=== PATIENT | male | born 1965 | race Caucasian/White ===

== ENCOUNTER 2020-07-02 17:47 | Inpatient (IN) | payer OTHER, SELFPAY ==
[~2020-07-02] VITALS: Ht 175.3 cm; Wt 150.1 kg
[2020-07-02 18:09] VITALS: BP_SYST 164
[2020-07-02] MEDS ORDERED: LEVOFLOXACIN 500 MG/D5W 100 ML IV ONE (18:30)
[2020-07-02] MEDS ORDERED: IPRATROPIUM/ALBUTEROL SULFATE 3 ML AMPUL.NEB (DUONEB) INH ONE (18:30)
[2020-07-02] MEDS ORDERED: ALBUTEROL MDI INHALATION 8 GM INH INH PRN (18:45)
[2020-07-02 19:40] LABS: CALCIUM 8.1 mg/dL (8.4-11.0); CREATININE 1.4 mg/dL (0.55-1.30); POTASSIUM 5.3 mmol/L (3.5-5.1)
[2020-07-02 19:43] LABS: ALBUMIN 2.1 g/dL (3.4-4.8); TOTAL BILIRUBIN 0.4 mg/dL (0.0-1.0)
[2020-07-02 19:44] LABS: BASOPHILS # (AUTO) 0.1 K/uL (0.0-0.2); BASOPHILS % (AUTO) 0.9 % (0.0-2.0); HEMATOCRIT 51.9 % (36-54); HEMOGLOBIN 17.5 g/dL (14.0-18.0); LYMPHOCYTES # (AUTO) 0.9 K/uL (1.0-5.5); LYMPHOCYTES % (AUTO) 7.6 % (20.5-51.5); MEAN CORPUSCULAR HEMOGLOBIN 31 pg (27-31); MEAN CORPUSCULAR HGB CONC 34 % (32-36); MEAN CORPUSCULAR VOLUME 91 fL (79.0-98.0); MONOCYTES # (AUTO) 0.9 K/uL (0.0-1.0); MONOCYTES % (AUTO) 7.2 % (1.7-9.3); NEUTROPHILS % (AUTO) 84.3 % (40.0-70.0); PLATELET COUNT (AUTO) 323 K/uL (130-430); RED BLOOD CELL COUNT(AUTO) 5.69 MIL/uL (4.2-6.2); RED CELL DISTRIBUTION WIDTH 12.6 % (9.0-15.0); WHITE BLOOD COUNT (AUTO) 11.9 K/uL (4.8-10.8)
[2020-07-02 20:04] LABS: PROTHROMBIN TIME 10.4 SECS (9.5-12.5)
[2020-07-02 20:04] LABS: BILIRUBIN,URINE NEGATIVE (NEGATIVE); BLOOD, URINE 2+ (NEGATIVE); CLARITY/URINE CLEAR (CLEAR); COLOR,URINE YELLOW (YELLOW); GLUCOSE,URINE 3+ (NEGATIVE); KETONES,URINE 1+ (NEGATIVE); LEUKOCYTE ESTERASE ,URINE NEGATIVE (NEGATIVE); NITRITE, URINE NEGATIVE (NEGATIVE); PH,URINE 5.5 (5.0-8.0); PROTEIN URINE 2+ (NEGATIVE); UROBILINOGEN,URINE 0.2 (0.2-1.0)
[2020-07-02 20:15] LABS: RBC,URINE 0-3 /HPF (0-3)
[2020-07-02 20:16] LABS: BACTERIA,URINE RARE /HPF (None Seen); MUCUS,URINE None Seen /LPF (None Seen); WBC,URINE 0-3 /HPF (0-3)
[2020-07-02] MEDS ORDERED: COMMUNICATION ORDER XX ONE (21:30)
[2020-07-02] MEDS ORDERED: ONDANSETRON HCL 4 MG/2 ML VIAL IVP PRN (21:30)
[2020-07-02] MEDS ORDERED: HYDROcodone/ACETAMIN 7.5-325 MG TAB PO PRN (21:30)
[2020-07-02] MEDS ORDERED: ZOLPIDEM TARTRATE 5 MG TABLET PO PRN (21:30)
[2020-07-02] MEDS ORDERED: ACETAMINOPHEN 500 MG TABLET PO PRN (21:30)
[2020-07-02] MEDS ORDERED: DOCUSATE SODIUM 100 MG/10 ML UDC PO PRN (21:30)
[2020-07-02] MEDS ORDERED: DECADRON 4 MG TABLET ONE (22:46)
[2020-07-02] MEDS ORDERED: HEPARIN SODIUM,PORCINE 5,000 UNITS/ML VIAL ONE (22:47)
[2020-07-02] MEDS ORDERED: cefTRIAXone 1 GM IVPB PREMIX 50 ML IV ONE (22:48)
[2020-07-02] MEDS: cefTRIAXone 1 GM in D5W 50 ML IV SCH (23:03)
[2020-07-02] MEDS: DECADRON 4 MG TABLET PO SCH (23:03)
[2020-07-02] MEDS: NACL 0.9% 1,000 ML IV SCH (23:09)
[2020-07-02] MEDS: HEPARIN SODIUM,PORCINE 5,000 UNITS/ML VIAL SUBCUT SCH (23:10)
[2020-07-02 23:15] VITALS: BP_SYST 172
[2020-07-02 23:49] LABS: FREE T4 (FREE THYROXINE) 0.7 ng/dL (0.6-1.6); PHOSPHORUS 4.7 mg/dL (2.7-4.5); THYROID STIMULATING HORMONE 1.7 uIu/mL (0.34-4.82)
[2020-07-03] MEDS ORDERED: ENALAPRIL MALEATE Non-Formular 5 MG TABLET PO ONE (02:15)
[2020-07-03] MEDS ORDERED: LISINOPRIL 10 MG TABLET (PRINIVIL) PO ONE (03:00)
[2020-07-03] MEDS ORDERED: LISINOPRIL 10 MG TABLET (PRINIVIL) ONE (04:14)
[2020-07-03 04:38] LABS: INFLUENZA A&B ANTIGEN SCREEN NEGATIVE FOR A & B (NEGATIVE)
[2020-07-03] MEDS: NACL 0.9% 1,000 ML IV SCH ×3 (05:30→20:42)
[2020-07-03 07:31] LABS: BASOPHILS % (AUTO) 0.2 % (0.0-2.0); HEMATOCRIT 48.9 % (36-54); HEMOGLOBIN 16.7 g/dL (14.0-18.0); LYMPHOCYTES # (AUTO) 1.1 K/uL (1.0-5.5); LYMPHOCYTES % (AUTO) 9.1 % (20.5-51.5); MEAN CORPUSCULAR HEMOGLOBIN 31 pg (27-31); MEAN CORPUSCULAR HGB CONC 34 % (32-36); MEAN CORPUSCULAR VOLUME 91 fL (79.0-98.0); MONOCYTES # (AUTO) 0.8 K/uL (0.0-1.0); NEUTROPHILS % (AUTO) 83.7 % (40.0-70.0); PLATELET COUNT (AUTO) 297 K/uL (130-430); RED BLOOD CELL COUNT(AUTO) 5.37 MIL/uL (4.2-6.2); RED CELL DISTRIBUTION WIDTH 12.3 % (9.0-15.0)
[2020-07-03 08:00] VITALS: BP_SYST 156
[2020-07-03 08:08] LABS: ALBUMIN 1.8 g/dL (3.4-4.8); CALCIUM 7.4 mg/dL (8.4-11.0); CREATININE 1.36 mg/dL (0.55-1.30); POTASSIUM 5.3 mmol/L (3.5-5.1); TOTAL BILIRUBIN 0.3 mg/dL (0.0-1.0)
[2020-07-03] MEDS: HEPARIN SODIUM,PORCINE 5,000 UNITS/ML VIAL SUBCUT SCH (08:31)
[2020-07-03] MEDS: LISINOPRIL 10 MG TABLET (PRINIVIL) PO SCH ×2 (08:39→20:43)
[2020-07-03] MEDS: DECADRON 4 MG TABLET PO SCH (08:39)
[2020-07-03] MEDS: ASCORBIC ACID 500 MG TABLET PO SCH (08:39)
[2020-07-03] MEDS: PANTOPRAZOLE SODIUM 40 MG TAB PO SCH (08:39)
[2020-07-03] MEDS: AZITHROMYCIN 250 MG TABLET PO SCH (08:40)
[2020-07-03] MEDS: CHOLECALCIFEROL (VITAMIN D3) 5,000 UNIT TABLET PO SCH (08:40)
[2020-07-03 08:50] LABS: C-REACTIVE PROTEIN QUANT 5.5 mg/dL (0-0.5)
[2020-07-03] MEDS ORDERED: ENALAPRIL MALEATE Non-Formular 5 MG TABLET PO SCH (09:00)
[2020-07-03] MEDS ORDERED: ASCORBIC ACID 500 MG TABLET PO SCH (09:00)
[2020-07-03] MEDS ORDERED: POTASSIUM CHLORIDE 20 MEQ TAB.PRT.SR PO PRN (09:00)
[2020-07-03] MEDS ORDERED: D5W 1,000 ML IV PRN (12:15)
[2020-07-03] MEDS ORDERED: INSULIN REGULAR, HUMAN 100 UNITS/ML, 10 ML VIAL SUBCUT ONE (12:15)
[2020-07-03] MEDS ORDERED: GLUCOSE (DEXTROSE) ORAL GEL -Adults PO PRN (12:15)
[2020-07-03] MEDS ORDERED: DEXTROSE 50%-WATER 50 ML DISP.SYRIN IVP PRN (12:15)
[2020-07-03 12:24] LABS: ERYTHROCYTE SEDIMENTATION RATE 25 MM/HR (0-15)
[2020-07-03 12:30] VITALS: BP_SYST 163
[2020-07-03 16:13] VITALS: BP_SYST 165
[2020-07-03] MEDS ORDERED: *LOVENOX 1MG/KG Q24H/PHARMACY XX ONE (17:15)
[2020-07-03] MEDS: INSULIN REGULAR, HUMAN 100 UNITS/ML, 10 ML VIAL (humuLIN R) SUBCUT PRN (17:25)
[2020-07-03] MEDS: ENOXAPARIN SODIUM 120 MG/0.8 ML SYRINGE SUBCUT SCH (17:29)
[2020-07-03] MEDS: metFORMIN HCL 500 MG TABLET PO SCH (17:35)
[2020-07-03 20:37] VITALS: BP_SYST 142
[2020-07-03] MEDS: cefTRIAXone 1 GM in D5W 50 ML IV SCH (20:43)
[2020-07-03] MEDS ORDERED: INSULIN GLARGINE 100 UNITS/ML 10 ML VIAL SUBCUT ONE (21:45)
[2020-07-04] VITALS: BP_SYST 147
[2020-07-04] MEDS: NACL 0.9% 1,000 ML IV SCH ×3 (06:32→21:00)
[2020-07-04] MEDS: INSULIN REGULAR, HUMAN 100 UNITS/ML, 10 ML VIAL (humuLIN R) SUBCUT PRN ×4 (06:37→21:00)
[2020-07-04] MEDS: metFORMIN HCL 500 MG TABLET PO SCH ×2 (08:09→17:46)
[2020-07-04] MEDS: ASCORBIC ACID 500 MG TABLET PO SCH (08:09)
[2020-07-04] MEDS: PANTOPRAZOLE SODIUM 40 MG TAB PO SCH (08:09)
[2020-07-04] MEDS: AZITHROMYCIN 250 MG TABLET PO SCH (08:10)
[2020-07-04] MEDS: DECADRON 4 MG TABLET PO SCH (08:10)
[2020-07-04] MEDS: LISINOPRIL 10 MG TABLET (PRINIVIL) PO SCH ×2 (08:14→21:00)
[2020-07-04] MEDS: CHOLECALCIFEROL (VITAMIN D3) 5,000 UNIT TABLET PO SCH (08:14)
[2020-07-04 08:16] VITALS: BP_SYST 152
[2020-07-04 11:27] LABS: HEMATOCRIT 50.4 % (36-54); HEMOGLOBIN 17.1 g/dL (14.0-18.0); LYMPHOCYTES # (AUTO) 0.9 K/uL (1.0-5.5); LYMPHOCYTES % (AUTO) 6.5 % (20.5-51.5); MEAN CORPUSCULAR HEMOGLOBIN 31 pg (27-31); MEAN CORPUSCULAR HGB CONC 34 % (32-36); MEAN CORPUSCULAR VOLUME 91 fL (79.0-98.0); MONOCYTES # (AUTO) 0.8 K/uL (0.0-1.0); NEUTROPHILS # (AUTO) 11.9 K/uL (1.8-7.7); NEUTROPHILS % (AUTO) 87.5 % (40.0-70.0); PLATELET COUNT (AUTO) 317 K/uL (130-430); RED BLOOD CELL COUNT(AUTO) 5.56 MIL/uL (4.2-6.2); RED CELL DISTRIBUTION WIDTH 12.2 % (9.0-15.0); WHITE BLOOD COUNT (AUTO) 13.7 K/uL (4.8-10.8)
[2020-07-04 11:45] VITALS: BP_SYST 150
[2020-07-04 12:40] LABS: ALBUMIN 1.9 g/dL (3.4-4.8); CALCIUM 7.3 mg/dL (8.4-11.0); CREATININE 1.12 mg/dL (0.55-1.30); POTASSIUM 5.3 mmol/L (3.5-5.1); TOTAL BILIRUBIN 0.5 mg/dL (0.0-1.0)
[2020-07-04] MEDS ORDERED: glipiZIDE XL 5 MG TAB ( GLUCOTROL XL) PO ONE (14:45)
[2020-07-04 14:59] LABS: C-REACTIVE PROTEIN QUANT 2.8 mg/dL (0-0.5)
[2020-07-04 16:15] VITALS: BP_SYST 150
[2020-07-04 17:09] LABS: ERYTHROCYTE SEDIMENTATION RATE 8 MM/HR (0-15)
[2020-07-04 17:27] VITALS: BP_SYST 135
[2020-07-04] MEDS: ENOXAPARIN SODIUM 120 MG/0.8 ML SYRINGE SUBCUT SCH (17:47)
[2020-07-04 20:00] VITALS: BP_SYST 152
[2020-07-04] MEDS: INSULIN GLARGINE 100 UNITS/ML 10 ML VIAL SUBCUT SCH (21:00)
[2020-07-04] MEDS: cefTRIAXone 1 GM in D5W 50 ML IV SCH (21:00)
[2020-07-05 00:45] VITALS: BP_SYST 146
[2020-07-05] MEDS: NACL 0.9% 1,000 ML IV SCH ×3 (05:46→20:49)
[2020-07-05 08:00] VITALS: BP_SYST 127
[2020-07-05] MEDS: AZITHROMYCIN 250 MG TABLET PO SCH (09:20)
[2020-07-05] MEDS: ASCORBIC ACID 500 MG TABLET PO SCH (09:20)
[2020-07-05] MEDS: PANTOPRAZOLE SODIUM 40 MG TAB PO SCH (09:21)
[2020-07-05] MEDS: DECADRON 4 MG TABLET PO SCH (09:22)
[2020-07-05] MEDS: metFORMIN HCL 500 MG TABLET PO SCH ×2 (09:23→17:30)
[2020-07-05] MEDS: glipiZIDE XL 5 MG TAB ( GLUCOTROL XL) PO SCH (09:23)
[2020-07-05] MEDS: LISINOPRIL 10 MG TABLET (PRINIVIL) PO SCH ×2 (09:34→20:54)
[2020-07-05] MEDS: CHOLECALCIFEROL (VITAMIN D3) 5,000 UNIT TABLET PO SCH (09:35)
[2020-07-05 10:03] LABS: BASOPHILS % (AUTO) 0.1 % (0.0-2.0); EOSINOPHILS % (AUTO) 0.1 % (0.0-4.0); HEMATOCRIT 49.5 % (36-54); HEMOGLOBIN 16.9 g/dL (14.0-18.0); LYMPHOCYTES # (AUTO) 0.9 K/uL (1.0-5.5); LYMPHOCYTES % (AUTO) 6.6 % (20.5-51.5); MEAN CORPUSCULAR HEMOGLOBIN 30 pg (27-31); MEAN CORPUSCULAR HGB CONC 34 % (32-36); MEAN CORPUSCULAR VOLUME 89 fL (79.0-98.0); MONOCYTES # (AUTO) 0.7 K/uL (0.0-1.0); MONOCYTES % (AUTO) 5.2 % (1.7-9.3); NEUTROPHILS # (AUTO) 11.9 K/uL (1.8-7.7); PLATELET COUNT (AUTO) 281 K/uL (130-430); RED BLOOD CELL COUNT(AUTO) 5.55 MIL/uL (4.2-6.2); RED CELL DISTRIBUTION WIDTH 12.5 % (9.0-15.0); WHITE BLOOD COUNT (AUTO) 13.5 K/uL (4.8-10.8)
[2020-07-05 10:41] LABS: ALBUMIN 1.7 g/dL (3.4-4.8); CREATININE 1.02 mg/dL (0.55-1.30); POTASSIUM 4.2 mmol/L (3.5-5.1); TOTAL BILIRUBIN 0.3 mg/dL (0.0-1.0)
[2020-07-05 10:47] LABS: CALCIUM 7.7 mg/dL (8.4-11.0)
[2020-07-05 11:30] VITALS: BP_SYST 93
[2020-07-05 11:30] LABS: ERYTHROCYTE SEDIMENTATION RATE 65 MM/HR (0-15)
[2020-07-05 11:56] LABS: C-REACTIVE PROTEIN QUANT 5.4 mg/dL (0-0.5)
[2020-07-05 15:07] VITALS: BP_SYST 152
[2020-07-05] MEDS: ENOXAPARIN SODIUM 120 MG/0.8 ML SYRINGE SUBCUT SCH (17:31)
[2020-07-05] MEDS: INSULIN REGULAR, HUMAN 100 UNITS/ML, 10 ML VIAL (humuLIN R) SUBCUT PRN ×2 (17:35→20:57)
[2020-07-05 19:00] VITALS: BP_SYST 152
[2020-07-05 20:00] VITALS: BP_SYST 152
[2020-07-05] MEDS: cefTRIAXone 1 GM in D5W 50 ML IV SCH (20:54)
[2020-07-05] MEDS: INSULIN GLARGINE 100 UNITS/ML 10 ML VIAL SUBCUT SCH (20:56)
[2020-07-06] VITALS: BP_SYST 145
[2020-07-06] MEDS: NACL 0.9% 1,000 ML IV SCH ×3 (05:22→21:39)
[2020-07-06 08:00] VITALS: BP_SYST 140
[2020-07-06] MEDS: metFORMIN HCL 500 MG TABLET PO SCH ×2 (08:59→17:55)
[2020-07-06] MEDS: CHOLECALCIFEROL (VITAMIN D3) 5,000 UNIT TABLET PO SCH (09:00)
[2020-07-06] MEDS: DECADRON 4 MG TABLET PO SCH (09:00)
[2020-07-06] MEDS: ASCORBIC ACID 500 MG TABLET PO SCH (09:00)
[2020-07-06] MEDS: PANTOPRAZOLE SODIUM 40 MG TAB PO SCH (09:00)
[2020-07-06] MEDS: AZITHROMYCIN 250 MG TABLET PO SCH (09:00)
[2020-07-06] MEDS: glipiZIDE XL 5 MG TAB ( GLUCOTROL XL) PO SCH (09:00)
[2020-07-06] MEDS: LISINOPRIL 10 MG TABLET (PRINIVIL) PO SCH ×2 (09:02→21:39)
[2020-07-06 10:11] LABS: BASOPHILS % (AUTO) 0.2 % (0.0-2.0); EOSINOPHILS # (AUTO) 0.1 K/uL (0.0-0.4); EOSINOPHILS % (AUTO) 0.8 % (0.0-4.0); HEMATOCRIT 48.2 % (36-54); HEMOGLOBIN 16.5 g/dL (14.0-18.0); LYMPHOCYTES # (AUTO) 0.5 K/uL (1.0-5.5); LYMPHOCYTES % (AUTO) 4.9 % (20.5-51.5); MEAN CORPUSCULAR HEMOGLOBIN 31 pg (27-31); MEAN CORPUSCULAR HGB CONC 34 % (32-36); MEAN CORPUSCULAR VOLUME 91 fL (79.0-98.0); MONOCYTES # (AUTO) 0.6 K/uL (0.0-1.0); MONOCYTES % (AUTO) 5.7 % (1.7-9.3); NEUTROPHILS # (AUTO) 8.8 K/uL (1.8-7.7); NEUTROPHILS % (AUTO) 88.4 % (40.0-70.0); PLATELET COUNT (AUTO) 176 K/uL (130-430); RED BLOOD CELL COUNT(AUTO) 5.33 MIL/uL (4.2-6.2); RED CELL DISTRIBUTION WIDTH 12.5 % (9.0-15.0)
[2020-07-06 10:42] LABS: ALBUMIN 1.5 g/dL (3.4-4.8); CALCIUM 7.5 mg/dL (8.4-11.0); CREATININE 0.99 mg/dL (0.55-1.30); POTASSIUM 4.9 mmol/L (3.5-5.1); TOTAL BILIRUBIN 0.5 mg/dL (0.0-1.0)
[2020-07-06 12:00] VITALS: BP_SYST 142
[2020-07-06] MEDS: INSULIN REGULAR, HUMAN 100 UNITS/ML, 10 ML VIAL (humuLIN R) SUBCUT PRN ×2 (12:22→18:15)
[2020-07-06 12:36] LABS: ERYTHROCYTE SEDIMENTATION RATE 11 MM/HR (0-15)
[2020-07-06 13:19] LABS: C-REACTIVE PROTEIN QUANT 11.7 mg/dL (0-0.5)
[2020-07-06] MEDS: ENOXAPARIN SODIUM 120 MG/0.8 ML SYRINGE SUBCUT SCH (15:41)
[2020-07-06 16:00] VITALS: BP_SYST 144
[2020-07-06 20:00] VITALS: BP_SYST 129
[2020-07-06] MEDS: INSULIN GLARGINE 100 UNITS/ML 10 ML VIAL SUBCUT SCH (21:00)
[2020-07-06] MEDS: DOXYCYCLINE HYCLATE 100 MG in D5W 100 ML IV SCH (21:38)
[2020-07-06] MEDS: cefTRIAXone 1 GM in D5W 50 ML IV SCH (21:39)
[2020-07-07] MEDS: INSULIN REGULAR, HUMAN 100 UNITS/ML, 10 ML VIAL (humuLIN R) SUBCUT PRN ×3 (00:38→21:41)
[2020-07-07] MEDS: ENOXAPARIN SODIUM 120 MG/0.8 ML SYRINGE SUBCUT SCH ×2 (02:22→16:00)
[2020-07-07] MEDS: NACL 0.9% 1,000 ML IV SCH ×3 (06:48→22:00)
[2020-07-07 08:00] VITALS: BP_SYST 138
[2020-07-07] MEDS: metFORMIN HCL 500 MG TABLET PO SCH ×2 (08:00→19:27)
[2020-07-07 08:26] LABS: BASOPHILS # (AUTO) 0.1 K/uL (0.0-0.2); BASOPHILS % (AUTO) 0.5 % (0.0-2.0); EOSINOPHILS # (AUTO) 0.1 K/uL (0.0-0.4); EOSINOPHILS % (AUTO) 1.2 % (0.0-4.0); HEMATOCRIT 48.2 % (36-54); HEMOGLOBIN 16.5 g/dL (14.0-18.0); LYMPHOCYTES # (AUTO) 0.3 K/uL (1.0-5.5); LYMPHOCYTES % (AUTO) 3.1 % (20.5-51.5); MEAN CORPUSCULAR HEMOGLOBIN 31 pg (27-31); MEAN CORPUSCULAR HGB CONC 34 % (32-36); MEAN CORPUSCULAR VOLUME 91 fL (79.0-98.0); MONOCYTES # (AUTO) 0.6 K/uL (0.0-1.0); MONOCYTES % (AUTO) 5.5 % (1.7-9.3); NEUTROPHILS # (AUTO) 10.1 K/uL (1.8-7.7); NEUTROPHILS % (AUTO) 89.7 % (40.0-70.0); PLATELET COUNT (AUTO) 175 K/uL (130-430); RED BLOOD CELL COUNT(AUTO) 5.33 MIL/uL (4.2-6.2); RED CELL DISTRIBUTION WIDTH 12.7 % (9.0-15.0); WHITE BLOOD COUNT (AUTO) 11.3 K/uL (4.8-10.8)
[2020-07-07] MEDS: glipiZIDE XL 5 MG TAB ( GLUCOTROL XL) PO SCH (09:00)
[2020-07-07] MEDS: DOXYCYCLINE HYCLATE 100 MG in D5W 100 ML IV SCH ×2 (09:00→22:00)
[2020-07-07] MEDS: ASCORBIC ACID 500 MG TABLET PO SCH (09:00)
[2020-07-07 09:32] LABS: ALBUMIN 1.5 g/dL (3.4-4.8); CALCIUM 7.8 mg/dL (8.4-11.0); CREATININE 0.74 mg/dL (0.55-1.30); POTASSIUM 4.4 mmol/L (3.5-5.1); TOTAL BILIRUBIN 0.3 mg/dL (0.0-1.0)
[2020-07-07 09:33] LABS: ERYTHROCYTE SEDIMENTATION RATE 10 MM/HR (0-15)
[2020-07-07 10:49] VITALS: BP_SYST 138
[2020-07-07 10:49] LABS: C-REACTIVE PROTEIN QUANT 15.9 mg/dL (0-0.5)
[2020-07-07 11:07] VITALS: BP_SYST 127
[2020-07-07] MEDS: LISINOPRIL 10 MG TABLET (PRINIVIL) PO SCH ×2 (12:18→21:40)
[2020-07-07] MEDS: PANTOPRAZOLE SODIUM 40 MG TAB PO SCH (12:23)
[2020-07-07] MEDS: CHOLECALCIFEROL (VITAMIN D3) 5,000 UNIT TABLET PO SCH (12:24)
[2020-07-07] MEDS: IVERMECTIN 3 MG TABLET PO SCH (12:24)
[2020-07-07] MEDS: DECADRON 4 MG TABLET PO SCH (12:24)
[2020-07-07 15:31] VITALS: BP_SYST 142
[2020-07-07 20:15] VITALS: BP_SYST 152
[2020-07-07] MEDS: INSULIN GLARGINE 100 UNITS/ML 10 ML VIAL SUBCUT SCH (21:41)
[2020-07-07] MEDS: cefTRIAXone 1 GM in D5W 50 ML IV SCH (23:00)
[2020-07-08 00:15] VITALS: BP_SYST 125
[2020-07-08] MEDS: ENOXAPARIN SODIUM 120 MG/0.8 ML SYRINGE SUBCUT SCH ×2 (03:12→14:55)
[2020-07-08] MEDS: NACL 0.9% 1,000 ML IV SCH ×3 (06:20→22:30)
[2020-07-08] MEDS: INSULIN REGULAR, HUMAN 100 UNITS/ML, 10 ML VIAL (humuLIN R) SUBCUT PRN ×3 (06:25→17:59)
[2020-07-08 08:35] LABS: BASOPHILS % (AUTO) 0.2 % (0.0-2.0); EOSINOPHILS % (AUTO) 0.1 % (0.0-4.0); HEMOGLOBIN 15.8 g/dL (14.0-18.0); LYMPHOCYTES # (AUTO) 0.2 K/uL (1.0-5.5); LYMPHOCYTES % (AUTO) 2.9 % (20.5-51.5); MEAN CORPUSCULAR HEMOGLOBIN 31 pg (27-31); MEAN CORPUSCULAR HGB CONC 34 % (32-36); MEAN CORPUSCULAR VOLUME 91 fL (79.0-98.0); MONOCYTES # (AUTO) 0.6 K/uL (0.0-1.0); MONOCYTES % (AUTO) 6.7 % (1.7-9.3); NEUTROPHILS # (AUTO) 7.4 K/uL (1.8-7.7); NEUTROPHILS % (AUTO) 90.1 % (40.0-70.0); PLATELET COUNT (AUTO) 189 K/uL (130-430); RED BLOOD CELL COUNT(AUTO) 5.09 MIL/uL (4.2-6.2); RED CELL DISTRIBUTION WIDTH 12.4 % (9.0-15.0); WHITE BLOOD COUNT (AUTO) 8.2 K/uL (4.8-10.8)
[2020-07-08 09:00] VITALS: BP_SYST 124
[2020-07-08 09:00] LABS: ALBUMIN 1.5 g/dL (3.4-4.8); CALCIUM 7.6 mg/dL (8.4-11.0); CREATININE 0.74 mg/dL (0.55-1.30); POTASSIUM 4.6 mmol/L (3.5-5.1); TOTAL BILIRUBIN 0.3 mg/dL (0.0-1.0)
[2020-07-08] MEDS: glipiZIDE XL 5 MG TAB ( GLUCOTROL XL) PO SCH (09:33)
[2020-07-08] MEDS: metFORMIN HCL 500 MG TABLET PO SCH ×2 (09:33→18:37)
[2020-07-08] MEDS: DECADRON 4 MG TABLET PO SCH (09:33)
[2020-07-08] MEDS: ASCORBIC ACID 500 MG TABLET PO SCH (09:34)
[2020-07-08] MEDS: LISINOPRIL 10 MG TABLET (PRINIVIL) PO SCH ×2 (09:34→21:30)
[2020-07-08] MEDS: PANTOPRAZOLE SODIUM 40 MG TAB PO SCH (09:34)
[2020-07-08] MEDS: DOXYCYCLINE HYCLATE 100 MG in D5W 100 ML IV SCH ×2 (09:35→21:30)
[2020-07-08] MEDS: CHOLECALCIFEROL (VITAMIN D3) 5,000 UNIT TABLET PO SCH (09:43)
[2020-07-08] MEDS: IVERMECTIN 3 MG TABLET PO SCH (09:44)
[2020-07-08 10:21] LABS: C-REACTIVE PROTEIN QUANT 18.3 mg/dL (0-0.5)
[2020-07-08 11:20] VITALS: BP_SYST 131
[2020-07-08 11:35] LABS: ERYTHROCYTE SEDIMENTATION RATE 17 MM/HR (0-15)
[2020-07-08 15:15] VITALS: BP_SYST 130
[2020-07-08 20:05] VITALS: BP_SYST 149
[2020-07-08] MEDS: INSULIN GLARGINE 100 UNITS/ML 10 ML VIAL SUBCUT SCH (22:30)
[2020-07-08] MEDS: cefTRIAXone 1 GM in D5W 50 ML IV SCH (22:30)
[2020-07-09 00:05] VITALS: BP_SYST 145
[2020-07-09] MEDS: NACL 0.9% 1,000 ML IV SCH ×3 (01:15→14:16)
[2020-07-09] MEDS: ENOXAPARIN SODIUM 120 MG/0.8 ML SYRINGE SUBCUT SCH ×2 (05:00→14:16)
[2020-07-09 06:47] LABS: BASOPHILS # (AUTO) 0.1 K/uL (0.0-0.2); BASOPHILS % (AUTO) 0.5 % (0.0-2.0); EOSINOPHILS % (AUTO) 0.3 % (0.0-4.0); HEMATOCRIT 45.8 % (36-54); HEMOGLOBIN 15.8 g/dL (14.0-18.0); LYMPHOCYTES # (AUTO) 0.3 K/uL (1.0-5.5); LYMPHOCYTES % (AUTO) 2.5 % (20.5-51.5); MEAN CORPUSCULAR HEMOGLOBIN 31 pg (27-31); MEAN CORPUSCULAR HGB CONC 35 % (32-36); MEAN CORPUSCULAR VOLUME 90 fL (79.0-98.0); MONOCYTES # (AUTO) 0.8 K/uL (0.0-1.0); MONOCYTES % (AUTO) 6.1 % (1.7-9.3); NEUTROPHILS # (AUTO) 11.6 K/uL (1.8-7.7); NEUTROPHILS % (AUTO) 90.6 % (40.0-70.0); PLATELET COUNT (AUTO) 219 K/uL (130-430); RED BLOOD CELL COUNT(AUTO) 5.07 MIL/uL (4.2-6.2); RED CELL DISTRIBUTION WIDTH 12.9 % (9.0-15.0); WHITE BLOOD COUNT (AUTO) 12.8 K/uL (4.8-10.8)
[2020-07-09 07:22] LABS: ALBUMIN 1.5 g/dL (3.4-4.8); CALCIUM 7.9 mg/dL (8.4-11.0); CREATININE 0.76 mg/dL (0.55-1.30); POTASSIUM 4.4 mmol/L (3.5-5.1); TOTAL BILIRUBIN 0.1 mg/dL (0.0-1.0)
[2020-07-09 07:49] LABS: C-REACTIVE PROTEIN QUANT 10.1 mg/dL (0-0.5)
[2020-07-09 08:45] VITALS: BP_SYST 126
[2020-07-09] MEDS: PANTOPRAZOLE SODIUM 40 MG TAB PO SCH (08:45)
[2020-07-09] MEDS: ASCORBIC ACID 500 MG TABLET PO SCH (08:45)
[2020-07-09] MEDS: glipiZIDE XL 5 MG TAB ( GLUCOTROL XL) PO SCH (08:45)
[2020-07-09] MEDS: CHOLECALCIFEROL (VITAMIN D3) 5,000 UNIT TABLET PO SCH (08:45)
[2020-07-09] MEDS: metFORMIN HCL 500 MG TABLET PO SCH ×2 (08:45→18:13)
[2020-07-09] MEDS: DOXYCYCLINE HYCLATE 100 MG in D5W 100 ML IV SCH ×2 (08:45→20:43)
[2020-07-09] MEDS: DECADRON 4 MG TABLET PO SCH (08:45)
[2020-07-09 10:08] LABS: ERYTHROCYTE SEDIMENTATION RATE 14 MM/HR (0-15)
[2020-07-09] MEDS: INSULIN REGULAR, HUMAN 100 UNITS/ML, 10 ML VIAL (humuLIN R) SUBCUT PRN (18:13)
[2020-07-09 20:00] VITALS: BP_SYST 143
[2020-07-09] MEDS: lisinopriL 5 MG TABLET PO SCH (20:43)
[2020-07-09] MEDS: INSULIN GLARGINE 100 UNITS/ML 10 ML VIAL SUBCUT SCH (20:44)
[2020-07-10] VITALS: BP_SYST 145
[2020-07-10] MEDS: ENOXAPARIN SODIUM 120 MG/0.8 ML SYRINGE SUBCUT SCH ×2 (01:23→14:30)
[2020-07-10] MEDS: NACL 0.9% 1,000 ML IV SCH ×3 (05:30→21:30)
[2020-07-10 06:53] LABS: BASOPHILS % (AUTO) 0.1 % (0.0-2.0); EOSINOPHILS % (AUTO) 0.2 % (0.0-4.0); HEMATOCRIT 45.4 % (36-54); HEMOGLOBIN 15.3 g/dL (14.0-18.0); LYMPHOCYTES # (AUTO) 0.4 K/uL (1.0-5.5); LYMPHOCYTES % (AUTO) 3.9 % (20.5-51.5); MEAN CORPUSCULAR HEMOGLOBIN 31 pg (27-31); MEAN CORPUSCULAR HGB CONC 34 % (32-36); MEAN CORPUSCULAR VOLUME 91 fL (79.0-98.0); MONOCYTES # (AUTO) 0.7 K/uL (0.0-1.0); NEUTROPHILS % (AUTO) 89.8 % (40.0-70.0); PLATELET COUNT (AUTO) 196 K/uL (130-430); RED BLOOD CELL COUNT(AUTO) 4.98 MIL/uL (4.2-6.2); RED CELL DISTRIBUTION WIDTH 12.7 % (9.0-15.0); WHITE BLOOD COUNT (AUTO) 11.2 K/uL (4.8-10.8)
[2020-07-10 07:02] LABS: ALBUMIN 1.4 g/dL (3.4-4.8); CALCIUM 7.7 mg/dL (8.4-11.0); CREATININE 0.77 mg/dL (0.55-1.30); POTASSIUM 4.3 mmol/L (3.5-5.1); TOTAL BILIRUBIN 0.3 mg/dL (0.0-1.0)
[2020-07-10 08:00] VITALS: BP_SYST 142
[2020-07-10] MEDS: ASCORBIC ACID 500 MG TABLET PO SCH (08:45)
[2020-07-10] MEDS: PANTOPRAZOLE SODIUM 40 MG TAB PO SCH (08:46)
[2020-07-10] MEDS: DECADRON 4 MG TABLET PO SCH (08:46)
[2020-07-10] MEDS: CHOLECALCIFEROL (VITAMIN D3) 5,000 UNIT TABLET PO SCH (08:46)
[2020-07-10] MEDS: glipiZIDE XL 5 MG TAB ( GLUCOTROL XL) PO SCH (08:46)
[2020-07-10] MEDS: lisinopriL 5 MG TABLET PO SCH ×2 (08:47→20:58)
[2020-07-10] MEDS: metFORMIN HCL 500 MG TABLET PO SCH ×2 (08:47→17:25)
[2020-07-10] MEDS: DOXYCYCLINE HYCLATE 100 MG in D5W 100 ML IV SCH ×2 (08:50→20:58)
[2020-07-10 10:03] LABS: ERYTHROCYTE SEDIMENTATION RATE 13 MM/HR (0-15)
[2020-07-10 12:36] VITALS: BP_SYST 138
[2020-07-10 12:50] VITALS: BP_SYST 138
[2020-07-10 16:00] VITALS: BP_SYST 133
[2020-07-10 20:00] VITALS: BP_SYST 131
[2020-07-10] MEDS: INSULIN GLARGINE 100 UNITS/ML 10 ML VIAL SUBCUT SCH (21:09)
[2020-07-10] MEDS: INSULIN REGULAR, HUMAN 100 UNITS/ML, 10 ML VIAL (humuLIN R) SUBCUT PRN (21:10)
[2020-07-11] VITALS: BP_SYST 135
[2020-07-11] MEDS: ENOXAPARIN SODIUM 120 MG/0.8 ML SYRINGE SUBCUT SCH ×2 (02:34→14:34)
[2020-07-11] MEDS: NACL 0.9% 1,000 ML IV SCH ×3 (06:30→21:30)
[2020-07-11 08:00] VITALS: BP_SYST 147
[2020-07-11 08:52] LABS: BASOPHILS % (AUTO) 0.3 % (0.0-2.0); EOSINOPHILS % (AUTO) 0.3 % (0.0-4.0); HEMATOCRIT 45.5 % (36-54); HEMOGLOBIN 15.5 g/dL (14.0-18.0); LYMPHOCYTES # (AUTO) 0.5 K/uL (1.0-5.5); LYMPHOCYTES % (AUTO) 4.6 % (20.5-51.5); MEAN CORPUSCULAR HEMOGLOBIN 31 pg (27-31); MEAN CORPUSCULAR HGB CONC 34 % (32-36); MEAN CORPUSCULAR VOLUME 91 fL (79.0-98.0); MONOCYTES # (AUTO) 0.4 K/uL (0.0-1.0); MONOCYTES % (AUTO) 3.7 % (1.7-9.3); NEUTROPHILS # (AUTO) 10.3 K/uL (1.8-7.7); NEUTROPHILS % (AUTO) 91.1 % (40.0-70.0); PLATELET COUNT (AUTO) 178 K/uL (130-430); RED CELL DISTRIBUTION WIDTH 12.9 % (9.0-15.0); WHITE BLOOD COUNT (AUTO) 11.2 K/uL (4.8-10.8)
[2020-07-11 09:37] LABS: CREATININE 0.72 mg/dL (0.55-1.30); POTASSIUM 4.1 mmol/L (3.5-5.1)
[2020-07-11] MEDS: glipiZIDE XL 5 MG TAB ( GLUCOTROL XL) PO SCH (10:01)
[2020-07-11] MEDS: PANTOPRAZOLE SODIUM 40 MG TAB PO SCH (10:01)
[2020-07-11] MEDS: metFORMIN HCL 500 MG TABLET PO SCH ×2 (10:02→17:07)
[2020-07-11] MEDS: lisinopriL 5 MG TABLET PO SCH ×2 (10:02→21:00)
[2020-07-11] MEDS: DECADRON 4 MG TABLET PO SCH (10:02)
[2020-07-11] MEDS: ASCORBIC ACID 500 MG TABLET PO SCH (10:02)
[2020-07-11] MEDS: CHOLECALCIFEROL (VITAMIN D3) 5,000 UNIT TABLET PO SCH (10:03)
[2020-07-11] MEDS: DOXYCYCLINE HYCLATE 100 MG in D5W 100 ML IV SCH ×2 (10:03→21:00)
[2020-07-11 12:02] LABS: C-REACTIVE PROTEIN QUANT 13.8 mg/dL (0-0.5)
[2020-07-11 17:09] VITALS: BP_SYST 127
[2020-07-11 19:21] LABS: ERYTHROCYTE SEDIMENTATION RATE 4 MM/HR (0-15)
[2020-07-11 20:00] VITALS: BP_SYST 128
[2020-07-11] MEDS: INSULIN GLARGINE 100 UNITS/ML 10 ML VIAL SUBCUT SCH (21:00)
[2020-07-12] VITALS: BP_SYST 132
[2020-07-12] MEDS: ENOXAPARIN SODIUM 120 MG/0.8 ML SYRINGE SUBCUT SCH ×2 (04:08→13:51)
[2020-07-12] MEDS: NACL 0.9% 1,000 ML IV SCH ×3 (05:30→21:30)
[2020-07-12 08:00] VITALS: BP_SYST 135
[2020-07-12] MEDS: metFORMIN HCL 500 MG TABLET PO SCH ×2 (08:00→18:00)
[2020-07-12] MEDS: glipiZIDE XL 5 MG TAB ( GLUCOTROL XL) PO SCH (09:00)
[2020-07-12] MEDS: ASCORBIC ACID 500 MG TABLET PO SCH (09:00)
[2020-07-12] MEDS: CHOLECALCIFEROL (VITAMIN D3) 5,000 UNIT TABLET PO SCH (09:00)
[2020-07-12] MEDS: lisinopriL 5 MG TABLET PO SCH ×2 (09:00→21:00)
[2020-07-12] MEDS: PANTOPRAZOLE SODIUM 40 MG TAB PO SCH (09:00)
[2020-07-12] MEDS: DOXYCYCLINE HYCLATE 100 MG in D5W 100 ML IV SCH ×2 (09:39→21:00)
[2020-07-12 10:05] LABS: BASOPHILS # (AUTO) 0.1 K/uL (0.0-0.2); BASOPHILS % (AUTO) 0.7 % (0.0-2.0); EOSINOPHILS % (AUTO) 0.2 % (0.0-4.0); HEMATOCRIT 45.9 % (36-54); HEMOGLOBIN 15.4 g/dL (14.0-18.0); LYMPHOCYTES # (AUTO) 0.4 K/uL (1.0-5.5); MEAN CORPUSCULAR HEMOGLOBIN 31 pg (27-31); MEAN CORPUSCULAR HGB CONC 34 % (32-36); MEAN CORPUSCULAR VOLUME 92 fL (79.0-98.0); MONOCYTES # (AUTO) 0.4 K/uL (0.0-1.0); NEUTROPHILS # (AUTO) 13.9 K/uL (1.8-7.7); NEUTROPHILS % (AUTO) 93.1 % (40.0-70.0); PLATELET COUNT (AUTO) 181 K/uL (130-430); RED CELL DISTRIBUTION WIDTH 12.6 % (9.0-15.0)
[2020-07-12 10:21] LABS: CALCIUM 7.7 mg/dL (8.4-11.0); CREATININE 0.79 mg/dL (0.55-1.30); PHOSPHORUS 3.1 mg/dL (2.7-4.5)
[2020-07-12 12:00] VITALS: BP_SYST 125
[2020-07-12 13:00] LABS: C-REACTIVE PROTEIN QUANT 16.1 mg/dL (0-0.5)
[2020-07-12] MEDS: PIPERACILLIN/TAZO 4.5GM/DEX-IS 100 ML IV SCH ×2 (15:19→22:00)
[2020-07-12 15:30] VITALS: BP_SYST 142
[2020-07-12 17:20] VITALS: BP_SYST 127
[2020-07-12] MEDS: INSULIN GLARGINE 100 UNITS/ML 10 ML VIAL SUBCUT SCH (21:00)
[2020-07-12] MEDS ORDERED: MIDAZOLAM HCL IN 0.9 % NACL/PF 50 ML IV ONE (22:02)
[2020-07-12] MEDS ORDERED: MORPHINE I.V. DRIP 100 ML IV ONE (22:03)
[2020-07-12] MEDS ORDERED: LORazepam 2 MG/ML VIAL ONE (23:10)
[2020-07-12 23:57] LABS: ERYTHROCYTE SEDIMENTATION RATE > 150 MM/HR (0-15)
[2020-07-13] VITALS (17 sets, daily range): BP systolic 46–148
[2020-07-13] MEDS: ENOXAPARIN SODIUM 120 MG/0.8 ML SYRINGE SUBCUT SCH ×3 (02:22→21:34)
[2020-07-13] MEDS ORDERED: NOREPINEPHRINE 4 MG/4 ML VIAL IV ONE ×4 (02:28→23:05)
[2020-07-13] MEDS ORDERED: ENOXAPARIN SODIUM 60 MG/0.6 ML SYRINGE ONE ×2 (04:15→04:19)
[2020-07-13] MEDS: NACL 0.9% 1,000 ML IV SCH ×3 (05:30→21:10)
[2020-07-13] MEDS: PIPERACILLIN/TAZO 4.5GM/DEX-IS 100 ML IV SCH ×3 (06:15→23:41)
[2020-07-13 07:03] LABS: BASOPHILS # (AUTO) 0.1 K/uL (0.0-0.2); BASOPHILS % (AUTO) 0.4 % (0.0-2.0); EOSINOPHILS # (AUTO) 0.1 K/uL (0.0-0.4); EOSINOPHILS % (AUTO) 0.5 % (0.0-4.0); HEMATOCRIT 46.7 % (36-54); HEMOGLOBIN 15.4 g/dL (14.0-18.0); LYMPHOCYTES # (AUTO) 1.1 K/uL (1.0-5.5); LYMPHOCYTES % (AUTO) 5.5 % (20.5-51.5); MEAN CORPUSCULAR HEMOGLOBIN 31 pg (27-31); MEAN CORPUSCULAR HGB CONC 33 % (32-36); MEAN CORPUSCULAR VOLUME 94 fL (79.0-98.0); MONOCYTES # (AUTO) 0.5 K/uL (0.0-1.0); MONOCYTES % (AUTO) 2.2 % (1.7-9.3); NEUTROPHILS # (AUTO) 18.7 K/uL (1.8-7.7); NEUTROPHILS % (AUTO) 91.4 % (40.0-70.0); PLATELET COUNT (AUTO) 217 K/uL (130-430); RED BLOOD CELL COUNT(AUTO) 4.99 MIL/uL (4.2-6.2); RED CELL DISTRIBUTION WIDTH 13.1 % (9.0-15.0); WHITE BLOOD COUNT (AUTO) 20.4 K/uL (4.8-10.8)
[2020-07-13 07:38] LABS: ALBUMIN 1.5 g/dL (3.4-4.8); CALCIUM 7.8 mg/dL (8.4-11.0); CREATININE 1.4 mg/dL (0.55-1.30); PHOSPHORUS 5.6 mg/dL (2.7-4.5); TOTAL BILIRUBIN 0.7 mg/dL (0.0-1.0)
[2020-07-13] MEDS: MIDAZOLAM HCL IN 0.9 % NACL/PF 50 ML IV PRN ×3 (07:56→19:16)
[2020-07-13 07:57] LABS: POTASSIUM 4.9 mmol/L (3.5-5.1)
[2020-07-13] MEDS: MORPHINE I.V. DRIP 100 ML IV PRN ×3 (08:10→23:43)
[2020-07-13] MEDS: NOREPINEPHRINE BITARTRATE 4 MG in D5W 246 ML IV PRN ×5 (08:15→13:18)
[2020-07-13] MEDS: INSULIN REGULAR, HUMAN 100 UNITS/ML, 10 ML VIAL (humuLIN R) SUBCUT PRN ×2 (09:00→22:37)
[2020-07-13] MEDS: glipiZIDE XL 5 MG TAB ( GLUCOTROL XL) PO SCH (11:04)
[2020-07-13] MEDS: metFORMIN HCL 500 MG TABLET PO SCH ×2 (11:04→17:29)
[2020-07-13] MEDS: lisinopriL 5 MG TABLET PO SCH ×2 (11:05→21:00)
[2020-07-13] MEDS: ASCORBIC ACID 500 MG TABLET PO SCH (11:06)
[2020-07-13] MEDS: CHOLECALCIFEROL (VITAMIN D3) 5,000 UNIT TABLET PO SCH (11:06)
[2020-07-13] MEDS: PANTOPRAZOLE SODIUM 40 MG TAB PO SCH (11:07)
[2020-07-13] MEDS: DOXYCYCLINE HYCLATE 100 MG in D5W 100 ML IV SCH (11:14)
[2020-07-13] MEDS: PANTOPRAZOLE SODIUM 40 MG/VIAL (PROTONIX) IVP SCH (11:15)
[2020-07-13] MEDS ORDERED: HYDROCORTISONE SOD SUCC 100 MG/2 ML VIAL ONE (16:43)
[2020-07-13] MEDS ORDERED: HYDROCORTISONE SOD SUCC 100 MG/2 ML VIAL IVP ONE (17:00)
[2020-07-13] MEDS ORDERED: NACL 0.9% 1,000 ML IV ONE (17:00)
[2020-07-13] MEDS: PHENYLEPHRINE HCL 100 MG in NS 240 ML IV PRN (17:31)
[2020-07-13] MEDS: NOREPINEPHRINE BITARTRATE 32 MG in D5W 218 ML IV PRN (19:18)
[2020-07-13] MEDS: ALBUMIN HUMAN 25% 100 ML IV SCH ×2 (21:07→23:43)
[2020-07-13] MEDS: HYDROCORTISONE SOD SUCC 100 MG/2 ML VIAL IVP SCH (21:08)
[2020-07-13] MEDS: VASOPRESSIN 100 UNITS in D5W 45 ML IV PRN (21:09)
[2020-07-13] MEDS: INSULIN GLARGINE 100 UNITS/ML 10 ML VIAL SUBCUT SCH (21:17)
[2020-07-13] MEDS ORDERED: COMMUNICATION ORDER XX ONE (21:45)
[2020-07-14] VITALS (31 sets, daily range): BP systolic 77–152
[2020-07-14] MEDS: MIDAZOLAM HCL IN 0.9 % NACL/PF 50 ML IV PRN ×3 (03:33→22:47)
[2020-07-14] MEDS: ALBUMIN HUMAN 25% 100 ML IV SCH (03:34)
[2020-07-14] MEDS: NACL 0.9% 1,000 ML IV SCH ×3 (05:17→21:30)
[2020-07-14] MEDS: PIPERACILLIN/TAZO 4.5GM/DEX-IS 100 ML IV SCH ×3 (05:17→22:18)
[2020-07-14] MEDS: HYDROCORTISONE SOD SUCC 100 MG/2 ML VIAL IVP SCH ×3 (05:18→22:18)
[2020-07-14] MEDS: INSULIN REGULAR, HUMAN 100 UNITS/ML, 10 ML VIAL (humuLIN R) SUBCUT PRN ×4 (06:25→22:14)
[2020-07-14 06:48] LABS: HEMATOCRIT 36.8 % (36-54); MEAN CORPUSCULAR HEMOGLOBIN 31 pg (27-31); MEAN CORPUSCULAR HGB CONC 33 % (32-36); MEAN CORPUSCULAR VOLUME 94 fL (79.0-98.0); PLATELET COUNT (AUTO) 144 K/uL (130-430); RED CELL DISTRIBUTION WIDTH 13.5 % (9.0-15.0)
[2020-07-14 07:23] LABS: ALBUMIN 1.8 g/dL (3.4-4.8); CREATININE 3.84 mg/dL (0.55-1.30); PHOSPHORUS 8.4 mg/dL (2.7-4.5); TOTAL BILIRUBIN 0.9 mg/dL (0.0-1.0)
[2020-07-14] MEDS ORDERED: COMMUNICATION ORDER XX ONE (08:00)
[2020-07-14] MEDS ORDERED: ACETAMINOPHEN 500 MG TABLET NG PRN (08:08)
[2020-07-14] MEDS ORDERED: ASCORBIC ACID 500 MG TABLET NG SCH (08:09)
[2020-07-14] MEDS ORDERED: CHOLECALCIFEROL (VITAMIN D3) 5,000 UNIT TABLET NG SCH (08:10)
[2020-07-14] MEDS ORDERED: DOCUSATE SODIUM 100 MG/10 ML UDC NG PRN (08:15)
[2020-07-14] MEDS ORDERED: POTASSIUM CHLORIDE 20 MEQ TAB.PRT.SR NG PRN (08:15)
[2020-07-14 08:46] LABS: WHITE BLOOD COUNT (AUTO) 19.8 K/uL (4.8-10.8)
[2020-07-14] MEDS ORDERED: SUCCINYLCHOLINE CHLORIDE 20 MG/ML(QUELICIN) IVP ONE (09:13)
[2020-07-14] MEDS ORDERED: ETOMIDATE 20 MG/ 10 ML VIAL (AMIDATE) IVP ONE (09:13)
[2020-07-14 09:22] LABS: INR 1.3 (0.80-1.20); PROTHROMBIN TIME 13.7 SECS (9.5-12.5)
[2020-07-14 09:42] LABS: POTASSIUM 5.9 mmol/L (3.5-5.1)
[2020-07-14 09:43] LABS: CALCIUM 6.5 mg/dL (8.4-11.0)
[2020-07-14 09:45] LABS: ERYTHROCYTE SEDIMENTATION RATE 13 MM/HR (0-15)
[2020-07-14] MEDS: PANTOPRAZOLE SODIUM 40 MG/VIAL (PROTONIX) IVP SCH (09:47)
[2020-07-14] MEDS: CHOLECALCIFEROL (VITAMIN D3) 5,000 UNIT TABLET NG SCH (09:48)
[2020-07-14] MEDS: ASCORBIC ACID 500 MG TABLET NG SCH (09:48)
[2020-07-14] MEDS: lisinopriL 5 MG TABLET NG SCH ×2 (09:49→22:09)
[2020-07-14] MEDS: glipiZIDE XL 5 MG TAB ( GLUCOTROL XL) PO SCH (09:50)
[2020-07-14] MEDS: ENOXAPARIN SODIUM 120 MG/0.8 ML SYRINGE SUBCUT SCH ×2 (09:51→22:10)
[2020-07-14] MEDS: metFORMIN HCL 500 MG TABLET NG SCH ×2 (11:19→17:54)
[2020-07-14] MEDS: NOREPINEPHRINE BITARTRATE 32 MG in D5W 218 ML IV PRN (11:21)
[2020-07-14 12:06] LABS: C-REACTIVE PROTEIN QUANT 20.8 mg/dL (0-0.5)
[2020-07-14 12:54] LABS: BAND % (MANUAL) 3 % (0-6); BASOPHILS % (MANUAL) 0 % (0-2); EOSINOPHILS % (MANUAL) 0 % (0-7); LYMPHOCYTES % (MANUAL) 5 % (20-46); MONOCYTES % (MANUAL) 3 % (0-11)
[2020-07-14] MEDS ORDERED: SODIUM POLYSTYRENE SULFONATE 15 GM/60 ML UDBTL GT ONE (20:18)
[2020-07-14] MEDS ORDERED: ENOXAPARIN SODIUM 100 MG/ML SYRINGE ONE (21:47)
[2020-07-14] MEDS ORDERED: ENOXAPARIN SODIUM 30 MG/0.3 ML SYRINGE ONE (21:48)
[2020-07-14] MEDS: INSULIN GLARGINE 100 UNITS/ML 10 ML VIAL SUBCUT SCH (22:13)
[2020-07-14] MEDS: MORPHINE I.V. DRIP 100 ML IV PRN (22:45)
[2020-07-15] VITALS (29 sets, daily range): BP systolic 68–135
[2020-07-15] MEDS: NACL 0.9% 1,000 ML IV SCH ×3 (05:30→21:30)
[2020-07-15] MEDS: HYDROCORTISONE SOD SUCC 100 MG/2 ML VIAL IVP SCH ×3 (06:19→22:21)
[2020-07-15] MEDS: PIPERACILLIN/TAZO 4.5GM/DEX-IS 100 ML IV SCH ×3 (06:19→22:21)
[2020-07-15] MEDS: INSULIN REGULAR, HUMAN 100 UNITS/ML, 10 ML VIAL (humuLIN R) SUBCUT PRN ×4 (07:03→21:40)
[2020-07-15 07:45] LABS: BASOPHILS # (AUTO) 0.1 K/uL (0.0-0.2); BASOPHILS % (AUTO) 0.7 % (0.0-2.0); EOSINOPHILS % (AUTO) 0.1 % (0.0-4.0); HEMATOCRIT 39.5 % (36-54); HEMOGLOBIN 12.9 g/dL (14.0-18.0); LYMPHOCYTES # (AUTO) 0.7 K/uL (1.0-5.5); LYMPHOCYTES % (AUTO) 3.8 % (20.5-51.5); MEAN CORPUSCULAR HEMOGLOBIN 31 pg (27-31); MEAN CORPUSCULAR HGB CONC 33 % (32-36); MEAN CORPUSCULAR VOLUME 94 fL (79.0-98.0); MONOCYTES # (AUTO) 0.5 K/uL (0.0-1.0); MONOCYTES % (AUTO) 2.5 % (1.7-9.3); NEUTROPHILS # (AUTO) 16.8 K/uL (1.8-7.7); NEUTROPHILS % (AUTO) 92.9 % (40.0-70.0); PLATELET COUNT (AUTO) 131 K/uL (130-430); RED CELL DISTRIBUTION WIDTH 13.2 % (9.0-15.0); WHITE BLOOD COUNT (AUTO) 18.1 K/uL (4.8-10.8)
[2020-07-15 08:17] LABS: INR 1.5 (0.80-1.20); PROTHROMBIN TIME 14.8 SECS (9.5-12.5)
[2020-07-15] MEDS: ASCORBIC ACID 500 MG TABLET NG SCH (08:22)
[2020-07-15] MEDS: PANTOPRAZOLE SODIUM 40 MG/VIAL (PROTONIX) IVP SCH (08:22)
[2020-07-15] MEDS: glipiZIDE XL 5 MG TAB ( GLUCOTROL XL) PO SCH (08:22)
[2020-07-15] MEDS: metFORMIN HCL 500 MG TABLET NG SCH (08:22)
[2020-07-15] MEDS: CHOLECALCIFEROL (VITAMIN D3) 5,000 UNIT TABLET NG SCH (08:22)
[2020-07-15 08:24] LABS: ALBUMIN 1.9 g/dL (3.4-4.8); BILIRUBIN,DIRECT 0.3 mg/dL (0.0-0.3); CREATININE 6.06 mg/dL (0.55-1.30); PHOSPHORUS 7.9 mg/dL (2.7-4.5); TOTAL BILIRUBIN 0.7 mg/dL (0.0-1.0)
[2020-07-15] MEDS: lisinopriL 5 MG TABLET NG SCH (08:24)
[2020-07-15] MEDS: VASOPRESSIN 100 UNITS in D5W 45 ML IV PRN (08:25)
[2020-07-15] MEDS: PHENYLEPHRINE HCL 100 MG in NS 240 ML IV PRN (08:26)
[2020-07-15 08:31] LABS: ERYTHROCYTE SEDIMENTATION RATE 48 MM/HR (0-15)
[2020-07-15] MEDS: ENOXAPARIN SODIUM 120 MG/0.8 ML SYRINGE SUBCUT SCH (08:42)
[2020-07-15 09:22] LABS: CALCIUM 6.5 mg/dL (8.4-11.0); POTASSIUM 5.9 mmol/L (3.5-5.1)
[2020-07-15 09:57] LABS: C-REACTIVE PROTEIN QUANT 22.7 mg/dL (0-0.5)
[2020-07-15] MEDS ORDERED: NOREPINEPHRINE 4 MG/4 ML VIAL IV ONE (14:00)
[2020-07-15] MEDS: NOREPINEPHRINE BITARTRATE 32 MG in D5W 218 ML IV PRN (15:48)
[2020-07-15] MEDS ORDERED: HEPARIN SODIUM,PORCINE 5,000 UNITS/ML VIAL ONE (17:42)
[2020-07-15] MEDS: MIDAZOLAM HCL IN 0.9 % NACL/PF 50 ML IV PRN (20:18)
[2020-07-15] MEDS: INSULIN GLARGINE 100 UNITS/ML 10 ML VIAL SUBCUT SCH (21:44)
[2020-07-16] VITALS (28 sets, daily range): BP systolic 92–136
[2020-07-16] MEDS: NACL 0.9% 1,000 ML IV SCH ×3 (06:00→21:20)
[2020-07-16] MEDS: PIPERACILLIN/TAZO 4.5GM/DEX-IS 100 ML IV SCH ×3 (06:01→21:43)
[2020-07-16] MEDS: MORPHINE I.V. DRIP 100 ML IV PRN (06:02)
[2020-07-16] MEDS: HYDROCORTISONE SOD SUCC 100 MG/2 ML VIAL IVP SCH ×3 (06:03→21:44)
[2020-07-16] MEDS: INSULIN REGULAR, HUMAN 100 UNITS/ML, 10 ML VIAL (humuLIN R) SUBCUT PRN ×3 (06:52→21:33)
[2020-07-16] MEDS: ASCORBIC ACID 500 MG TABLET NG SCH (09:00)
[2020-07-16] MEDS ORDERED: ENOXAPARIN SODIUM 120 MG/0.8 ML SYRINGE SUBCUT SCH (09:00)
[2020-07-16] MEDS: CHOLECALCIFEROL (VITAMIN D3) 5,000 UNIT TABLET NG SCH (09:00)
[2020-07-16] MEDS: PANTOPRAZOLE SODIUM 40 MG/VIAL (PROTONIX) IVP SCH (09:13)
[2020-07-16] MEDS: MIDAZOLAM HCL IN 0.9 % NACL/PF 50 ML IV PRN (10:48)
[2020-07-16 17:43] LABS: BASOPHILS # (AUTO) 0.2 K/uL (0.0-0.2); BASOPHILS % (AUTO) 1.3 % (0.0-2.0); EOSINOPHILS % (AUTO) 0.2 % (0.0-4.0); HEMATOCRIT 37.5 % (36-54); HEMOGLOBIN 12.4 g/dL (14.0-18.0); LYMPHOCYTES # (AUTO) 0.5 K/uL (1.0-5.5); LYMPHOCYTES % (AUTO) 3.2 % (20.5-51.5); MEAN CORPUSCULAR HEMOGLOBIN 31 pg (27-31); MEAN CORPUSCULAR HGB CONC 33 % (32-36); MEAN CORPUSCULAR VOLUME 93 fL (79.0-98.0); MONOCYTES # (AUTO) 0.4 K/uL (0.0-1.0); MONOCYTES % (AUTO) 2.3 % (1.7-9.3); NEUTROPHILS # (AUTO) 14.5 K/uL (1.8-7.7); RED BLOOD CELL COUNT(AUTO) 4.02 MIL/uL (4.2-6.2); RED CELL DISTRIBUTION WIDTH 13.5 % (9.0-15.0); WHITE BLOOD COUNT (AUTO) 15.6 K/uL (4.8-10.8)
[2020-07-16 17:54] LABS: C-REACTIVE PROTEIN QUANT 8.5 mg/dL (0-0.5); PHOSPHORUS 8.7 mg/dL (2.7-4.5)
[2020-07-16 18:01] LABS: POTASSIUM 6.1 mmol/L (3.5-5.1)
[2020-07-16 18:02] LABS: CALCIUM 6.4 mg/dL (8.4-11.0); CREATININE 8.4 mg/dL (0.55-1.30)
[2020-07-16 18:08] LABS: PLATELET COUNT (AUTO) 188 K/uL (130-430)
[2020-07-16] MEDS ORDERED: SODIUM BICARBONATE 8.4% JECT 50 MEQ/50 ML SYRINGE IVP ONE (18:15)
[2020-07-16] MEDS ORDERED: CALCIUM GLUCONATE 1 GM in NS 100 ML IV ONE (18:15)
[2020-07-16 18:31] LABS: ERYTHROCYTE SEDIMENTATION RATE 38 MM/HR (0-15)
[2020-07-16] MEDS ORDERED: HEPARIN SODIUM,PORCINE 5,000 UNITS/ML VIAL ONE ×2 (20:43→20:44)
[2020-07-16] MEDS: INSULIN GLARGINE 100 UNITS/ML 10 ML VIAL SUBCUT SCH (21:34)
[2020-07-17] VITALS (24 sets, daily range): BP systolic 108–171
[2020-07-17] MEDS ORDERED: PHENYLEPHRINE HCL 10 MG/ML VIAL (NEOSYNEPHRINE) ONE (00:25)
[2020-07-17] MEDS: PHENYLEPHRINE HCL 100 MG in NS 240 ML IV PRN (00:54)
[2020-07-17] MEDS: MIDAZOLAM HCL IN 0.9 % NACL/PF 50 ML IV PRN ×2 (03:26→17:06)
[2020-07-17] MEDS: NACL 0.9% 1,000 ML IV SCH ×2 (05:30→12:53)
[2020-07-17] MEDS: PIPERACILLIN/TAZO 4.5GM/DEX-IS 100 ML IV SCH ×3 (05:46→22:34)
[2020-07-17] MEDS: HYDROCORTISONE SOD SUCC 100 MG/2 ML VIAL IVP SCH ×3 (05:46→22:35)
[2020-07-17 06:35] LABS: HEMATOCRIT 34.9 % (36-54); HEMOGLOBIN 11.7 g/dL (14.0-18.0); LYMPHOCYTES # (AUTO) 0.4 K/uL (1.0-5.5); MEAN CORPUSCULAR HEMOGLOBIN 31 pg (27-31); MEAN CORPUSCULAR HGB CONC 34 % (32-36); MEAN CORPUSCULAR VOLUME 92 fL (79.0-98.0); MONOCYTES # (AUTO) 0.5 K/uL (0.0-1.0); MONOCYTES % (AUTO) 4.2 % (1.7-9.3); NEUTROPHILS # (AUTO) 11.7 K/uL (1.8-7.7); PLATELET COUNT (AUTO) 86 K/uL (130-430); RED CELL DISTRIBUTION WIDTH 12.9 % (9.0-15.0); WHITE BLOOD COUNT (AUTO) 12.6 K/uL (4.8-10.8)
[2020-07-17] MEDS: INSULIN REGULAR, HUMAN 100 UNITS/ML, 10 ML VIAL (humuLIN R) SUBCUT PRN ×3 (06:43→17:19)
[2020-07-17 06:56] LABS: CREATININE 7.15 mg/dL (0.55-1.30); POTASSIUM 4.6 mmol/L (3.5-5.1)
[2020-07-17 07:01] LABS: CALCIUM 6.4 mg/dL (8.4-11.0)
[2020-07-17 07:26] LABS: C-REACTIVE PROTEIN QUANT 6.1 mg/dL (0-0.5)
[2020-07-17] MEDS ORDERED: *TPN PER PHARMACY XX PRN (08:30)
[2020-07-17] MEDS: PANTOPRAZOLE SODIUM 40 MG/VIAL (PROTONIX) IVP SCH (08:46)
[2020-07-17] MEDS: ASCORBIC ACID 500 MG TABLET NG SCH (08:46)
[2020-07-17] MEDS: CHOLECALCIFEROL (VITAMIN D3) 5,000 UNIT TABLET NG SCH (08:46)
[2020-07-17] MEDS ORDERED: HEPARIN SODIUM,PORCINE 5,000 UNITS/ML VIAL SUBCUT SCH (09:00)
[2020-07-17 10:18] LABS: PHOSPHORUS 7.5 mg/dL (2.7-4.5)
[2020-07-17 10:24] LABS: ERYTHROCYTE SEDIMENTATION RATE 50 MM/HR (0-15)
[2020-07-17] MEDS: MORPHINE I.V. DRIP 100 ML IV PRN (12:54)
[2020-07-17 13:44] LABS: NEUTROPHILS % (AUTO) 92.8 % (40.0-70.0)
[2020-07-17] MEDS ORDERED: CALCIUM GLUCONATE 1 GM in NS 100 ML IV ONE (19:45)
[2020-07-17] MEDS ORDERED: CALCIUM GLUCONATE 1 GM/10 ML VIAL ONE (20:19)
[2020-07-17] MEDS: INSULIN GLARGINE 100 UNITS/ML 10 ML VIAL SUBCUT SCH (20:59)
[2020-07-17] MEDS ORDERED: TPN CENTRAL IV SCH ×8 (21:00)
[2020-07-17] MEDS ORDERED: [UNRECOGNIZED DRUG - OTHER] IV SCH ×8 (21:00)
[2020-07-17] MEDS ORDERED: POTASSIUM CHLORIDE IV SCH ×8 (21:00)
[2020-07-17] MEDS ORDERED: SODIUM ACETATE IV SCH ×8 (21:00)
[2020-07-18] VITALS (24 sets, daily range): BP systolic 72–141
[2020-07-18] MEDS: NACL 0.9% 1,000 ML IV SCH ×2 (00:48→12:16)
[2020-07-18] MEDS: INSULIN REGULAR, HUMAN 100 UNITS/ML, 10 ML VIAL (humuLIN R) SUBCUT PRN ×5 (00:58→23:40)
[2020-07-18] MEDS: MIDAZOLAM HCL IN 0.9 % NACL/PF 50 ML IV PRN ×2 (05:20→19:12)
[2020-07-18] MEDS: PIPERACILLIN/TAZO 4.5GM/DEX-IS 100 ML IV SCH ×3 (05:46→21:04)
[2020-07-18] MEDS: HYDROCORTISONE SOD SUCC 100 MG/2 ML VIAL IVP SCH ×3 (05:46→21:03)
[2020-07-18] MEDS: PANTOPRAZOLE SODIUM 40 MG/VIAL (PROTONIX) IVP SCH (09:39)
[2020-07-18] MEDS: CHOLECALCIFEROL (VITAMIN D3) 5,000 UNIT TABLET NG SCH (09:39)
[2020-07-18] MEDS: ASCORBIC ACID 500 MG TABLET NG SCH (09:39)
[2020-07-18 11:05] LABS: BASOPHILS % (AUTO) 0.2 % (0.0-2.0); HEMATOCRIT 32.6 % (36-54); HEMOGLOBIN 10.9 g/dL (14.0-18.0); LYMPHOCYTES # (AUTO) 0.3 K/uL (1.0-5.5); LYMPHOCYTES % (AUTO) 2.5 % (20.5-51.5); MEAN CORPUSCULAR HEMOGLOBIN 31 pg (27-31); MEAN CORPUSCULAR HGB CONC 34 % (32-36); MEAN CORPUSCULAR VOLUME 92 fL (79.0-98.0); MONOCYTES # (AUTO) 0.3 K/uL (0.0-1.0); MONOCYTES % (AUTO) 2.8 % (1.7-9.3); NEUTROPHILS % (AUTO) 94.5 % (40.0-70.0); PLATELET COUNT (AUTO) 81 K/uL (130-430); RED BLOOD CELL COUNT(AUTO) 3.53 MIL/uL (4.2-6.2); RED CELL DISTRIBUTION WIDTH 13.4 % (9.0-15.0); WHITE BLOOD COUNT (AUTO) 10.6 K/uL (4.8-10.8)
[2020-07-18 11:46] LABS: ALBUMIN 1.3 g/dL (3.4-4.8); PHOSPHORUS 7.6 mg/dL (2.7-4.5); POTASSIUM 4.2 mmol/L (3.5-5.1); TOTAL BILIRUBIN 0.4 mg/dL (0.0-1.0)
[2020-07-18 12:00] LABS: CALCIUM 5.7 mg/dL (8.4-11.0); CREATININE 7.89 mg/dL (0.55-1.30)
[2020-07-18 12:12] LABS: C-REACTIVE PROTEIN QUANT 3.9 mg/dL (0-0.5)
[2020-07-18 12:45] LABS: ERYTHROCYTE SEDIMENTATION RATE 39 MM/HR (0-15)
[2020-07-18] MEDS ORDERED: HEPARIN SODIUM, PORCINE 10,000 UNITS/ 10 ML VIAL MC ONE (13:30)
[2020-07-18] MEDS ORDERED: HEPARIN SODIUM,PORCINE 5,000 UNITS/ML VIAL ONE (13:53)
[2020-07-18] MEDS: PHENYLEPHRINE HCL 100 MG in NS 240 ML IV PRN (14:38)
[2020-07-18] MEDS ORDERED: CALCIUM GLUCONATE 2 GM in NS 100 ML IV ONE (15:00)
[2020-07-18] MEDS ORDERED: TPN CENTRAL IV SCH ×9 (21:00)
[2020-07-18] MEDS ORDERED: [UNRECOGNIZED DRUG - OTHER] IV SCH ×9 (21:00)
[2020-07-18] MEDS ORDERED: POTASSIUM CHLORIDE IV SCH ×9 (21:00)
[2020-07-18] MEDS ORDERED: SODIUM ACETATE IV SCH ×9 (21:00)
[2020-07-18] MEDS: INSULIN GLARGINE 100 UNITS/ML 10 ML VIAL SUBCUT SCH (21:05)
[2020-07-18] MEDS: MORPHINE I.V. DRIP 100 ML IV PRN (22:08)
[2020-07-19] VITALS (30 sets, daily range): BP systolic 91–116
[2020-07-19] MEDS: HYDROCORTISONE SOD SUCC 100 MG/2 ML VIAL IVP SCH ×3 (06:03→22:00)
[2020-07-19] MEDS: INSULIN REGULAR, HUMAN 100 UNITS/ML, 10 ML VIAL (humuLIN R) SUBCUT PRN ×4 (06:06→23:36)
[2020-07-19 07:47] LABS: ALBUMIN 1.5 g/dL (3.4-4.8); POTASSIUM 4.2 mmol/L (3.5-5.1); TOTAL BILIRUBIN 0.4 mg/dL (0.0-1.0)
[2020-07-19 07:55] LABS: BASOPHILS % (AUTO) 0.3 % (0.0-2.0); HEMATOCRIT 34.6 % (36-54); HEMOGLOBIN 11.4 g/dL (14.0-18.0); LYMPHOCYTES # (AUTO) 0.2 K/uL (1.0-5.5); LYMPHOCYTES % (AUTO) 1.7 % (20.5-51.5); MEAN CORPUSCULAR HEMOGLOBIN 31 pg (27-31); MEAN CORPUSCULAR HGB CONC 33 % (32-36); MEAN CORPUSCULAR VOLUME 93 fL (79.0-98.0); MONOCYTES # (AUTO) 0.3 K/uL (0.0-1.0); MONOCYTES % (AUTO) 2.2 % (1.7-9.3); NEUTROPHILS # (AUTO) 12.1 K/uL (1.8-7.7); NEUTROPHILS % (AUTO) 95.8 % (40.0-70.0); PLATELET COUNT (AUTO) 85 K/uL (130-430); RED BLOOD CELL COUNT(AUTO) 3.72 MIL/uL (4.2-6.2); RED CELL DISTRIBUTION WIDTH 13.3 % (9.0-15.0); WHITE BLOOD COUNT (AUTO) 12.6 K/uL (4.8-10.8)
[2020-07-19 07:57] LABS: CALCIUM 6.8 mg/dL (8.4-11.0); CREATININE 7.89 mg/dL (0.55-1.30)
[2020-07-19 08:10] LABS: C-REACTIVE PROTEIN QUANT 4.4 mg/dL (0-0.5)
[2020-07-19] MEDS: CHOLECALCIFEROL (VITAMIN D3) 5,000 UNIT TABLET NG SCH (08:49)
[2020-07-19] MEDS: ASCORBIC ACID 500 MG TABLET NG SCH (08:49)
[2020-07-19] MEDS: PANTOPRAZOLE SODIUM 40 MG/VIAL (PROTONIX) IVP SCH (08:49)
[2020-07-19] MEDS: MIDAZOLAM HCL IN 0.9 % NACL/PF 50 ML IV PRN (10:47)
[2020-07-19 10:58] LABS: ERYTHROCYTE SEDIMENTATION RATE 49 MM/HR (0-15)
[2020-07-19] MEDS: HEPARIN SODIUM,PORCINE 5,000 UNITS/ML VIAL SUBCUT SCH ×2 (13:04→22:42)
[2020-07-19] MEDS ORDERED: CALCIUM GLUCONATE 1 GM in NS 100 ML IV ONE (13:30)
[2020-07-19] MEDS ORDERED: CALCIUM GLUCONATE 1 GM/10 ML VIAL ONE (15:24)
[2020-07-19] MEDS: NACL 0.9% 1,000 ML IV SCH (18:02)
[2020-07-19] MEDS ORDERED: SODIUM ACETATE IV SCH ×10 (21:00)
[2020-07-19] MEDS ORDERED: [UNRECOGNIZED DRUG - OTHER] IV SCH ×10 (21:00)
[2020-07-19] MEDS ORDERED: POTASSIUM CHLORIDE IV SCH ×10 (21:00)
[2020-07-19] MEDS ORDERED: TPN CENTRAL IV SCH ×10 (21:00)
[2020-07-19] MEDS: INSULIN GLARGINE 100 UNITS/ML 10 ML VIAL SUBCUT SCH (21:00)
[2020-07-19] MEDS ORDERED: HEPARIN SODIUM,PORCINE 5,000 UNITS/ML VIAL ONE (22:07)
[2020-07-19] MEDS ORDERED: HYDROCORTISONE SOD SUCC 100 MG/2 ML VIAL ONE (22:50)
[2020-07-20] VITALS (30 sets, daily range): BP systolic 86–108
[2020-07-20] MEDS: MORPHINE I.V. DRIP 100 ML IV PRN (03:13)
[2020-07-20] MEDS: PHENYLEPHRINE HCL 100 MG in NS 240 ML IV PRN (03:15)
[2020-07-20 06:45] LABS: BASOPHILS # (AUTO) 0.2 K/uL (0.0-0.2); BASOPHILS % (AUTO) 1.5 % (0.0-2.0); EOSINOPHILS % (AUTO) 0.2 % (0.0-4.0); HEMOGLOBIN 10.9 g/dL (14.0-18.0); LYMPHOCYTES # (AUTO) 0.3 K/uL (1.0-5.5); LYMPHOCYTES % (AUTO) 1.9 % (20.5-51.5); MEAN CORPUSCULAR HEMOGLOBIN 31 pg (27-31); MEAN CORPUSCULAR HGB CONC 33 % (32-36); MEAN CORPUSCULAR VOLUME 94 fL (79.0-98.0); MONOCYTES # (AUTO) 0.5 K/uL (0.0-1.0); NEUTROPHILS % (AUTO) 93.4 % (40.0-70.0); PLATELET COUNT (AUTO) 129 K/uL (130-430); RED BLOOD CELL COUNT(AUTO) 3.52 MIL/uL (4.2-6.2); RED CELL DISTRIBUTION WIDTH 13.5 % (9.0-15.0); WHITE BLOOD COUNT (AUTO) 17.2 K/uL (4.8-10.8)
[2020-07-20 06:51] LABS: POTASSIUM 4.6 mmol/L (3.5-5.1)
[2020-07-20] MEDS: HEPARIN SODIUM,PORCINE 5,000 UNITS/ML VIAL SUBCUT SCH ×3 (07:00→21:26)
[2020-07-20] MEDS: HYDROCORTISONE SOD SUCC 100 MG/2 ML VIAL IVP SCH ×3 (07:06→21:19)
[2020-07-20] MEDS: INSULIN REGULAR, HUMAN 100 UNITS/ML, 10 ML VIAL (humuLIN R) SUBCUT PRN ×3 (07:07→17:30)
[2020-07-20] MEDS ORDERED: HEPARIN SODIUM,PORCINE 5,000 UNITS/ML VIAL ONE ×2 (07:33→17:41)
[2020-07-20 08:05] LABS: CALCIUM 6.8 mg/dL (8.4-11.0); CREATININE 8.67 mg/dL (0.55-1.30)
[2020-07-20 10:23] LABS: C-REACTIVE PROTEIN QUANT 4.8 mg/dL (0-0.5)
[2020-07-20 11:51] LABS: ERYTHROCYTE SEDIMENTATION RATE 25 MM/HR (0-15)
[2020-07-20] MEDS: INSULIN NPH/REGULAR 70-30, 100 UNITS/ML, 10 ML VIAL SUBCUT SCH ×2 (11:59→17:29)
[2020-07-20] MEDS: METOCLOPRAMIDE HCL 10 MG/2 ML VIAL IVP SCH ×2 (12:00→17:23)
[2020-07-20] MEDS: ASCORBIC ACID 500 MG TABLET NG SCH (12:01)
[2020-07-20] MEDS: PANTOPRAZOLE SODIUM 40 MG/VIAL (PROTONIX) IVP SCH (12:01)
[2020-07-20] MEDS: CHOLECALCIFEROL (VITAMIN D3) 5,000 UNIT TABLET NG SCH (12:01)
[2020-07-20] MEDS: ALBUTEROL MDI INHALATION 8 GM INH INH PRN (12:02)
[2020-07-20] MEDS ORDERED: HYDROCORTISONE SOD SUCC 100 MG/2 ML VIAL ONE (13:29)
[2020-07-20] MEDS: NACL 0.9% 1,000 ML IV SCH (13:45)
[2020-07-20] MEDS: MIDAZOLAM HCL IN 0.9 % NACL/PF 50 ML IV PRN (14:03)
[2020-07-20] MEDS ORDERED: SODIUM ACETATE IV SCH ×9 (21:00)
[2020-07-20] MEDS ORDERED: [UNRECOGNIZED DRUG - OTHER] IV SCH ×9 (21:00)
[2020-07-20] MEDS ORDERED: TPN CENTRAL IV SCH ×9 (21:00)
[2020-07-20] MEDS ORDERED: POTASSIUM CHLORIDE IV SCH ×9 (21:00)
[2020-07-20] MEDS: INSULIN GLARGINE 100 UNITS/ML 10 ML VIAL SUBCUT SCH (21:26)
[2020-07-21] VITALS (31 sets, daily range): BP systolic 81–173
[2020-07-21] MEDS: INSULIN REGULAR, HUMAN 100 UNITS/ML, 10 ML VIAL (humuLIN R) SUBCUT PRN ×5 (00:42→23:13)
[2020-07-21] MEDS ORDERED: PHENYLEPHRINE HCL 10 MG/ML VIAL (NEOSYNEPHRINE) ONE ×2 (03:46→21:40)
[2020-07-21] MEDS: PHENYLEPHRINE HCL 100 MG in NS 240 ML IV PRN ×3 (03:52→22:13)
[2020-07-21] MEDS: HYDROCORTISONE SOD SUCC 100 MG/2 ML VIAL IVP SCH ×3 (05:49→22:37)
[2020-07-21] MEDS: METOCLOPRAMIDE HCL 10 MG/2 ML VIAL IVP SCH ×3 (05:49→18:05)
[2020-07-21] MEDS: HEPARIN SODIUM,PORCINE 5,000 UNITS/ML VIAL SUBCUT SCH ×3 (05:52→22:49)
[2020-07-21] MEDS: INSULIN NPH/REGULAR 70-30, 100 UNITS/ML, 10 ML VIAL SUBCUT SCH ×2 (05:52→18:01)
[2020-07-21 07:14] LABS: BASOPHILS # (AUTO) 0.1 K/uL (0.0-0.2); BASOPHILS % (AUTO) 0.5 % (0.0-2.0); EOSINOPHILS % (AUTO) 0.1 % (0.0-4.0); HEMATOCRIT 34.3 % (36-54); HEMOGLOBIN 11.4 g/dL (14.0-18.0); LYMPHOCYTES # (AUTO) 0.3 K/uL (1.0-5.5); LYMPHOCYTES % (AUTO) 1.3 % (20.5-51.5); MEAN CORPUSCULAR HEMOGLOBIN 31 pg (27-31); MEAN CORPUSCULAR HGB CONC 33 % (32-36); MEAN CORPUSCULAR VOLUME 92 fL (79.0-98.0); MONOCYTES # (AUTO) 0.5 K/uL (0.0-1.0); MONOCYTES % (AUTO) 2.4 % (1.7-9.3); NEUTROPHILS % (AUTO) 95.7 % (40.0-70.0); PLATELET COUNT (AUTO) 167 K/uL (130-430); RED BLOOD CELL COUNT(AUTO) 3.71 MIL/uL (4.2-6.2); RED CELL DISTRIBUTION WIDTH 13.3 % (9.0-15.0)
[2020-07-21 08:25] LABS: PHOSPHORUS 8.1 mg/dL (2.7-4.5); POTASSIUM 4.1 mmol/L (3.5-5.1)
[2020-07-21] MEDS: PANTOPRAZOLE SODIUM 40 MG/VIAL (PROTONIX) IVP SCH (08:39)
[2020-07-21] MEDS: CHOLECALCIFEROL (VITAMIN D3) 5,000 UNIT TABLET NG SCH (08:40)
[2020-07-21] MEDS: ASCORBIC ACID 500 MG TABLET NG SCH (08:40)
[2020-07-21] MEDS: ALBUTEROL MDI INHALATION 8 GM INH INH PRN ×3 (08:59→16:54)
[2020-07-21] MEDS: NACL 0.9% 1,000 ML IV SCH (09:08)
[2020-07-21 09:16] LABS: CREATININE 7.59 mg/dL (0.55-1.30)
[2020-07-21] MEDS ORDERED: TPN CENTRAL IV SCH ×10 (21:00)
[2020-07-21] MEDS ORDERED: SODIUM ACETATE IV SCH ×10 (21:00)
[2020-07-21] MEDS ORDERED: [UNRECOGNIZED DRUG - OTHER] IV SCH ×10 (21:00)
[2020-07-21] MEDS ORDERED: POTASSIUM CHLORIDE IV SCH ×10 (21:00)
[2020-07-21] MEDS: MIDAZOLAM HCL IN 0.9 % NACL/PF 50 ML IV PRN (22:12)
[2020-07-21] MEDS: INSULIN GLARGINE 100 UNITS/ML 10 ML VIAL SUBCUT SCH (22:46)
[2020-07-22] VITALS (27 sets, daily range): BP systolic 98–175
[2020-07-22] MEDS: PIPERACILLIN/TAZO 2.25G/DEX-IS 50 ML IV SCH ×3 (05:44→21:44)
[2020-07-22] MEDS: HYDROCORTISONE SOD SUCC 100 MG/2 ML VIAL IVP SCH ×3 (05:49→21:44)
[2020-07-22] MEDS: HEPARIN SODIUM,PORCINE 5,000 UNITS/ML VIAL SUBCUT SCH ×3 (05:52→21:50)
[2020-07-22] MEDS: METOCLOPRAMIDE HCL 10 MG/2 ML VIAL IVP SCH ×3 (06:00→17:52)
[2020-07-22] MEDS: MORPHINE I.V. DRIP 100 ML IV PRN (06:19)
[2020-07-22] MEDS: INSULIN NPH/REGULAR 70-30, 100 UNITS/ML, 10 ML VIAL SUBCUT SCH ×2 (06:20→17:54)
[2020-07-22] MEDS: NACL 0.9% 1,000 ML IV SCH (06:21)
[2020-07-22] MEDS: INSULIN REGULAR, HUMAN 100 UNITS/ML, 10 ML VIAL (humuLIN R) SUBCUT PRN ×2 (06:43→11:30)
[2020-07-22 07:04] LABS: BASOPHILS % (AUTO) 0.3 % (0.0-2.0); EOSINOPHILS % (AUTO) 0.1 % (0.0-4.0); HEMATOCRIT 30.5 % (36-54); HEMOGLOBIN 10.1 g/dL (14.0-18.0); LYMPHOCYTES # (AUTO) 0.4 K/uL (1.0-5.5); LYMPHOCYTES % (AUTO) 2.6 % (20.5-51.5); MEAN CORPUSCULAR HEMOGLOBIN 31 pg (27-31); MEAN CORPUSCULAR HGB CONC 33 % (32-36); MEAN CORPUSCULAR VOLUME 92 fL (79.0-98.0); MONOCYTES # (AUTO) 0.8 K/uL (0.0-1.0); MONOCYTES % (AUTO) 5.2 % (1.7-9.3); NEUTROPHILS # (AUTO) 13.5 K/uL (1.8-7.7); NEUTROPHILS % (AUTO) 91.8 % (40.0-70.0); PLATELET COUNT (AUTO) 150 K/uL (130-430); RED BLOOD CELL COUNT(AUTO) 3.31 MIL/uL (4.2-6.2); RED CELL DISTRIBUTION WIDTH 13.6 % (9.0-15.0); WHITE BLOOD COUNT (AUTO) 14.7 K/uL (4.8-10.8)
[2020-07-22 07:31] LABS: ALBUMIN 1.4 g/dL (3.4-4.8); CREATININE 7.26 mg/dL (0.55-1.30); PHOSPHORUS 6.4 mg/dL (2.7-4.5); POTASSIUM 3.6 mmol/L (3.5-5.1); TOTAL BILIRUBIN 0.5 mg/dL (0.0-1.0)
[2020-07-22] MEDS: ASCORBIC ACID 500 MG TABLET NG SCH (08:52)
[2020-07-22] MEDS: CHOLECALCIFEROL (VITAMIN D3) 5,000 UNIT TABLET NG SCH (08:52)
[2020-07-22] MEDS: PANTOPRAZOLE SODIUM 40 MG/VIAL (PROTONIX) IVP SCH (08:52)
[2020-07-22] MEDS: PHENYLEPHRINE HCL 100 MG in NS 240 ML IV PRN (11:10)
[2020-07-22] MEDS: INSULIN GLARGINE 100 UNITS/ML 10 ML VIAL SUBCUT SCH (20:51)
[2020-07-22] MEDS: MIDAZOLAM HCL IN 0.9 % NACL/PF 50 ML IV PRN (21:58)
[2020-07-22] MEDS ORDERED: NOREPINEPHRINE 4 MG/4 ML VIAL IV ONE (23:37)
[2020-07-22] MEDS: NOREPINEPHRINE BITARTRATE 32 MG in D5W 218 ML IV PRN (23:53)
[2020-07-23] VITALS (31 sets, daily range): BP systolic 85–158
[2020-07-23] MEDS: PIPERACILLIN/TAZO 2.25G/DEX-IS 50 ML IV SCH ×3 (05:33→22:36)
[2020-07-23] MEDS: HYDROCORTISONE SOD SUCC 100 MG/2 ML VIAL IVP SCH (05:34)
[2020-07-23] MEDS: HEPARIN SODIUM,PORCINE 5,000 UNITS/ML VIAL SUBCUT SCH ×3 (05:53→22:00)
[2020-07-23] MEDS: INSULIN NPH/REGULAR 70-30, 100 UNITS/ML, 10 ML VIAL SUBCUT SCH ×2 (06:19→17:08)
[2020-07-23] MEDS: METOCLOPRAMIDE HCL 10 MG/2 ML VIAL IVP SCH ×3 (06:26→17:08)
[2020-07-23 07:02] LABS: BASOPHILS # (AUTO) 0.1 K/uL (0.0-0.2); BASOPHILS % (AUTO) 0.7 % (0.0-2.0); EOSINOPHILS # (AUTO) 0.2 K/uL (0.0-0.4); EOSINOPHILS % (AUTO) 1.4 % (0.0-4.0); HEMATOCRIT 29.9 % (36-54); HEMOGLOBIN 10.1 g/dL (14.0-18.0); LYMPHOCYTES # (AUTO) 0.7 K/uL (1.0-5.5); LYMPHOCYTES % (AUTO) 6.2 % (20.5-51.5); MEAN CORPUSCULAR HEMOGLOBIN 31 pg (27-31); MEAN CORPUSCULAR HGB CONC 34 % (32-36); MEAN CORPUSCULAR VOLUME 92 fL (79.0-98.0); MONOCYTES # (AUTO) 0.6 K/uL (0.0-1.0); MONOCYTES % (AUTO) 4.8 % (1.7-9.3); NEUTROPHILS # (AUTO) 10.2 K/uL (1.8-7.7); NEUTROPHILS % (AUTO) 86.9 % (40.0-70.0); PLATELET COUNT (AUTO) 167 K/uL (130-430); RED BLOOD CELL COUNT(AUTO) 3.26 MIL/uL (4.2-6.2); RED CELL DISTRIBUTION WIDTH 13.3 % (9.0-15.0); WHITE BLOOD COUNT (AUTO) 11.7 K/uL (4.8-10.8)
[2020-07-23 07:34] LABS: CALCIUM 7.4 mg/dL (8.4-11.0)
[2020-07-23 07:40] LABS: CREATININE 8.34 mg/dL (0.55-1.30)
[2020-07-23 08:49] LABS: C-REACTIVE PROTEIN QUANT 15.3 mg/dL (0-0.5)
[2020-07-23] MEDS: ASCORBIC ACID 500 MG TABLET NG SCH (08:52)
[2020-07-23] MEDS: CHOLECALCIFEROL (VITAMIN D3) 5,000 UNIT TABLET NG SCH (08:52)
[2020-07-23] MEDS: PANTOPRAZOLE SODIUM 40 MG/VIAL (PROTONIX) IVP SCH (08:52)
[2020-07-23 09:23] LABS: ERYTHROCYTE SEDIMENTATION RATE 89 MM/HR (0-15)
[2020-07-23] MEDS: MIDAZOLAM HCL IN 0.9 % NACL/PF 50 ML IV PRN (09:26)
[2020-07-23] MEDS: MORPHINE I.V. DRIP 100 ML IV PRN (09:33)
[2020-07-23] MEDS: ALBUTEROL MDI INHALATION 8 GM INH INH PRN (12:06)
[2020-07-23] MEDS ORDERED: NOREPINEPHRINE BITARTRATE 16 MG in NS 234 ML IV PRN (13:30)
[2020-07-23] MEDS: INSULIN GLARGINE 100 UNITS/ML 10 ML VIAL SUBCUT SCH (21:00)
[2020-07-24] VITALS (26 sets, daily range): BP systolic 101–169
[2020-07-24 05:15] LABS: BASOPHILS % (AUTO) 0.2 % (0.0-2.0); EOSINOPHILS # (AUTO) 0.2 K/uL (0.0-0.4); EOSINOPHILS % (AUTO) 2.7 % (0.0-4.0); HEMATOCRIT 27.4 % (36-54); HEMOGLOBIN 9.5 g/dL (14.0-18.0); LYMPHOCYTES # (AUTO) 0.6 K/uL (1.0-5.5); LYMPHOCYTES % (AUTO) 6.9 % (20.5-51.5); MEAN CORPUSCULAR HEMOGLOBIN 31 pg (27-31); MEAN CORPUSCULAR HGB CONC 35 % (32-36); MEAN CORPUSCULAR VOLUME 90 fL (79.0-98.0); MONOCYTES # (AUTO) 0.7 K/uL (0.0-1.0); MONOCYTES % (AUTO) 7.8 % (1.7-9.3); NEUTROPHILS # (AUTO) 7.3 K/uL (1.8-7.7); NEUTROPHILS % (AUTO) 82.4 % (40.0-70.0); PLATELET COUNT (AUTO) 145 K/uL (130-430); RED BLOOD CELL COUNT(AUTO) 3.04 MIL/uL (4.2-6.2); RED CELL DISTRIBUTION WIDTH 13.2 % (9.0-15.0); WHITE BLOOD COUNT (AUTO) 8.9 K/uL (4.8-10.8)
[2020-07-24 05:25] LABS: CALCIUM 7.1 mg/dL (8.4-11.0); POTASSIUM 3.2 mmol/L (3.5-5.1)
[2020-07-24 05:40] LABS: CREATININE 7.47 mg/dL (0.55-1.30)
[2020-07-24] MEDS: PIPERACILLIN/TAZO 2.25G/DEX-IS 50 ML IV SCH ×2 (06:47→14:36)
[2020-07-24] MEDS: HEPARIN SODIUM,PORCINE 5,000 UNITS/ML VIAL SUBCUT SCH ×2 (06:47→14:34)
[2020-07-24] MEDS: INSULIN NPH/REGULAR 70-30, 100 UNITS/ML, 10 ML VIAL SUBCUT SCH ×2 (07:00→17:00)
[2020-07-24] MEDS: METOCLOPRAMIDE HCL 10 MG/2 ML VIAL IVP SCH ×3 (07:18→18:30)
[2020-07-24 08:01] LABS: ERYTHROCYTE SEDIMENTATION RATE 98 MM/HR (0-15)
[2020-07-24 08:16] LABS: C-REACTIVE PROTEIN QUANT 10.4 mg/dL (0-0.5)
[2020-07-24] MEDS: PANTOPRAZOLE SODIUM 40 MG/VIAL (PROTONIX) IVP SCH (14:32)
[2020-07-24] MEDS: ASCORBIC ACID 500 MG TABLET NG SCH (14:35)
[2020-07-24] MEDS: CHOLECALCIFEROL (VITAMIN D3) 5,000 UNIT TABLET NG SCH (14:35)
[2020-07-24] MEDS: ALBUTEROL MDI INHALATION 8 GM INH INH PRN ×3 (14:39→22:33)
[2020-07-24] MEDS: INSULIN GLARGINE 100 UNITS/ML 10 ML VIAL SUBCUT SCH (21:00)
[2020-07-24] MEDS: DEXTROSE 50% JECT 50 ML DISP.SYRIN IVP PRN (22:36)
[2020-07-25] VITALS (31 sets, daily range): BP systolic 91–137
[2020-07-25] MEDS: HEPARIN SODIUM,PORCINE 5,000 UNITS/ML VIAL SUBCUT SCH ×4 (00:07→22:54)
[2020-07-25] MEDS: PIPERACILLIN/TAZO 2.25G/DEX-IS 50 ML IV SCH ×3 (00:11→16:00)
[2020-07-25] MEDS ORDERED: DEXTROSE 50% JECT 50 ML DISP.SYRIN ONE (00:32)
[2020-07-25] MEDS: DEXTROSE 50% JECT 50 ML DISP.SYRIN IVP PRN (00:37)
[2020-07-25] MEDS: ALBUTEROL MDI INHALATION 8 GM INH INH PRN ×3 (02:44→23:37)
[2020-07-25] MEDS: INSULIN NPH/REGULAR 70-30, 100 UNITS/ML, 10 ML VIAL SUBCUT SCH ×2 (07:00→17:00)
[2020-07-25] MEDS: METOCLOPRAMIDE HCL 10 MG/2 ML VIAL IVP SCH ×3 (07:05→17:00)
[2020-07-25 09:46] LABS: CALCIUM 7.8 mg/dL (8.4-11.0); POTASSIUM 3.6 mmol/L (3.5-5.1)
[2020-07-25 09:47] LABS: BASOPHILS % (AUTO) 0.1 % (0.0-2.0); EOSINOPHILS # (AUTO) 0.2 K/uL (0.0-0.4); EOSINOPHILS % (AUTO) 1.7 % (0.0-4.0); HEMATOCRIT 26.4 % (36-54); HEMOGLOBIN 9.2 g/dL (14.0-18.0); LYMPHOCYTES # (AUTO) 0.4 K/uL (1.0-5.5); LYMPHOCYTES % (AUTO) 4.3 % (20.5-51.5); MEAN CORPUSCULAR HEMOGLOBIN 32 pg (27-31); MEAN CORPUSCULAR HGB CONC 35 % (32-36); MEAN CORPUSCULAR VOLUME 91 fL (79.0-98.0); MONOCYTES # (AUTO) 0.4 K/uL (0.0-1.0); MONOCYTES % (AUTO) 4.8 % (1.7-9.3); NEUTROPHILS # (AUTO) 8.2 K/uL (1.8-7.7); NEUTROPHILS % (AUTO) 89.1 % (40.0-70.0); PLATELET COUNT (AUTO) 136 K/uL (130-430); RED BLOOD CELL COUNT(AUTO) 2.91 MIL/uL (4.2-6.2); RED CELL DISTRIBUTION WIDTH 13.3 % (9.0-15.0); WHITE BLOOD COUNT (AUTO) 9.2 K/uL (4.8-10.8)
[2020-07-25] MEDS: CHOLECALCIFEROL (VITAMIN D3) 5,000 UNIT TABLET NG SCH (10:02)
[2020-07-25] MEDS: PANTOPRAZOLE SODIUM 40 MG/VIAL (PROTONIX) IVP SCH (10:02)
[2020-07-25] MEDS: ASCORBIC ACID 500 MG TABLET NG SCH (10:05)
[2020-07-25 10:32] LABS: CREATININE 9.01 mg/dL (0.55-1.30)
[2020-07-25 12:40] LABS: ERYTHROCYTE SEDIMENTATION RATE 104 MM/HR (0-15)
[2020-07-25 12:41] LABS: C-REACTIVE PROTEIN QUANT 14.5 mg/dL (0-0.5)
[2020-07-25] MEDS ORDERED: HEPARIN SODIUM,PORCINE 5,000 UNITS/ML VIAL ONE (17:19)
[2020-07-26] VITALS (30 sets, daily range): BP systolic 68–135
[2020-07-26] MEDS: MIDAZOLAM HCL IN 0.9 % NACL/PF 50 ML IV PRN (00:04)
[2020-07-26] MEDS: PIPERACILLIN/TAZO 2.25G/DEX-IS 50 ML IV SCH ×3 (00:05→12:59)
[2020-07-26] MEDS: ALBUTEROL MDI INHALATION 8 GM INH INH PRN ×3 (03:41→22:37)
[2020-07-26] MEDS: METOCLOPRAMIDE HCL 10 MG/2 ML VIAL IVP SCH ×4 (06:40→17:18)
[2020-07-26] MEDS: INSULIN NPH/REGULAR 70-30, 100 UNITS/ML, 10 ML VIAL SUBCUT SCH ×2 (06:49→17:18)
[2020-07-26] MEDS: INSULIN REGULAR, HUMAN 100 UNITS/ML, 10 ML VIAL (humuLIN R) SUBCUT PRN ×3 (06:50→17:47)
[2020-07-26] MEDS: HEPARIN SODIUM,PORCINE 5,000 UNITS/ML VIAL SUBCUT SCH ×2 (06:51→13:01)
[2020-07-26] MEDS: MORPHINE I.V. DRIP 100 ML IV PRN (06:52)
[2020-07-26 07:47] LABS: CALCIUM 7.4 mg/dL (8.4-11.0); POTASSIUM 3.7 mmol/L (3.5-5.1)
[2020-07-26 08:41] LABS: CREATININE 7.52 mg/dL (0.55-1.30)
[2020-07-26 09:03] LABS: BASOPHILS # (AUTO) 0.1 K/uL (0.0-0.2); BASOPHILS % (AUTO) 0.4 % (0.0-2.0); EOSINOPHILS # (AUTO) 0.2 K/uL (0.0-0.4); EOSINOPHILS % (AUTO) 1.5 % (0.0-4.0); HEMATOCRIT 25.5 % (36-54); HEMOGLOBIN 8.7 g/dL (14.0-18.0); LYMPHOCYTES # (AUTO) 0.4 K/uL (1.0-5.5); LYMPHOCYTES % (AUTO) 2.8 % (20.5-51.5); MEAN CORPUSCULAR HEMOGLOBIN 31 pg (27-31); MEAN CORPUSCULAR HGB CONC 34 % (32-36); MEAN CORPUSCULAR VOLUME 91 fL (79.0-98.0); MONOCYTES # (AUTO) 0.5 K/uL (0.0-1.0); MONOCYTES % (AUTO) 3.4 % (1.7-9.3); NEUTROPHILS # (AUTO) 13.4 K/uL (1.8-7.7); NEUTROPHILS % (AUTO) 91.9 % (40.0-70.0); PLATELET COUNT (AUTO) 159 K/uL (130-430); RED BLOOD CELL COUNT(AUTO) 2.82 MIL/uL (4.2-6.2); RED CELL DISTRIBUTION WIDTH 13.3 % (9.0-15.0); WHITE BLOOD COUNT (AUTO) 14.6 K/uL (4.8-10.8)
[2020-07-26] MEDS ORDERED: BISACODYL 10 MG/SUPPOSITORY RC PRN (09:15)
[2020-07-26] MEDS: PANTOPRAZOLE SODIUM 40 MG/VIAL (PROTONIX) IVP SCH (09:27)
[2020-07-26] MEDS: ASCORBIC ACID 500 MG TABLET NG SCH (09:27)
[2020-07-26] MEDS: CHOLECALCIFEROL (VITAMIN D3) 5,000 UNIT TABLET NG SCH (09:27)
[2020-07-26 09:33] LABS: ERYTHROCYTE SEDIMENTATION RATE 109 MM/HR (0-15)
[2020-07-26 10:59] LABS: C-REACTIVE PROTEIN QUANT 19.3 mg/dL (0-0.5)
[2020-07-26] MEDS ORDERED: METOCLOPRAMIDE HCL 10 MG/2 ML VIAL ONE (17:17)
[2020-07-26] MEDS ORDERED: NOREPINEPHRINE BITARTRATE 4 MG in NS 246 ML IV PRN ×2 (17:30→21:30)
[2020-07-26] MEDS ORDERED: NOREPINEPHRINE 4 MG/4 ML VIAL IV ONE (20:37)
[2020-07-27] VITALS (31 sets, daily range): BP systolic 60–191
[2020-07-27] MEDS: PIPERACILLIN/TAZO 2.25G/DEX-IS 50 ML IV SCH ×4 (01:06→22:40)
[2020-07-27] MEDS: HEPARIN SODIUM,PORCINE 5,000 UNITS/ML VIAL SUBCUT SCH ×4 (01:15→22:00)
[2020-07-27] MEDS: METOCLOPRAMIDE HCL 10 MG/2 ML VIAL IVP SCH ×3 (02:00→18:00)
[2020-07-27] MEDS: ALBUTEROL MDI INHALATION 8 GM INH INH PRN (03:20)
[2020-07-27 06:49] LABS: BASOPHILS # (AUTO) 0.1 K/uL (0.0-0.2); BASOPHILS % (AUTO) 0.6 % (0.0-2.0); EOSINOPHILS # (AUTO) 0.4 K/uL (0.0-0.4); EOSINOPHILS % (AUTO) 2.4 % (0.0-4.0); HEMATOCRIT 24.5 % (36-54); HEMOGLOBIN 8.4 g/dL (14.0-18.0); LYMPHOCYTES # (AUTO) 0.6 K/uL (1.0-5.5); LYMPHOCYTES % (AUTO) 3.6 % (20.5-51.5); MEAN CORPUSCULAR HEMOGLOBIN 31 pg (27-31); MEAN CORPUSCULAR HGB CONC 34 % (32-36); MEAN CORPUSCULAR VOLUME 91 fL (79.0-98.0); MONOCYTES # (AUTO) 0.5 K/uL (0.0-1.0); MONOCYTES % (AUTO) 2.7 % (1.7-9.3); NEUTROPHILS # (AUTO) 15.9 K/uL (1.8-7.7); NEUTROPHILS % (AUTO) 90.7 % (40.0-70.0); PLATELET COUNT (AUTO) 153 K/uL (130-430); RED BLOOD CELL COUNT(AUTO) 2.69 MIL/uL (4.2-6.2); RED CELL DISTRIBUTION WIDTH 13.3 % (9.0-15.0); WHITE BLOOD COUNT (AUTO) 17.5 K/uL (4.8-10.8)
[2020-07-27] MEDS: INSULIN REGULAR, HUMAN 100 UNITS/ML, 10 ML VIAL (humuLIN R) SUBCUT PRN (06:51)
[2020-07-27] MEDS: INSULIN NPH/REGULAR 70-30, 100 UNITS/ML, 10 ML VIAL SUBCUT SCH ×2 (06:52→17:00)
[2020-07-27 08:00] LABS: POTASSIUM 3.6 mmol/L (3.5-5.1)
[2020-07-27 08:51] LABS: ERYTHROCYTE SEDIMENTATION RATE 108 MM/HR (0-15)
[2020-07-27 09:32] LABS: CREATININE 8.67 mg/dL (0.55-1.30)
[2020-07-27] MEDS: ASCORBIC ACID 500 MG TABLET NG SCH (10:48)
[2020-07-27] MEDS: PANTOPRAZOLE SODIUM 40 MG/VIAL (PROTONIX) IVP SCH (10:48)
[2020-07-27] MEDS: MORPHINE I.V. DRIP 100 ML IV PRN (10:48)
[2020-07-27] MEDS: CHOLECALCIFEROL (VITAMIN D3) 5,000 UNIT TABLET NG SCH (10:49)
[2020-07-27] MEDS ORDERED: HEPARIN SODIUM,PORCINE 5,000 UNITS/ML VIAL ONE (12:14)
[2020-07-27 12:46] LABS: C-REACTIVE PROTEIN QUANT 21.4 mg/dL (0-0.5)
[2020-07-27 14:56] LABS: CALCIUM 7.4 mg/dL (8.4-11.0)
[2020-07-27] MEDS ORDERED: METOCLOPRAMIDE HCL 10 MG/2 ML VIAL ONE (18:10)
[2020-07-28] VITALS (30 sets, daily range): BP systolic 96–138
[2020-07-28] MEDS: INSULIN REGULAR, HUMAN 100 UNITS/ML, 10 ML VIAL (humuLIN R) SUBCUT PRN ×4 (00:44→17:14)
[2020-07-28] MEDS ORDERED: METOCLOPRAMIDE HCL 10 MG/2 ML VIAL ONE ×3 (02:57→17:19)
[2020-07-28] MEDS: METOCLOPRAMIDE HCL 10 MG/2 ML VIAL IVP SCH ×3 (05:54→17:19)
[2020-07-28] MEDS: HEPARIN SODIUM,PORCINE 5,000 UNITS/ML VIAL SUBCUT SCH ×3 (06:00→23:43)
[2020-07-28] MEDS: PIPERACILLIN/TAZO 2.25G/DEX-IS 50 ML IV SCH ×3 (06:41→22:00)
[2020-07-28] MEDS: INSULIN NPH/REGULAR 70-30, 100 UNITS/ML, 10 ML VIAL SUBCUT SCH ×2 (06:43→17:16)
[2020-07-28] MEDS: ALBUTEROL MDI INHALATION 8 GM INH INH PRN ×4 (09:12→22:08)
[2020-07-28] MEDS: PANTOPRAZOLE SODIUM 40 MG/VIAL (PROTONIX) IVP SCH (09:14)
[2020-07-28] MEDS: CHOLECALCIFEROL (VITAMIN D3) 5,000 UNIT TABLET NG SCH (09:14)
[2020-07-28] MEDS: ASCORBIC ACID 500 MG TABLET NG SCH (09:14)
[2020-07-29] VITALS (24 sets, daily range): BP systolic 98–141
[2020-07-29] MEDS: PIPERACILLIN/TAZO 2.25G/DEX-IS 50 ML IV SCH ×3 (06:18→22:00)
[2020-07-29] MEDS: INSULIN NPH/REGULAR 70-30, 100 UNITS/ML, 10 ML VIAL SUBCUT SCH ×2 (06:26→17:58)
[2020-07-29 06:42] LABS: BASOPHILS # (AUTO) 0.2 K/uL (0.0-0.2); BASOPHILS % (AUTO) 0.8 % (0.0-2.0); EOSINOPHILS # (AUTO) 0.5 K/uL (0.0-0.4); EOSINOPHILS % (AUTO) 2.6 % (0.0-4.0); HEMATOCRIT 24.9 % (36-54); HEMOGLOBIN 8.5 g/dL (14.0-18.0); LYMPHOCYTES # (AUTO) 0.8 K/uL (1.0-5.5); MEAN CORPUSCULAR HEMOGLOBIN 31 pg (27-31); MEAN CORPUSCULAR HGB CONC 34 % (32-36); MEAN CORPUSCULAR VOLUME 91 fL (79.0-98.0); MONOCYTES # (AUTO) 0.7 K/uL (0.0-1.0); MONOCYTES % (AUTO) 3.7 % (1.7-9.3); NEUTROPHILS # (AUTO) 16.9 K/uL (1.8-7.7); NEUTROPHILS % (AUTO) 88.9 % (40.0-70.0); PLATELET COUNT (AUTO) 159 K/uL (130-430); RED BLOOD CELL COUNT(AUTO) 2.74 MIL/uL (4.2-6.2); RED CELL DISTRIBUTION WIDTH 13.9 % (9.0-15.0)
[2020-07-29 06:49] LABS: ALBUMIN 1.2 g/dL (3.4-4.8); POTASSIUM 3.4 mmol/L (3.5-5.1); TOTAL BILIRUBIN 0.4 mg/dL (0.0-1.0)
[2020-07-29] MEDS: MIDAZOLAM HCL IN 0.9 % NACL/PF 50 ML IV PRN (07:39)
[2020-07-29 07:43] LABS: CREATININE 8.26 mg/dL (0.55-1.30)
[2020-07-29 08:20] LABS: C-REACTIVE PROTEIN QUANT 21.8 mg/dL (0-0.5)
[2020-07-29] MEDS: ALBUTEROL MDI INHALATION 8 GM INH INH PRN ×4 (08:40→23:54)
[2020-07-29] MEDS: ASCORBIC ACID 500 MG TABLET NG SCH (09:08)
[2020-07-29] MEDS: PANTOPRAZOLE SODIUM 40 MG/VIAL (PROTONIX) IVP SCH (09:08)
[2020-07-29] MEDS: CHOLECALCIFEROL (VITAMIN D3) 5,000 UNIT TABLET NG SCH (09:08)
[2020-07-29] MEDS: BISACODYL 10 MG/SUPPOSITORY RC SCH (09:10)
[2020-07-29 09:33] LABS: ERYTHROCYTE SEDIMENTATION RATE 119 MM/HR (0-15)
[2020-07-29] MEDS ORDERED: HEPARIN SODIUM,PORCINE 5,000 UNITS/ML VIAL ONE ×2 (11:30→15:43)
[2020-07-29] MEDS: METOCLOPRAMIDE HCL 10 MG/2 ML VIAL IVP SCH ×2 (12:37→17:31)
[2020-07-29] MEDS: HEPARIN SODIUM,PORCINE 5,000 UNITS/ML VIAL SUBCUT SCH ×2 (13:57→22:00)
[2020-07-29] MEDS ORDERED: NOREPINEPHRINE 4 MG/4 ML VIAL IV ONE (14:30)
[2020-07-29] MEDS: NOREPINEPHRINE BITARTRATE 4 MG in NS 246 ML IV PRN (14:56)
[2020-07-30] VITALS (21 sets, daily range): BP systolic 86–111
[2020-07-30] MEDS: METOCLOPRAMIDE HCL 10 MG/2 ML VIAL IVP SCH ×4 (00:49→18:00)
[2020-07-30] MEDS: ALBUTEROL MDI INHALATION 8 GM INH INH PRN ×5 (03:59→23:10)
[2020-07-30] MEDS: PIPERACILLIN/TAZO 2.25G/DEX-IS 50 ML IV SCH ×3 (06:00→21:22)
[2020-07-30 06:42] LABS: CALCIUM 7.5 mg/dL (8.4-11.0); CREATININE 7.15 mg/dL (0.55-1.30); POTASSIUM 3.5 mmol/L (3.5-5.1)
[2020-07-30 06:48] LABS: BASOPHILS # (AUTO) 0.1 K/uL (0.0-0.2); BASOPHILS % (AUTO) 0.6 % (0.0-2.0); EOSINOPHILS # (AUTO) 0.4 K/uL (0.0-0.4); EOSINOPHILS % (AUTO) 2.2 % (0.0-4.0); HEMATOCRIT 22.5 % (36-54); HEMOGLOBIN 7.7 g/dL (14.0-18.0); LYMPHOCYTES # (AUTO) 0.5 K/uL (1.0-5.5); LYMPHOCYTES % (AUTO) 2.9 % (20.5-51.5); MEAN CORPUSCULAR HEMOGLOBIN 31 pg (27-31); MEAN CORPUSCULAR HGB CONC 34 % (32-36); MEAN CORPUSCULAR VOLUME 91 fL (79.0-98.0); MONOCYTES # (AUTO) 0.6 K/uL (0.0-1.0); MONOCYTES % (AUTO) 3.8 % (1.7-9.3); NEUTROPHILS # (AUTO) 14.6 K/uL (1.8-7.7); NEUTROPHILS % (AUTO) 90.5 % (40.0-70.0); PLATELET COUNT (AUTO) 134 K/uL (130-430); RED BLOOD CELL COUNT(AUTO) 2.47 MIL/uL (4.2-6.2); RED CELL DISTRIBUTION WIDTH 13.8 % (9.0-15.0); WHITE BLOOD COUNT (AUTO) 16.2 K/uL (4.8-10.8)
[2020-07-30] MEDS: HEPARIN SODIUM,PORCINE 5,000 UNITS/ML VIAL SUBCUT SCH ×3 (07:30→21:22)
[2020-07-30] MEDS: INSULIN NPH/REGULAR 70-30, 100 UNITS/ML, 10 ML VIAL SUBCUT SCH ×2 (08:30→18:18)
[2020-07-30] MEDS: PANTOPRAZOLE SODIUM 40 MG/VIAL (PROTONIX) IVP SCH (08:54)
[2020-07-30] MEDS: BISACODYL 10 MG/SUPPOSITORY RC SCH (08:54)
[2020-07-30] MEDS: ASCORBIC ACID 500 MG TABLET NG SCH (08:54)
[2020-07-30] MEDS: CHOLECALCIFEROL (VITAMIN D3) 5,000 UNIT TABLET NG SCH (08:55)
[2020-07-30] MEDS: INSULIN REGULAR, HUMAN 100 UNITS/ML, 10 ML VIAL (humuLIN R) SUBCUT PRN ×2 (12:02→18:19)
[2020-07-30] MEDS: MORPHINE I.V. DRIP 100 ML IV PRN (14:27)
[2020-07-30] MEDS: MIDAZOLAM HCL IN 0.9 % NACL/PF 50 ML IV PRN (14:32)
[2020-07-31] VITALS (31 sets, daily range): BP systolic 83–150
[2020-07-31] MEDS: PIPERACILLIN/TAZO 2.25G/DEX-IS 50 ML IV SCH ×3 (05:53→20:43)
[2020-07-31] MEDS: HEPARIN SODIUM,PORCINE 5,000 UNITS/ML VIAL SUBCUT SCH ×3 (05:54→20:44)
[2020-07-31] MEDS: INSULIN REGULAR, HUMAN 100 UNITS/ML, 10 ML VIAL (humuLIN R) SUBCUT PRN ×3 (05:55→18:14)
[2020-07-31] MEDS: INSULIN NPH/REGULAR 70-30, 100 UNITS/ML, 10 ML VIAL SUBCUT SCH ×2 (05:56→18:15)
[2020-07-31] MEDS: METOCLOPRAMIDE HCL 10 MG/2 ML VIAL IVP SCH ×5 (05:57→23:46)
[2020-07-31 06:49] LABS: BASOPHILS # (AUTO) 0.1 K/uL (0.0-0.2); BASOPHILS % (AUTO) 0.6 % (0.0-2.0); EOSINOPHILS # (AUTO) 0.2 K/uL (0.0-0.4); HEMATOCRIT 23.3 % (36-54); HEMOGLOBIN 7.8 g/dL (14.0-18.0); LYMPHOCYTES # (AUTO) 0.6 K/uL (1.0-5.5); LYMPHOCYTES % (AUTO) 2.9 % (20.5-51.5); MEAN CORPUSCULAR HEMOGLOBIN 31 pg (27-31); MEAN CORPUSCULAR HGB CONC 33 % (32-36); MEAN CORPUSCULAR VOLUME 92 fL (79.0-98.0); MONOCYTES # (AUTO) 0.7 K/uL (0.0-1.0); MONOCYTES % (AUTO) 3.7 % (1.7-9.3); NEUTROPHILS # (AUTO) 17.3 K/uL (1.8-7.7); NEUTROPHILS % (AUTO) 91.8 % (40.0-70.0); PLATELET COUNT (AUTO) 160 K/uL (130-430); RED BLOOD CELL COUNT(AUTO) 2.53 MIL/uL (4.2-6.2); RED CELL DISTRIBUTION WIDTH 14.3 % (9.0-15.0); WHITE BLOOD COUNT (AUTO) 18.9 K/uL (4.8-10.8)
[2020-07-31 07:31] LABS: CALCIUM 7.5 mg/dL (8.4-11.0); POTASSIUM 3.8 mmol/L (3.5-5.1)
[2020-07-31 07:34] LABS: CREATININE 8.14 mg/dL (0.55-1.30)
[2020-07-31] MEDS: ALBUTEROL MDI INHALATION 8 GM INH INH PRN ×3 (08:52→21:22)
[2020-07-31] MEDS: PANTOPRAZOLE SODIUM 40 MG/VIAL (PROTONIX) IVP SCH (08:59)
[2020-07-31] MEDS: CHOLECALCIFEROL (VITAMIN D3) 5,000 UNIT TABLET NG SCH (08:59)
[2020-07-31] MEDS: ASCORBIC ACID 500 MG TABLET NG SCH (08:59)
[2020-07-31] MEDS: BISACODYL 10 MG/SUPPOSITORY RC SCH (09:00)
[2020-07-31] MEDS ORDERED: HEPARIN SODIUM,PORCINE 5,000 UNITS/ML VIAL IVP ONE (10:30)
[2020-07-31] MEDS ORDERED: HEPARIN SODIUM,PORCINE 5,000 UNITS/ML VIAL ONE (10:49)
[2020-08-01] VITALS (30 sets, daily range): BP systolic 96–136
[2020-08-01] MEDS: ALBUTEROL MDI INHALATION 8 GM INH INH PRN ×2 (04:59→21:17)
[2020-08-01] MEDS: METOCLOPRAMIDE HCL 10 MG/2 ML VIAL IVP SCH ×4 (06:00→23:55)
[2020-08-01] MEDS: HEPARIN SODIUM,PORCINE 5,000 UNITS/ML VIAL SUBCUT SCH ×3 (06:00→22:10)
[2020-08-01] MEDS: PIPERACILLIN/TAZO 2.25G/DEX-IS 50 ML IV SCH ×3 (06:31→22:08)
[2020-08-01] MEDS: INSULIN NPH/REGULAR 70-30, 100 UNITS/ML, 10 ML VIAL SUBCUT SCH ×2 (06:32→17:27)
[2020-08-01 06:39] LABS: INR 1.1 (0.80-1.20); PROTHROMBIN TIME 11.3 SECS (9.5-12.5)
[2020-08-01 07:27] LABS: ALBUMIN 1.2 g/dL (3.4-4.8); CALCIUM 7.4 mg/dL (8.4-11.0); CREATININE 7.25 mg/dL (0.55-1.30); POTASSIUM 3.7 mmol/L (3.5-5.1); TOTAL BILIRUBIN 0.4 mg/dL (0.0-1.0)
[2020-08-01 07:31] LABS: BASOPHILS # (AUTO) 0.1 K/uL (0.0-0.2); BASOPHILS % (AUTO) 0.5 % (0.0-2.0); EOSINOPHILS # (AUTO) 0.4 K/uL (0.0-0.4); EOSINOPHILS % (AUTO) 2.7 % (0.0-4.0); HEMATOCRIT 22.8 % (36-54); HEMOGLOBIN 7.6 g/dL (14.0-18.0); MEAN CORPUSCULAR HEMOGLOBIN 31 pg (27-31); MEAN CORPUSCULAR HGB CONC 33 % (32-36); MEAN CORPUSCULAR VOLUME 92 fL (79.0-98.0); MONOCYTES # (AUTO) 0.7 K/uL (0.0-1.0); MONOCYTES % (AUTO) 4.3 % (1.7-9.3); NEUTROPHILS # (AUTO) 13.8 K/uL (1.8-7.7); NEUTROPHILS % (AUTO) 86.5 % (40.0-70.0); PLATELET COUNT (AUTO) 157 K/uL (130-430); RED BLOOD CELL COUNT(AUTO) 2.48 MIL/uL (4.2-6.2); RED CELL DISTRIBUTION WIDTH 14.3 % (9.0-15.0)
[2020-08-01] MEDS: ASCORBIC ACID 500 MG TABLET NG SCH (08:39)
[2020-08-01] MEDS: PANTOPRAZOLE SODIUM 40 MG/VIAL (PROTONIX) IVP SCH (08:40)
[2020-08-01] MEDS: CHOLECALCIFEROL (VITAMIN D3) 5,000 UNIT TABLET NG SCH (08:40)
[2020-08-01] MEDS ORDERED: PROPOFOL DRIP 100 ML IV PRN (10:45)
[2020-08-01] MEDS: INSULIN REGULAR, HUMAN 100 UNITS/ML, 10 ML VIAL (humuLIN R) SUBCUT PRN ×2 (14:34→17:28)
[2020-08-02] VITALS (28 sets, daily range): BP systolic 114–178
[2020-08-02] MEDS: INSULIN REGULAR, HUMAN 100 UNITS/ML, 10 ML VIAL (humuLIN R) SUBCUT PRN ×4 (00:12→17:27)
[2020-08-02] MEDS ORDERED: MIDAZOLAM IV ONE (02:21)
[2020-08-02] MEDS ORDERED: SODIUM CHLORIDE 0.9% IV ONE (02:21)
[2020-08-02] MEDS: PIPERACILLIN/TAZO 2.25G/DEX-IS 50 ML IV SCH ×3 (06:06→21:30)
[2020-08-02] MEDS: METOCLOPRAMIDE HCL 10 MG/2 ML VIAL IVP SCH ×3 (06:10→17:26)
[2020-08-02] MEDS: INSULIN NPH/REGULAR 70-30, 100 UNITS/ML, 10 ML VIAL SUBCUT SCH ×2 (06:12→17:27)
[2020-08-02] MEDS: HEPARIN SODIUM,PORCINE 5,000 UNITS/ML VIAL SUBCUT SCH ×3 (06:13→21:32)
[2020-08-02 07:23] LABS: BASOPHILS # (AUTO) 0.1 K/uL (0.0-0.2); BASOPHILS % (AUTO) 0.7 % (0.0-2.0); EOSINOPHILS # (AUTO) 0.4 K/uL (0.0-0.4); EOSINOPHILS % (AUTO) 2.9 % (0.0-4.0); HEMATOCRIT 22.5 % (36-54); HEMOGLOBIN 7.5 g/dL (14.0-18.0); LYMPHOCYTES # (AUTO) 0.9 K/uL (1.0-5.5); LYMPHOCYTES % (AUTO) 6.3 % (20.5-51.5); MEAN CORPUSCULAR HEMOGLOBIN 31 pg (27-31); MEAN CORPUSCULAR HGB CONC 33 % (32-36); MEAN CORPUSCULAR VOLUME 92 fL (79.0-98.0); MONOCYTES # (AUTO) 0.6 K/uL (0.0-1.0); MONOCYTES % (AUTO) 4.5 % (1.7-9.3); NEUTROPHILS # (AUTO) 11.8 K/uL (1.8-7.7); NEUTROPHILS % (AUTO) 85.6 % (40.0-70.0); PLATELET COUNT (AUTO) 154 K/uL (130-430); RED BLOOD CELL COUNT(AUTO) 2.45 MIL/uL (4.2-6.2); RED CELL DISTRIBUTION WIDTH 14.4 % (9.0-15.0); WHITE BLOOD COUNT (AUTO) 13.8 K/uL (4.8-10.8)
[2020-08-02 07:36] LABS: ALBUMIN 1.2 g/dL (3.4-4.8); CALCIUM 7.7 mg/dL (8.4-11.0); POTASSIUM 3.9 mmol/L (3.5-5.1); TOTAL BILIRUBIN 0.4 mg/dL (0.0-1.0)
[2020-08-02 07:58] LABS: INR 1.1 (0.80-1.20); PROTHROMBIN TIME 11.5 SECS (9.5-12.5)
[2020-08-02 08:18] LABS: CREATININE 8.35 mg/dL (0.55-1.30)
[2020-08-02] MEDS ORDERED: ALBUMIN HUMAN 25% 100 ML IV PRN (08:30)
[2020-08-02] MEDS: ALBUTEROL MDI INHALATION 8 GM INH INH PRN ×3 (09:01→20:08)
[2020-08-02] MEDS: CHOLECALCIFEROL (VITAMIN D3) 5,000 UNIT TABLET NG SCH (09:55)
[2020-08-02] MEDS: PANTOPRAZOLE SODIUM 40 MG/VIAL (PROTONIX) IVP SCH (09:55)
[2020-08-02] MEDS: ASCORBIC ACID 500 MG TABLET NG SCH (09:55)
[2020-08-02] MEDS ORDERED: HEPARIN SODIUM, PORCINE 10,000 UNITS/ 10 ML VIAL MC ONE (11:30)
[2020-08-02 11:37] LABS: C-REACTIVE PROTEIN QUANT 21.6 mg/dL (0-0.5)
[2020-08-02 12:29] LABS: ERYTHROCYTE SEDIMENTATION RATE 121 MM/HR (0-15)
[2020-08-02] MEDS: PROPOFOL DRIP 100 ML IV PRN (19:25)
[2020-08-03] VITALS (29 sets, daily range): BP systolic 90–147
[2020-08-03] MEDS: ALBUTEROL MDI INHALATION 8 GM INH INH PRN ×4 (00:13→21:43)
[2020-08-03] MEDS: METOCLOPRAMIDE HCL 10 MG/2 ML VIAL IVP SCH ×5 (00:27→23:06)
[2020-08-03] MEDS: INSULIN REGULAR, HUMAN 100 UNITS/ML, 10 ML VIAL (humuLIN R) SUBCUT PRN ×4 (00:37→17:34)
[2020-08-03] MEDS: PIPERACILLIN/TAZO 2.25G/DEX-IS 50 ML IV SCH ×3 (06:17→23:00)
[2020-08-03] MEDS: HEPARIN SODIUM,PORCINE 5,000 UNITS/ML VIAL SUBCUT SCH ×3 (06:18→22:00)
[2020-08-03] MEDS: INSULIN NPH/REGULAR 70-30, 100 UNITS/ML, 10 ML VIAL SUBCUT SCH ×2 (06:20→17:31)
[2020-08-03] MEDS: CHOLECALCIFEROL (VITAMIN D3) 5,000 UNIT TABLET NG SCH (10:16)
[2020-08-03] MEDS: ASCORBIC ACID 500 MG TABLET NG SCH (10:16)
[2020-08-03] MEDS: PANTOPRAZOLE SODIUM 40 MG/VIAL (PROTONIX) IVP SCH (10:16)
[2020-08-04] VITALS (28 sets, daily range): BP systolic 76–140
[2020-08-04] MEDS: INSULIN REGULAR, HUMAN 100 UNITS/ML, 10 ML VIAL (humuLIN R) SUBCUT PRN ×3 (00:11→17:12)
[2020-08-04] MEDS: HEPARIN SODIUM,PORCINE 5,000 UNITS/ML VIAL SUBCUT SCH ×3 (06:00→22:00)
[2020-08-04 06:34] LABS: BASOPHILS # (AUTO) 0.2 K/uL (0.0-0.2); BASOPHILS % (AUTO) 1.4 % (0.0-2.0); EOSINOPHILS # (AUTO) 0.5 K/uL (0.0-0.4); EOSINOPHILS % (AUTO) 3.8 % (0.0-4.0); HEMATOCRIT 23.7 % (36-54); LYMPHOCYTES # (AUTO) 0.5 K/uL (1.0-5.5); LYMPHOCYTES % (AUTO) 4.5 % (20.5-51.5); MEAN CORPUSCULAR HEMOGLOBIN 31 pg (27-31); MEAN CORPUSCULAR HGB CONC 34 % (32-36); MEAN CORPUSCULAR VOLUME 92 fL (79.0-98.0); MONOCYTES # (AUTO) 0.4 K/uL (0.0-1.0); MONOCYTES % (AUTO) 3.7 % (1.7-9.3); NEUTROPHILS # (AUTO) 10.4 K/uL (1.8-7.7); NEUTROPHILS % (AUTO) 86.6 % (40.0-70.0); PLATELET COUNT (AUTO) 158 K/uL (130-430); RED BLOOD CELL COUNT(AUTO) 2.58 MIL/uL (4.2-6.2); RED CELL DISTRIBUTION WIDTH 14.6 % (9.0-15.0); WHITE BLOOD COUNT (AUTO) 11.9 K/uL (4.8-10.8)
[2020-08-04 06:45] LABS: CALCIUM 7.9 mg/dL (8.4-11.0)
[2020-08-04] MEDS: METOCLOPRAMIDE HCL 10 MG/2 ML VIAL IVP SCH ×4 (06:49→23:12)
[2020-08-04] MEDS: PIPERACILLIN/TAZO 2.25G/DEX-IS 50 ML IV SCH ×3 (06:54→23:18)
[2020-08-04] MEDS: INSULIN NPH/REGULAR 70-30, 100 UNITS/ML, 10 ML VIAL SUBCUT SCH ×2 (06:55→17:11)
[2020-08-04 07:02] LABS: CREATININE 7.73 mg/dL (0.55-1.30)
[2020-08-04 07:39] LABS: C-REACTIVE PROTEIN QUANT 19.7 mg/dL (0-0.5)
[2020-08-04 08:15] LABS: HEMOGLOBIN 7.9 g/dL (14.0-18.0)
[2020-08-04] MEDS: PANTOPRAZOLE SODIUM 40 MG/VIAL (PROTONIX) IVP SCH (08:52)
[2020-08-04] MEDS: CHOLECALCIFEROL (VITAMIN D3) 5,000 UNIT TABLET NG SCH (08:52)
[2020-08-04] MEDS: ASCORBIC ACID 500 MG TABLET NG SCH (08:52)
[2020-08-04 09:08] LABS: ERYTHROCYTE SEDIMENTATION RATE 114 MM/HR (0-15)
[2020-08-04] MEDS: ALBUTEROL MDI INHALATION 8 GM INH INH PRN ×2 (10:33→14:00)
[2020-08-04] MEDS ORDERED: VECURONIUM BROMIDE 10 MG/VIAL (NORCURON) ONE (15:56)
[2020-08-04] MEDS ORDERED: MORPHINE I.V. DRIP 100 ML IV ONE (15:57)
[2020-08-04] MEDS ORDERED: VECURONIUM BROMIDE 10 MG/VIAL (NORCURON) IVP ONE (16:15)
[2020-08-04] MEDS ORDERED: ALTEPLASE 2 MG VIAL MC ONE ×2 (17:59→18:45)
[2020-08-04] MEDS ORDERED: HEPARIN SODIUM,PORCINE 5,000 UNITS/ML VIAL MC ONE (18:30)
[2020-08-04] MEDS ORDERED: HEPARIN SODIUM,PORCINE 5,000 UNITS/ML VIAL ONE (18:33)
[2020-08-05] VITALS (29 sets, daily range): BP systolic 88–143
[2020-08-05] MEDS: HEPARIN SODIUM,PORCINE 5,000 UNITS/ML VIAL SUBCUT SCH ×3 (06:00→22:00)
[2020-08-05] MEDS: METOCLOPRAMIDE HCL 10 MG/2 ML VIAL IVP SCH ×3 (06:32→17:43)
[2020-08-05] MEDS: PIPERACILLIN/TAZO 2.25G/DEX-IS 50 ML IV SCH ×3 (06:33→22:37)
[2020-08-05 06:48] LABS: BASOPHILS # (AUTO) 0.1 K/uL (0.0-0.2); BASOPHILS % (AUTO) 0.7 % (0.0-2.0); EOSINOPHILS # (AUTO) 0.3 K/uL (0.0-0.4); EOSINOPHILS % (AUTO) 2.1 % (0.0-4.0); HEMATOCRIT 24.3 % (36-54); HEMOGLOBIN 8.1 g/dL (14.0-18.0); LYMPHOCYTES # (AUTO) 0.8 K/uL (1.0-5.5); LYMPHOCYTES % (AUTO) 5.4 % (20.5-51.5); MEAN CORPUSCULAR HEMOGLOBIN 31 pg (27-31); MEAN CORPUSCULAR HGB CONC 33 % (32-36); MEAN CORPUSCULAR VOLUME 93 fL (79.0-98.0); MONOCYTES # (AUTO) 0.8 K/uL (0.0-1.0); NEUTROPHILS # (AUTO) 12.2 K/uL (1.8-7.7); NEUTROPHILS % (AUTO) 85.8 % (40.0-70.0); PLATELET COUNT (AUTO) 214 K/uL (130-430); RED BLOOD CELL COUNT(AUTO) 2.62 MIL/uL (4.2-6.2); RED CELL DISTRIBUTION WIDTH 15.1 % (9.0-15.0); WHITE BLOOD COUNT (AUTO) 14.2 K/uL (4.8-10.8)
[2020-08-05 06:55] LABS: CALCIUM 7.8 mg/dL (8.4-11.0); CREATININE 6.3 mg/dL (0.55-1.30); POTASSIUM 4.5 mmol/L (3.5-5.1)
[2020-08-05] MEDS: INSULIN NPH/REGULAR 70-30, 100 UNITS/ML, 10 ML VIAL SUBCUT SCH ×2 (06:59→17:29)
[2020-08-05] MEDS: INSULIN REGULAR, HUMAN 100 UNITS/ML, 10 ML VIAL (humuLIN R) SUBCUT PRN ×3 (06:59→17:30)
[2020-08-05 08:03] LABS: C-REACTIVE PROTEIN QUANT 21.2 mg/dL (0-0.5)
[2020-08-05] MEDS ORDERED: NOREPINEPHRINE 4 MG/4 ML VIAL IV ONE ×2 (09:23→17:21)
[2020-08-05] MEDS: PANTOPRAZOLE SODIUM 40 MG/VIAL (PROTONIX) IVP SCH (09:37)
[2020-08-05] MEDS: ASCORBIC ACID 500 MG TABLET NG SCH (09:37)
[2020-08-05] MEDS: CHOLECALCIFEROL (VITAMIN D3) 5,000 UNIT TABLET NG SCH (09:37)
[2020-08-05 10:08] LABS: ERYTHROCYTE SEDIMENTATION RATE 121 MM/HR (0-15)
[2020-08-06] VITALS (30 sets, daily range): BP systolic 34–155
[2020-08-06] MEDS: INSULIN REGULAR, HUMAN 100 UNITS/ML, 10 ML VIAL (humuLIN R) SUBCUT PRN ×3 (02:16→17:43)
[2020-08-06] MEDS ORDERED: NOREPINEPHRINE 4 MG/4 ML VIAL IV ONE (04:10)
[2020-08-06] MEDS: METOCLOPRAMIDE HCL 10 MG/2 ML VIAL IVP SCH ×3 (06:00→12:12)
[2020-08-06] MEDS: PIPERACILLIN/TAZO 2.25G/DEX-IS 50 ML IV SCH ×3 (06:00→21:18)
[2020-08-06 07:06] LABS: CREATININE 5.56 mg/dL (0.55-1.30); POTASSIUM 4.4 mmol/L (3.5-5.1)
[2020-08-06 07:18] LABS: BASOPHILS # (AUTO) 0.1 K/uL (0.0-0.2); BASOPHILS % (AUTO) 1.1 % (0.0-2.0); EOSINOPHILS # (AUTO) 0.4 K/uL (0.0-0.4); EOSINOPHILS % (AUTO) 2.7 % (0.0-4.0); HEMOGLOBIN 8.2 g/dL (14.0-18.0); LYMPHOCYTES # (AUTO) 1.2 K/uL (1.0-5.5); LYMPHOCYTES % (AUTO) 8.7 % (20.5-51.5); MEAN CORPUSCULAR HEMOGLOBIN 32 pg (27-31); MEAN CORPUSCULAR HGB CONC 34 % (32-36); MEAN CORPUSCULAR VOLUME 94 fL (79.0-98.0); MONOCYTES # (AUTO) 0.9 K/uL (0.0-1.0); MONOCYTES % (AUTO) 6.7 % (1.7-9.3); NEUTROPHILS # (AUTO) 11.1 K/uL (1.8-7.7); NEUTROPHILS % (AUTO) 80.8 % (40.0-70.0); PLATELET COUNT (AUTO) 223 K/uL (130-430); RED BLOOD CELL COUNT(AUTO) 2.56 MIL/uL (4.2-6.2); RED CELL DISTRIBUTION WIDTH 15.2 % (9.0-15.0); WHITE BLOOD COUNT (AUTO) 13.7 K/uL (4.8-10.8)
[2020-08-06] MEDS: INSULIN NPH/REGULAR 70-30, 100 UNITS/ML, 10 ML VIAL SUBCUT SCH ×2 (08:29→16:55)
[2020-08-06] MEDS: ASCORBIC ACID 500 MG TABLET NG SCH (08:33)
[2020-08-06] MEDS: PANTOPRAZOLE SODIUM 40 MG/VIAL (PROTONIX) IVP SCH (08:33)
[2020-08-06] MEDS: CHOLECALCIFEROL (VITAMIN D3) 5,000 UNIT TABLET NG SCH (08:34)
[2020-08-06] MEDS: PROPOFOL DRIP 100 ML IV PRN ×4 (08:34→16:20)
[2020-08-06 09:53] LABS: ERYTHROCYTE SEDIMENTATION RATE 121 MM/HR (0-15)
[2020-08-06] MEDS: NOREPINEPHRINE BITARTRATE 4 MG in NS 246 ML IV PRN ×3 (10:00→16:19)
[2020-08-06] MEDS ORDERED: VASOPRESSIN 20 UNITS/ML VIAL IV ONE (11:27)
[2020-08-06] MEDS ORDERED: MENTHOL/ZINC OXIDE 113 GM OINT. TP PRN (11:45)
[2020-08-06] MEDS: VASOPRESSIN 100 UNITS in D5W 45 ML IV PRN (11:58)
[2020-08-06] MEDS ORDERED: BALSAM PERU/CASTOR OIL 60 GM OINT...G. TP ONE (12:00)
[2020-08-06] MEDS ORDERED: LEVOFLOXACIN 500 MG/D5W 100 ML IV ONE (18:15)
[2020-08-06] MEDS ORDERED: HYDROCORTISONE SOD SUCC 100 MG/2 ML VIAL ONE ×2 (18:34→23:37)
[2020-08-06] MEDS: HYDROCORTISONE SOD SUCC 100 MG/2 ML VIAL IVP SCH (18:35)
[2020-08-06] MEDS: MEROPENEM 500 MG in NS 50 ML IV SCH ×2 (20:00→22:00)
[2020-08-06] MEDS: ALBUTEROL MDI INHALATION 8 GM INH INH PRN (21:01)
[2020-08-06] MEDS ORDERED: LEVOFLOXACIN IV ONE (21:43)
[2020-08-06] MEDS ORDERED: MEROPENEM 500 MG VIAL IV ONE (21:43)
[2020-08-06] MEDS ORDERED: D5W IV ONE (21:43)
[2020-08-06] MEDS ORDERED: VECURONIUM BROMIDE 10 MG/VIAL (NORCURON) ONE ×2 (22:52→23:00)
[2020-08-07] VITALS (28 sets, daily range): BP systolic 93–159
[2020-08-07 00:06] LABS: C-REACTIVE PROTEIN QUANT 17.8 mg/dL (0-0.5)
[2020-08-07] MEDS: INSULIN REGULAR, HUMAN 100 UNITS/ML, 10 ML VIAL (humuLIN R) SUBCUT PRN ×4 (00:06→23:41)
[2020-08-07] MEDS: HYDROCORTISONE SOD SUCC 100 MG/2 ML VIAL IVP SCH ×5 (00:14→23:40)
[2020-08-07] MEDS ORDERED: HYDROCORTISONE SOD SUCC 100 MG/2 ML VIAL ONE ×2 (06:04→23:44)
[2020-08-07] MEDS: MEROPENEM 500 MG in NS 50 ML IV SCH ×3 (06:05→22:00)
[2020-08-07] MEDS: PIPERACILLIN/TAZO 2.25G/DEX-IS 50 ML IV SCH ×3 (06:06→22:00)
[2020-08-07] MEDS: INSULIN NPH/REGULAR 70-30, 100 UNITS/ML, 10 ML VIAL SUBCUT SCH ×2 (06:06→17:52)
[2020-08-07] MEDS: HEPARIN SODIUM,PORCINE 5,000 UNITS/ML VIAL SUBCUT SCH ×2 (06:18→14:00)
[2020-08-07] MEDS: VECURONIUM BROMIDE 50 MG in NS 50 ML IV PRN ×2 (07:48→16:36)
[2020-08-07] MEDS: PANTOPRAZOLE SODIUM 40 MG/VIAL (PROTONIX) IVP SCH (08:59)
[2020-08-07] MEDS: ASCORBIC ACID 500 MG TABLET NG SCH (08:59)
[2020-08-07] MEDS: CHOLECALCIFEROL (VITAMIN D3) 5,000 UNIT TABLET NG SCH (08:59)
[2020-08-07] MEDS: BALSAM PERU/CASTOR OIL 60 GM OINT...G. TP SCH (09:00)
[2020-08-07 11:06] LABS: EOSINOPHILS % (AUTO) 0.1 % (0.0-4.0); LYMPHOCYTES # (AUTO) 0.8 K/uL (1.0-5.5); WHITE BLOOD COUNT (AUTO) 15.3 K/uL (4.8-10.8)
[2020-08-07 11:11] LABS: BASOPHILS # (AUTO) 0.1 K/uL (0.0-0.2); BASOPHILS % (AUTO) 0.7 % (0.0-2.0); LYMPHOCYTES % (AUTO) 5.5 % (20.5-51.5); MEAN CORPUSCULAR HEMOGLOBIN 30 pg (27-31); MEAN CORPUSCULAR HGB CONC 33 % (32-36); MEAN CORPUSCULAR VOLUME 92 fL (79.0-98.0); MONOCYTES # (AUTO) 0.6 K/uL (0.0-1.0); MONOCYTES % (AUTO) 4.1 % (1.7-9.3); NEUTROPHILS # (AUTO) 13.7 K/uL (1.8-7.7); NEUTROPHILS % (AUTO) 89.6 % (40.0-70.0); PLATELET COUNT (AUTO) 291 K/uL (130-430); RED BLOOD CELL COUNT(AUTO) 2.13 MIL/uL (4.2-6.2); RED CELL DISTRIBUTION WIDTH 14.7 % (9.0-15.0)
[2020-08-07 11:12] LABS: ALBUMIN 1.2 g/dL (3.4-4.8); CALCIUM 7.4 mg/dL (8.4-11.0); CREATININE 6.54 mg/dL (0.55-1.30); POTASSIUM 5.7 mmol/L (3.5-5.1); TOTAL BILIRUBIN 0.4 mg/dL (0.0-1.0)
[2020-08-07 11:25] LABS: HEMATOCRIT 19.7 % (36-54); HEMOGLOBIN 6.4 g/dL (14.0-18.0)
[2020-08-07 12:02] LABS: ERYTHROCYTE SEDIMENTATION RATE > 140 MM/HR (0-15)
[2020-08-07] MEDS ORDERED: methylPREDNISolone SOD SUCC/PF 62.5 MG/ML VIAL ONE ×2 (12:32→18:01)
[2020-08-07] MEDS ORDERED: HEPARIN SODIUM,PORCINE 5,000 UNITS/ML VIAL ONE (14:45)
[2020-08-07 16:14] LABS: C-REACTIVE PROTEIN QUANT 13.2 mg/dL (0-0.5)
[2020-08-07 19:04] LABS: HEMATOCRIT 17.6 % (36-54); HEMOGLOBIN 5.9 g/dL (14.0-18.0)
[2020-08-08] VITALS (29 sets, daily range): BP systolic 91–150
[2020-08-08] MEDS: MEROPENEM 500 MG in NS 50 ML IV SCH ×3 (05:09→22:23)
[2020-08-08] MEDS: PIPERACILLIN/TAZO 2.25G/DEX-IS 50 ML IV SCH ×3 (05:09→22:23)
[2020-08-08] MEDS: INSULIN REGULAR, HUMAN 100 UNITS/ML, 10 ML VIAL (humuLIN R) SUBCUT PRN ×3 (05:10→23:38)
[2020-08-08] MEDS: HYDROCORTISONE SOD SUCC 100 MG/2 ML VIAL IVP SCH ×3 (05:10→18:39)
[2020-08-08] MEDS ORDERED: HYDROCORTISONE SOD SUCC 100 MG/2 ML VIAL ONE (05:14)
[2020-08-08 08:32] LABS: BASOPHILS # (AUTO) 0.1 K/uL (0.0-0.2); HEMOGLOBIN 7.1 g/dL (14.0-18.0)
[2020-08-08] MEDS: INSULIN NPH/REGULAR 70-30, 100 UNITS/ML, 10 ML VIAL SUBCUT SCH ×2 (08:32→17:00)
[2020-08-08 08:39] LABS: BASOPHILS % (AUTO) 0.6 % (0.0-2.0); CALCIUM 7.6 mg/dL (8.4-11.0); CREATININE 5.72 mg/dL (0.55-1.30); LYMPHOCYTES # (AUTO) 0.9 K/uL (1.0-5.5); LYMPHOCYTES % (AUTO) 7.4 % (20.5-51.5); MEAN CORPUSCULAR HEMOGLOBIN 30 pg (27-31); MEAN CORPUSCULAR HGB CONC 33 % (32-36); MEAN CORPUSCULAR VOLUME 91 fL (79.0-98.0); MONOCYTES # (AUTO) 1.2 K/uL (0.0-1.0); MONOCYTES % (AUTO) 9.8 % (1.7-9.3); NEUTROPHILS # (AUTO) 9.8 K/uL (1.8-7.7); NEUTROPHILS % (AUTO) 82.2 % (40.0-70.0); PLATELET COUNT (AUTO) 291 K/uL (130-430); POTASSIUM 4.2 mmol/L (3.5-5.1); RED BLOOD CELL COUNT(AUTO) 2.35 MIL/uL (4.2-6.2); RED CELL DISTRIBUTION WIDTH 14.4 % (9.0-15.0); WHITE BLOOD COUNT (AUTO) 11.9 K/uL (4.8-10.8)
[2020-08-08] MEDS: ASCORBIC ACID 500 MG TABLET NG SCH (08:53)
[2020-08-08] MEDS: BALSAM PERU/CASTOR OIL 60 GM OINT...G. TP SCH (08:53)
[2020-08-08] MEDS: CHOLECALCIFEROL (VITAMIN D3) 5,000 UNIT TABLET NG SCH (08:53)
[2020-08-08] MEDS: PANTOPRAZOLE SODIUM 40 MG/VIAL (PROTONIX) IVP SCH (08:53)
[2020-08-08] MEDS: VASOPRESSIN 100 UNITS in D5W 45 ML IV PRN (08:54)
[2020-08-08 09:24] LABS: ERYTHROCYTE SEDIMENTATION RATE 92 MM/HR (0-15)
[2020-08-08 09:42] LABS: HEMATOCRIT 21.3 % (36-54)
[2020-08-08 10:42] LABS: C-REACTIVE PROTEIN QUANT 7.6 mg/dL (0-0.5)
[2020-08-08] MEDS ORDERED: methylPREDNISolone SOD SUCC/PF 62.5 MG/ML VIAL ONE ×2 (12:29→18:44)
[2020-08-08 18:25] LABS: HEMATOCRIT 22.4 % (36-54); HEMOGLOBIN 7.7 g/dL (14.0-18.0)
[2020-08-08] MEDS: VECURONIUM BROMIDE 50 MG in NS 50 ML IV PRN (18:38)
[2020-08-08] MEDS: MORPHINE I.V. DRIP 100 ML IV PRN (20:18)
[2020-08-08] MEDS: PROPOFOL DRIP 100 ML IV PRN (20:48)
[2020-08-08] MEDS ORDERED: PANTOPRAZOLE SODIUM 40 MG/VIAL (PROTONIX) IVP SCH (21:00)
[2020-08-08] MEDS: PANTOPRAZOLE SODIUM 40 MG in NS 50 ML IV SCH (22:30)
[2020-08-09] VITALS (16 sets, daily range): BP systolic 91–137
[2020-08-09] MEDS: VECURONIUM BROMIDE 50 MG in NS 50 ML IV PRN ×2 (02:41→09:08)
[2020-08-09] MEDS: PANTOPRAZOLE SODIUM 40 MG in NS 50 ML IV SCH ×6 (03:30→23:05)
[2020-08-09] MEDS: PROPOFOL DRIP 100 ML IV PRN ×4 (05:06→21:10)
[2020-08-09] MEDS: PIPERACILLIN/TAZO 2.25G/DEX-IS 50 ML IV SCH ×3 (05:07→21:10)
[2020-08-09] MEDS: MEROPENEM 500 MG in NS 50 ML IV SCH ×3 (05:07→21:05)
[2020-08-09] MEDS: INSULIN REGULAR, HUMAN 100 UNITS/ML, 10 ML VIAL (humuLIN R) SUBCUT PRN ×2 (05:08→23:26)
[2020-08-09] MEDS ORDERED: HYDROCORTISONE SOD SUCC 100 MG/2 ML VIAL ONE ×4 (05:12→23:08)
[2020-08-09] MEDS: HYDROCORTISONE SOD SUCC 100 MG/2 ML VIAL IVP SCH ×5 (05:12→23:24)
[2020-08-09] MEDS: INSULIN NPH/REGULAR 70-30, 100 UNITS/ML, 10 ML VIAL SUBCUT SCH ×2 (06:18→18:27)
[2020-08-09] MEDS ORDERED: EPOETIN ALFA 10,000 UNITS/ML VIAL SUBCUT ONE (07:45)
[2020-08-09] MEDS ORDERED: NOREPINEPHRINE 4 MG/4 ML VIAL IV ONE (08:36)
[2020-08-09] MEDS: ASCORBIC ACID 500 MG TABLET NG SCH (09:00)
[2020-08-09] MEDS: CHOLECALCIFEROL (VITAMIN D3) 5,000 UNIT TABLET NG SCH (09:00)
[2020-08-09] MEDS: BALSAM PERU/CASTOR OIL 60 GM OINT...G. TP SCH (09:01)
[2020-08-09] MEDS: SOD FERRIC GLUC COMPLEX/SUC 125 MG in NS 100 ML IV SCH (09:06)
[2020-08-09 14:26] LABS: CALCIUM 7.1 mg/dL (8.4-11.0); CREATININE 6.25 mg/dL (0.55-1.30); POTASSIUM 4.1 mmol/L (3.5-5.1)
[2020-08-09 14:31] LABS: ALBUMIN 1.4 g/dL (3.4-4.8); TOTAL BILIRUBIN 0.5 mg/dL (0.0-1.0)
[2020-08-09 14:32] LABS: MEAN CORPUSCULAR HEMOGLOBIN 31 pg (27-31); MEAN CORPUSCULAR HGB CONC 35 % (32-36); MEAN CORPUSCULAR VOLUME 90 fL (79.0-98.0); PLATELET COUNT (AUTO) 216 K/uL (130-430); RED BLOOD CELL COUNT(AUTO) 2.06 MIL/uL (4.2-6.2); RED CELL DISTRIBUTION WIDTH 14.1 % (9.0-15.0); WHITE BLOOD COUNT (AUTO) 5.7 K/uL (4.8-10.8)
[2020-08-09 14:45] LABS: HEMATOCRIT 18.5 % (36-54); HEMOGLOBIN 6.5 g/dL (14.0-18.0)
[2020-08-09 14:48] LABS: INR 1.1 (0.80-1.20); PROTHROMBIN TIME 11.3 SECS (9.5-12.5)
[2020-08-09 15:42] LABS: BAND % (MANUAL) 8 % (0-6); LYMPHOCYTES % (MANUAL) 8 % (20-46)
[2020-08-09 15:43] LABS: ATYPICAL LYMPHOCYTES % 0 % (0-0); BASOPHILS % (MANUAL) 0 % (0-2); EOSINOPHILS % (MANUAL) 0 % (0-7); MONOCYTES % (MANUAL) 4 % (0-11)
[2020-08-10] VITALS (26 sets, daily range): BP systolic 96–130
[2020-08-10] MEDS: VECURONIUM BROMIDE 50 MG in NS 50 ML IV PRN (00:01)
[2020-08-10] MEDS: PROPOFOL DRIP 100 ML IV PRN ×3 (02:29→14:24)
[2020-08-10] MEDS: PANTOPRAZOLE SODIUM 40 MG in NS 50 ML IV SCH ×5 (04:53→23:34)
[2020-08-10] MEDS: MEROPENEM 500 MG in NS 50 ML IV SCH ×3 (04:59→21:45)
[2020-08-10] MEDS: HYDROCORTISONE SOD SUCC 100 MG/2 ML VIAL IVP SCH ×4 (04:59→23:05)
[2020-08-10] MEDS: INSULIN REGULAR, HUMAN 100 UNITS/ML, 10 ML VIAL (humuLIN R) SUBCUT PRN ×4 (05:37→23:08)
[2020-08-10] MEDS: INSULIN NPH/REGULAR 70-30, 100 UNITS/ML, 10 ML VIAL SUBCUT SCH ×2 (06:22→17:46)
[2020-08-10 06:52] LABS: BASOPHILS % (AUTO) 0.5 % (0.0-2.0); EOSINOPHILS % (AUTO) 0.1 % (0.0-4.0); HEMATOCRIT 24.9 % (36-54); HEMOGLOBIN 9.1 g/dL (14.0-18.0); LYMPHOCYTES # (AUTO) 0.5 K/uL (1.0-5.5); LYMPHOCYTES % (AUTO) 6.4 % (20.5-51.5); MEAN CORPUSCULAR HEMOGLOBIN 32 pg (27-31); MEAN CORPUSCULAR HGB CONC 36 % (32-36); MEAN CORPUSCULAR VOLUME 88 fL (79.0-98.0); MONOCYTES # (AUTO) 0.5 K/uL (0.0-1.0); MONOCYTES % (AUTO) 6.3 % (1.7-9.3); NEUTROPHILS # (AUTO) 7.3 K/uL (1.8-7.7); PLATELET COUNT (AUTO) 220 K/uL (130-430); RED BLOOD CELL COUNT(AUTO) 2.82 MIL/uL (4.2-6.2); RED CELL DISTRIBUTION WIDTH 14.2 % (9.0-15.0); WHITE BLOOD COUNT (AUTO) 8.4 K/uL (4.8-10.8)
[2020-08-10 07:56] LABS: ALBUMIN 1.5 g/dL (3.4-4.8); CREATININE 5.25 mg/dL (0.55-1.30); TOTAL BILIRUBIN 0.5 mg/dL (0.0-1.0)
[2020-08-10 08:00] LABS: NEUTROPHILS % (AUTO) 86.7 % (40.0-70.0)
[2020-08-10 08:48] LABS: POTASSIUM 4.1 mmol/L (3.5-5.1)
[2020-08-10] MEDS: ASCORBIC ACID 500 MG TABLET NG SCH (09:14)
[2020-08-10] MEDS: CHOLECALCIFEROL (VITAMIN D3) 5,000 UNIT TABLET NG SCH (09:14)
[2020-08-10] MEDS: SOD FERRIC GLUC COMPLEX/SUC 125 MG in NS 100 ML IV SCH (09:17)
[2020-08-10] MEDS: BALSAM PERU/CASTOR OIL 60 GM OINT...G. TP SCH (09:17)
[2020-08-10] MEDS: ALBUTEROL MDI INHALATION 8 GM INH INH PRN (11:34)
[2020-08-10] MEDS ORDERED: HYDROCORTISONE SOD SUCC 100 MG/2 ML VIAL ONE ×2 (17:11→23:04)
[2020-08-10] MEDS: MINERAL OIL/PETROLATUM,WHITE 3.5 GM EYE OINT. OP SCH (21:45)
[2020-08-11] VITALS (24 sets, daily range): BP systolic 89–145
[2020-08-11] MEDS: HYDROCORTISONE SOD SUCC 100 MG/2 ML VIAL IVP SCH ×4 (06:06→23:47)
[2020-08-11] MEDS: MEROPENEM 500 MG in NS 50 ML IV SCH ×3 (06:06→21:01)
[2020-08-11] MEDS: INSULIN NPH/REGULAR 70-30, 100 UNITS/ML, 10 ML VIAL SUBCUT SCH ×2 (06:06→17:30)
[2020-08-11] MEDS: INSULIN REGULAR, HUMAN 100 UNITS/ML, 10 ML VIAL (humuLIN R) SUBCUT PRN (06:07)
[2020-08-11] MEDS: PANTOPRAZOLE SODIUM 40 MG in NS 50 ML IV SCH ×4 (06:10→20:40)
[2020-08-11 07:04] LABS: CREATININE 5.63 mg/dL (0.55-1.30); POTASSIUM 3.9 mmol/L (3.5-5.1)
[2020-08-11 07:12] LABS: CALCIUM 6.8 mg/dL (8.4-11.0)
[2020-08-11] MEDS: MORPHINE I.V. DRIP 100 ML IV PRN (07:22)
[2020-08-11 08:01] LABS: C-REACTIVE PROTEIN QUANT 2.5 mg/dL (0-0.5)
[2020-08-11] MEDS: BALSAM PERU/CASTOR OIL 60 GM OINT...G. TP SCH (08:27)
[2020-08-11] MEDS: CHOLECALCIFEROL (VITAMIN D3) 5,000 UNIT TABLET NG SCH (08:27)
[2020-08-11] MEDS: ASCORBIC ACID 500 MG TABLET NG SCH (08:27)
[2020-08-11 08:49] LABS: BASOPHILS % (AUTO) 0.3 % (0.0-2.0); EOSINOPHILS % (AUTO) 0.4 % (0.0-4.0); HEMATOCRIT 25.4 % (36-54); HEMOGLOBIN 8.7 g/dL (14.0-18.0); LYMPHOCYTES # (AUTO) 0.5 K/uL (1.0-5.5); LYMPHOCYTES % (AUTO) 8.1 % (20.5-51.5); MEAN CORPUSCULAR HEMOGLOBIN 31 pg (27-31); MEAN CORPUSCULAR HGB CONC 34 % (32-36); MONOCYTES # (AUTO) 0.3 K/uL (0.0-1.0); MONOCYTES % (AUTO) 3.9 % (1.7-9.3); NEUTROPHILS # (AUTO) 5.9 K/uL (1.8-7.7); NEUTROPHILS % (AUTO) 87.3 % (40.0-70.0); PLATELET COUNT (AUTO) 211 K/uL (130-430); RED BLOOD CELL COUNT(AUTO) 2.84 MIL/uL (4.2-6.2); RED CELL DISTRIBUTION WIDTH 14.4 % (9.0-15.0); WHITE BLOOD COUNT (AUTO) 6.7 K/uL (4.8-10.8)
[2020-08-11 09:03] LABS: MEAN CORPUSCULAR VOLUME 90 fL (79.0-98.0)
[2020-08-11] MEDS ORDERED: HYDROCORTISONE SOD SUCC 100 MG/2 ML VIAL ONE ×3 (11:49→21:01)
[2020-08-11] MEDS: PHENYLEPHRINE HCL 100 MG in NS 240 ML IV PRN (12:51)
[2020-08-11] MEDS ORDERED: NOREPINEPHRINE 4 MG/4 ML VIAL IV ONE (14:15)
[2020-08-11] MEDS: NOREPINEPHRINE BITARTRATE 16 MG in NS 234 ML IV PRN (14:19)
[2020-08-11] MEDS: VASOPRESSIN 100 UNITS in D5W 45 ML IV PRN (14:27)
[2020-08-11] MEDS ORDERED: HEPARIN SODIUM,PORCINE 5,000 UNITS/ML VIAL ONE (15:15)
[2020-08-11] MEDS ORDERED: HEPARIN SODIUM, PORCINE 10,000 UNITS/ 10 ML VIAL MC ONE (18:00)
[2020-08-11] MEDS: MINERAL OIL/PETROLATUM,WHITE 3.5 GM EYE OINT. OP SCH (21:01)
[2020-08-12] VITALS (26 sets, daily range): BP systolic 90–132
[2020-08-12] MEDS: PANTOPRAZOLE SODIUM 40 MG in NS 50 ML IV SCH ×5 (02:28→20:26)
[2020-08-12] MEDS: PROPOFOL DRIP 100 ML IV PRN (02:29)
[2020-08-12] MEDS: MEROPENEM 500 MG in NS 50 ML IV SCH ×3 (06:25→21:26)
[2020-08-12] MEDS: HYDROCORTISONE SOD SUCC 100 MG/2 ML VIAL IVP SCH ×4 (06:25→23:34)
[2020-08-12] MEDS: INSULIN NPH/REGULAR 70-30, 100 UNITS/ML, 10 ML VIAL SUBCUT SCH ×2 (06:26→17:00)
[2020-08-12 06:40] LABS: BASOPHILS # (AUTO) 0.2 K/uL (0.0-0.2); BASOPHILS % (AUTO) 1.8 % (0.0-2.0); EOSINOPHILS # (AUTO) 0.3 K/uL (0.0-0.4); EOSINOPHILS % (AUTO) 2.6 % (0.0-4.0); HEMATOCRIT 26.1 % (36-54); HEMOGLOBIN 9.4 g/dL (14.0-18.0); LYMPHOCYTES % (AUTO) 7.5 % (20.5-51.5); MEAN CORPUSCULAR HEMOGLOBIN 32 pg (27-31); MEAN CORPUSCULAR HGB CONC 36 % (32-36); MEAN CORPUSCULAR VOLUME 88 fL (79.0-98.0); MONOCYTES # (AUTO) 0.8 K/uL (0.0-1.0); MONOCYTES % (AUTO) 5.7 % (1.7-9.3); NEUTROPHILS # (AUTO) 11.1 K/uL (1.8-7.7); NEUTROPHILS % (AUTO) 82.4 % (40.0-70.0); PLATELET COUNT (AUTO) 367 K/uL (130-430); RED BLOOD CELL COUNT(AUTO) 2.95 MIL/uL (4.2-6.2); RED CELL DISTRIBUTION WIDTH 14.9 % (9.0-15.0); WHITE BLOOD COUNT (AUTO) 13.5 K/uL (4.8-10.8)
[2020-08-12 06:46] LABS: CREATININE 4.9 mg/dL (0.55-1.30); POTASSIUM 3.9 mmol/L (3.5-5.1)
[2020-08-12 06:53] LABS: CALCIUM 6.9 mg/dL (8.4-11.0)
[2020-08-12 07:11] LABS: C-REACTIVE PROTEIN QUANT 4.3 mg/dL (0-0.5)
[2020-08-12 07:32] LABS: ERYTHROCYTE SEDIMENTATION RATE 28 MM/HR (0-15)
[2020-08-12] MEDS: ASCORBIC ACID 500 MG TABLET NG SCH (08:28)
[2020-08-12] MEDS: CHOLECALCIFEROL (VITAMIN D3) 5,000 UNIT TABLET NG SCH (08:28)
[2020-08-12] MEDS: BALSAM PERU/CASTOR OIL 60 GM OINT...G. TP SCH (08:29)
[2020-08-12] MEDS: MINERAL OIL/PETROLATUM,WHITE 3.5 GM EYE OINT. OP SCH (20:25)
[2020-08-12] MEDS ORDERED: HYDROCORTISONE SOD SUCC 100 MG/2 ML VIAL ONE (23:27)
[2020-08-13] VITALS (29 sets, daily range): BP systolic 100–181
[2020-08-13] MEDS: PANTOPRAZOLE SODIUM 40 MG in NS 50 ML IV SCH ×5 (01:05→21:42)
[2020-08-13] MEDS: MEROPENEM 500 MG in NS 50 ML IV SCH (05:22)
[2020-08-13] MEDS: HYDROCORTISONE SOD SUCC 100 MG/2 ML VIAL IVP SCH ×4 (05:23→23:52)
[2020-08-13 06:50] LABS: BASOPHILS % (AUTO) 1.4 % (0.0-2.0); EOSINOPHILS # (AUTO) 0.5 K/uL (0.0-0.4); EOSINOPHILS % (AUTO) 2.7 % (0.0-4.0); HEMATOCRIT 24.2 % (36-54); HEMOGLOBIN 8.6 g/dL (14.0-18.0); LYMPHOCYTES # (AUTO) 0.8 K/uL (1.0-5.5); LYMPHOCYTES % (AUTO) 4.7 % (20.5-51.5); MEAN CORPUSCULAR HEMOGLOBIN 32 pg (27-31); MEAN CORPUSCULAR HGB CONC 36 % (32-36); MEAN CORPUSCULAR VOLUME 89 fL (79.0-98.0); MONOCYTES # (AUTO) 0.6 K/uL (0.0-1.0); MONOCYTES % (AUTO) 3.4 % (1.7-9.3); NEUTROPHILS # (AUTO) 14.9 K/uL (1.8-7.7); PLATELET COUNT (AUTO) 301 K/uL (130-430); RED BLOOD CELL COUNT(AUTO) 2.72 MIL/uL (4.2-6.2)
[2020-08-13 06:51] LABS: BASOPHILS # (AUTO) 0.2 K/uL (0.0-0.2)
[2020-08-13 06:52] LABS: CREATININE 5.37 mg/dL (0.55-1.30); POTASSIUM 4.5 mmol/L (3.5-5.1)
[2020-08-13] MEDS: INSULIN NPH/REGULAR 70-30, 100 UNITS/ML, 10 ML VIAL SUBCUT SCH ×2 (07:00→17:00)
[2020-08-13 07:02] LABS: CALCIUM 6.9 mg/dL (8.4-11.0)
[2020-08-13 07:36] LABS: C-REACTIVE PROTEIN QUANT 6.3 mg/dL (0-0.5)
[2020-08-13] MEDS: ASCORBIC ACID 500 MG TABLET NG SCH (09:00)
[2020-08-13] MEDS: CHOLECALCIFEROL (VITAMIN D3) 5,000 UNIT TABLET NG SCH (09:00)
[2020-08-13] MEDS: BALSAM PERU/CASTOR OIL 60 GM OINT...G. TP SCH (09:00)
[2020-08-13 11:35] LABS: ERYTHROCYTE SEDIMENTATION RATE 13 MM/HR (0-15)
[2020-08-13 15:10] LABS: NEUTROPHILS % (AUTO) 87.8 % (40.0-70.0)
[2020-08-13] MEDS: MINERAL OIL/PETROLATUM,WHITE 3.5 GM EYE OINT. OP SCH (21:16)
[2020-08-13] MEDS ORDERED: HYDROCORTISONE SOD SUCC 100 MG/2 ML VIAL ONE (23:50)
[2020-08-14] VITALS (30 sets, daily range): BP systolic 98–188
[2020-08-14] MEDS: PANTOPRAZOLE SODIUM 40 MG in NS 50 ML IV SCH ×5 (04:16→20:13)
[2020-08-14] MEDS: HYDROCORTISONE SOD SUCC 100 MG/2 ML VIAL IVP SCH ×4 (05:35→23:50)
[2020-08-14] MEDS: INSULIN NPH/REGULAR 70-30, 100 UNITS/ML, 10 ML VIAL SUBCUT SCH ×2 (06:45→18:13)
[2020-08-14 07:00] LABS: BASOPHILS % (AUTO) 0.1 % (0.0-2.0); EOSINOPHILS # (AUTO) 0.1 K/uL (0.0-0.4); EOSINOPHILS % (AUTO) 0.4 % (0.0-4.0); HEMATOCRIT 23.3 % (36-54); LYMPHOCYTES # (AUTO) 0.9 K/uL (1.0-5.5); LYMPHOCYTES % (AUTO) 6.6 % (20.5-51.5); MEAN CORPUSCULAR HEMOGLOBIN 31 pg (27-31); MEAN CORPUSCULAR HGB CONC 34 % (32-36); MEAN CORPUSCULAR VOLUME 89 fL (79.0-98.0); MONOCYTES # (AUTO) 0.5 K/uL (0.0-1.0); MONOCYTES % (AUTO) 3.5 % (1.7-9.3); NEUTROPHILS # (AUTO) 12.2 K/uL (1.8-7.7); NEUTROPHILS % (AUTO) 89.4 % (40.0-70.0); PLATELET COUNT (AUTO) 161 K/uL (130-430); RED BLOOD CELL COUNT(AUTO) 2.61 MIL/uL (4.2-6.2); RED CELL DISTRIBUTION WIDTH 14.6 % (9.0-15.0); WHITE BLOOD COUNT (AUTO) 13.7 K/uL (4.8-10.8)
[2020-08-14 07:22] LABS: CALCIUM 7.1 mg/dL (8.4-11.0); CREATININE 4.9 mg/dL (0.55-1.30); POTASSIUM 4.4 mmol/L (3.5-5.1)
[2020-08-14 08:19] LABS: C-REACTIVE PROTEIN QUANT 8.4 mg/dL (0-0.5)
[2020-08-14] MEDS ORDERED: NALOXONE HCL 0.4 MG/ML AMP (NARCAN) IVP PRN (09:15)
[2020-08-14] MEDS: CHOLECALCIFEROL (VITAMIN D3) 5,000 UNIT TABLET NG SCH (09:47)
[2020-08-14] MEDS: ASCORBIC ACID 500 MG TABLET NG SCH (09:47)
[2020-08-14] MEDS: BALSAM PERU/CASTOR OIL 60 GM OINT...G. TP SCH (09:47)
[2020-08-14] MEDS: MORPHINE I.V. DRIP 100 ML IV PRN ×2 (09:49→20:15)
[2020-08-14 10:57] LABS: ERYTHROCYTE SEDIMENTATION RATE 61 MM/HR (0-15)
[2020-08-14 10:57] LABS: PROTHROMBIN TIME 10.4 SECS (9.5-12.5)
[2020-08-14] MEDS ORDERED: HYDROCORTISONE SOD SUCC 100 MG/2 ML VIAL ONE (11:38)
[2020-08-14] MEDS: NOREPINEPHRINE BITARTRATE 16 MG in NS 234 ML IV PRN ×2 (15:37→20:15)
[2020-08-14] MEDS: MINERAL OIL/PETROLATUM,WHITE 3.5 GM EYE OINT. OP SCH (20:12)
[2020-08-15] VITALS (30 sets, daily range): BP systolic 95–180
[2020-08-15] MEDS: PANTOPRAZOLE SODIUM 40 MG in NS 50 ML IV SCH ×3 (02:00→14:38)
[2020-08-15] MEDS: HYDROCORTISONE SOD SUCC 100 MG/2 ML VIAL IVP SCH ×3 (05:20→17:53)
[2020-08-15] MEDS: INSULIN NPH/REGULAR 70-30, 100 UNITS/ML, 10 ML VIAL SUBCUT SCH ×2 (06:22→17:53)
[2020-08-15 06:44] LABS: HEMATOCRIT 23.3 % (36-54); HEMOGLOBIN 7.8 g/dL (14.0-18.0); MEAN CORPUSCULAR HEMOGLOBIN 30 pg (27-31); MEAN CORPUSCULAR HGB CONC 34 % (32-36); MEAN CORPUSCULAR VOLUME 90 fL (79.0-98.0); PLATELET COUNT (AUTO) 173 K/uL (130-430); RED BLOOD CELL COUNT(AUTO) 2.59 MIL/uL (4.2-6.2); RED CELL DISTRIBUTION WIDTH 14.3 % (9.0-15.0); WHITE BLOOD COUNT (AUTO) 14.7 K/uL (4.8-10.8)
[2020-08-15 06:54] LABS: PROTHROMBIN TIME 10.7 SECS (9.5-12.5)
[2020-08-15 07:15] LABS: ALBUMIN 1.6 g/dL (3.4-4.8); CALCIUM 7.3 mg/dL (8.4-11.0); CREATININE 5.48 mg/dL (0.55-1.30); POTASSIUM 4.4 mmol/L (3.5-5.1); TOTAL BILIRUBIN 0.4 mg/dL (0.0-1.0)
[2020-08-15 08:27] LABS: C-REACTIVE PROTEIN QUANT 7.3 mg/dL (0-0.5)
[2020-08-15] MEDS: ASCORBIC ACID 500 MG TABLET NG SCH (08:52)
[2020-08-15] MEDS: CHOLECALCIFEROL (VITAMIN D3) 5,000 UNIT TABLET NG SCH (08:52)
[2020-08-15] MEDS: MORPHINE I.V. DRIP 100 ML IV PRN (08:52)
[2020-08-15] MEDS: BALSAM PERU/CASTOR OIL 60 GM OINT...G. TP SCH (08:52)
[2020-08-15 11:24] LABS: ERYTHROCYTE SEDIMENTATION RATE 68 MM/HR (0-15)
[2020-08-15 11:56] LABS: BAND % (MANUAL) 8 % (0-6)
[2020-08-15 11:57] LABS: BASOPHILS % (MANUAL) 0 % (0-2); EOSINOPHILS % (MANUAL) 0 % (0-7); LYMPHOCYTES % (MANUAL) 5 % (20-46); METAMYELOCYTES % 1 % (0-0); MONOCYTES % (MANUAL) 4 % (0-11)
[2020-08-15] MEDS ORDERED: HEPARIN SODIUM, PORCINE 10,000 UNITS/ 10 ML VIAL MC ONE (12:15)
[2020-08-15] MEDS ORDERED: HEPARIN SODIUM,PORCINE 5,000 UNITS/ML VIAL ONE (12:23)
[2020-08-15] MEDS: MIDAZOLAM IN NACL,ISO-OSMOT/PF 100 ML IV PRN ×2 (19:06→21:02)
[2020-08-15] MEDS: MINERAL OIL/PETROLATUM,WHITE 3.5 GM EYE OINT. OP SCH (21:01)
[2020-08-16] VITALS (27 sets, daily range): BP systolic 90–173
[2020-08-16] MEDS: HYDROCORTISONE SOD SUCC 100 MG/2 ML VIAL IVP SCH ×4 (00:02→18:05)
[2020-08-16 06:43] LABS: BASOPHILS # (AUTO) 0.1 K/uL (0.0-0.2); BASOPHILS % (AUTO) 0.9 % (0.0-2.0); EOSINOPHILS # (AUTO) 0.2 K/uL (0.0-0.4); EOSINOPHILS % (AUTO) 1.1 % (0.0-4.0); HEMATOCRIT 22.1 % (36-54); HEMOGLOBIN 7.6 g/dL (14.0-18.0); LYMPHOCYTES % (AUTO) 6.3 % (20.5-51.5); MEAN CORPUSCULAR HEMOGLOBIN 31 pg (27-31); MEAN CORPUSCULAR HGB CONC 34 % (32-36); MEAN CORPUSCULAR VOLUME 91 fL (79.0-98.0); MONOCYTES # (AUTO) 0.5 K/uL (0.0-1.0); MONOCYTES % (AUTO) 3.3 % (1.7-9.3); NEUTROPHILS # (AUTO) 14.2 K/uL (1.8-7.7); NEUTROPHILS % (AUTO) 88.4 % (40.0-70.0); PLATELET COUNT (AUTO) 210 K/uL (130-430); RED BLOOD CELL COUNT(AUTO) 2.43 MIL/uL (4.2-6.2); RED CELL DISTRIBUTION WIDTH 14.5 % (9.0-15.0)
[2020-08-16] MEDS: INSULIN NPH/REGULAR 70-30, 100 UNITS/ML, 10 ML VIAL SUBCUT SCH ×2 (07:00→17:00)
[2020-08-16 07:05] LABS: ALBUMIN 1.6 g/dL (3.4-4.8); CALCIUM 7.8 mg/dL (8.4-11.0); CREATININE 4.75 mg/dL (0.55-1.30); POTASSIUM 4.4 mmol/L (3.5-5.1); TOTAL BILIRUBIN 0.5 mg/dL (0.0-1.0)
[2020-08-16 08:11] LABS: ERYTHROCYTE SEDIMENTATION RATE 67 MM/HR (0-15)
[2020-08-16 08:36] LABS: C-REACTIVE PROTEIN QUANT 18.8 mg/dL (0-0.5)
[2020-08-16] MEDS: ASCORBIC ACID 500 MG TABLET NG SCH (08:57)
[2020-08-16] MEDS: CHOLECALCIFEROL (VITAMIN D3) 5,000 UNIT TABLET NG SCH (08:58)
[2020-08-16] MEDS: BALSAM PERU/CASTOR OIL 60 GM OINT...G. TP SCH (08:58)
[2020-08-16] MEDS: PANTOPRAZOLE SODIUM 40 MG in NS 50 ML IV SCH ×3 (10:00→20:30)
[2020-08-16] MEDS: MORPHINE I.V. DRIP 100 ML IV PRN (11:52)
[2020-08-16] MEDS: MIDAZOLAM IN NACL,ISO-OSMOT/PF 100 ML IV PRN (16:46)
[2020-08-16] MEDS: MINERAL OIL/PETROLATUM,WHITE 3.5 GM EYE OINT. OP SCH (22:00)
[2020-08-17] VITALS (29 sets, daily range): BP systolic 92–152
[2020-08-17] MEDS: HYDROCORTISONE SOD SUCC 100 MG/2 ML VIAL IVP SCH ×4 (00:35→18:17)
[2020-08-17] MEDS: PANTOPRAZOLE SODIUM 40 MG in NS 50 ML IV SCH ×5 (00:36→18:53)
[2020-08-17] MEDS: INSULIN NPH/REGULAR 70-30, 100 UNITS/ML, 10 ML VIAL SUBCUT SCH ×2 (05:28→17:08)
[2020-08-17 08:36] LABS: BASOPHILS # (AUTO) 0.1 K/uL (0.0-0.2); BASOPHILS % (AUTO) 0.5 % (0.0-2.0); EOSINOPHILS % (AUTO) 0.3 % (0.0-4.0); HEMATOCRIT 23.6 % (36-54); LYMPHOCYTES % (AUTO) 6.2 % (20.5-51.5); MEAN CORPUSCULAR HEMOGLOBIN 31 pg (27-31); MEAN CORPUSCULAR HGB CONC 34 % (32-36); MEAN CORPUSCULAR VOLUME 91 fL (79.0-98.0); MONOCYTES # (AUTO) 0.6 K/uL (0.0-1.0); MONOCYTES % (AUTO) 3.8 % (1.7-9.3); NEUTROPHILS # (AUTO) 14.9 K/uL (1.8-7.7); NEUTROPHILS % (AUTO) 89.2 % (40.0-70.0); PLATELET COUNT (AUTO) 189 K/uL (130-430); RED CELL DISTRIBUTION WIDTH 14.9 % (9.0-15.0); WHITE BLOOD COUNT (AUTO) 16.7 K/uL (4.8-10.8)
[2020-08-17] MEDS: ASCORBIC ACID 500 MG TABLET NG SCH (08:36)
[2020-08-17] MEDS: CHOLECALCIFEROL (VITAMIN D3) 5,000 UNIT TABLET NG SCH (08:36)
[2020-08-17] MEDS: BALSAM PERU/CASTOR OIL 60 GM OINT...G. TP SCH (08:36)
[2020-08-17 08:42] LABS: CALCIUM 7.7 mg/dL (8.4-11.0); CREATININE 5.15 mg/dL (0.55-1.30); POTASSIUM 4.5 mmol/L (3.5-5.1)
[2020-08-17] MEDS: MIDAZOLAM IN NACL,ISO-OSMOT/PF 100 ML IV PRN (15:23)
[2020-08-17] MEDS ORDERED: HEPARIN SODIUM,PORCINE 5,000 UNITS/ML VIAL ONE (16:33)
[2020-08-17] MEDS: MORPHINE I.V. DRIP 100 ML IV PRN (18:19)
[2020-08-17] MEDS: ALBUTEROL MDI INHALATION 8 GM INH INH PRN (20:54)
[2020-08-17] MEDS: MINERAL OIL/PETROLATUM,WHITE 3.5 GM EYE OINT. OP SCH (21:12)
[2020-08-18] VITALS (29 sets, daily range): BP systolic 91–138
[2020-08-18] MEDS: PANTOPRAZOLE SODIUM 40 MG in NS 50 ML IV SCH ×5 (02:30→21:18)
[2020-08-18] MEDS: DEXTROSE 50% JECT 50 ML DISP.SYRIN IVP PRN (04:34)
[2020-08-18] MEDS: HYDROCORTISONE SOD SUCC 100 MG/2 ML VIAL IVP SCH ×4 (05:37→18:43)
[2020-08-18 06:20] LABS: BASOPHILS # (AUTO) 0.1 K/uL (0.0-0.2); BASOPHILS % (AUTO) 0.6 % (0.0-2.0); EOSINOPHILS # (AUTO) 0.1 K/uL (0.0-0.4); EOSINOPHILS % (AUTO) 0.5 % (0.0-4.0); HEMATOCRIT 24.1 % (36-54); HEMOGLOBIN 8.2 g/dL (14.0-18.0); LYMPHOCYTES % (AUTO) 5.4 % (20.5-51.5); MEAN CORPUSCULAR HEMOGLOBIN 31 pg (27-31); MEAN CORPUSCULAR HGB CONC 34 % (32-36); MEAN CORPUSCULAR VOLUME 91 fL (79.0-98.0); MONOCYTES # (AUTO) 0.7 K/uL (0.0-1.0); MONOCYTES % (AUTO) 3.5 % (1.7-9.3); NEUTROPHILS # (AUTO) 16.9 K/uL (1.8-7.7); PLATELET COUNT (AUTO) 225 K/uL (130-430); RED BLOOD CELL COUNT(AUTO) 2.65 MIL/uL (4.2-6.2); RED CELL DISTRIBUTION WIDTH 15.1 % (9.0-15.0); WHITE BLOOD COUNT (AUTO) 18.7 K/uL (4.8-10.8)
[2020-08-18 06:29] LABS: CALCIUM 7.7 mg/dL (8.4-11.0); CREATININE 4.68 mg/dL (0.55-1.30); POTASSIUM 4.4 mmol/L (3.5-5.1)
[2020-08-18] MEDS: INSULIN NPH/REGULAR 70-30, 100 UNITS/ML, 10 ML VIAL SUBCUT SCH ×2 (07:00→17:00)
[2020-08-18] MEDS: MORPHINE I.V. DRIP 100 ML IV PRN (08:01)
[2020-08-18] MEDS: ASCORBIC ACID 500 MG TABLET NG SCH (08:04)
[2020-08-18] MEDS: BALSAM PERU/CASTOR OIL 60 GM OINT...G. TP SCH (08:04)
[2020-08-18] MEDS: CHOLECALCIFEROL (VITAMIN D3) 5,000 UNIT TABLET NG SCH (08:04)
[2020-08-18] MEDS: INSULIN REGULAR, HUMAN 100 UNITS/ML, 10 ML VIAL (humuLIN R) SUBCUT PRN ×2 (11:58→18:41)
[2020-08-18] MEDS: NOREPINEPHRINE BITARTRATE 16 MG in NS 234 ML IV PRN (16:30)
[2020-08-18] MEDS: MIDAZOLAM IN NACL,ISO-OSMOT/PF 100 ML IV PRN (16:30)
[2020-08-18] MEDS: ALBUTEROL MDI INHALATION 8 GM INH INH PRN (20:39)
[2020-08-18] MEDS: MINERAL OIL/PETROLATUM,WHITE 3.5 GM EYE OINT. OP SCH (21:18)
[2020-08-19] VITALS (27 sets, daily range): BP systolic 98–141
[2020-08-19] MEDS: HYDROCORTISONE SOD SUCC 100 MG/2 ML VIAL IVP SCH ×5 (00:25→23:52)
[2020-08-19] MEDS: PANTOPRAZOLE SODIUM 40 MG in NS 50 ML IV SCH ×5 (04:19→23:39)
[2020-08-19 06:39] LABS: BASOPHILS # (AUTO) 0.1 K/uL (0.0-0.2); BASOPHILS % (AUTO) 0.4 % (0.0-2.0); EOSINOPHILS # (AUTO) 0.1 K/uL (0.0-0.4); EOSINOPHILS % (AUTO) 0.3 % (0.0-4.0); HEMATOCRIT 24.1 % (36-54); HEMOGLOBIN 8.2 g/dL (14.0-18.0); LYMPHOCYTES # (AUTO) 0.9 K/uL (1.0-5.5); MEAN CORPUSCULAR HEMOGLOBIN 31 pg (27-31); MEAN CORPUSCULAR HGB CONC 34 % (32-36); MEAN CORPUSCULAR VOLUME 91 fL (79.0-98.0); MONOCYTES # (AUTO) 0.6 K/uL (0.0-1.0); NEUTROPHILS # (AUTO) 19.7 K/uL (1.8-7.7); PLATELET COUNT (AUTO) 217 K/uL (130-430); RED BLOOD CELL COUNT(AUTO) 2.66 MIL/uL (4.2-6.2); RED CELL DISTRIBUTION WIDTH 14.8 % (9.0-15.0); WHITE BLOOD COUNT (AUTO) 21.3 K/uL (4.8-10.8)
[2020-08-19 06:50] LABS: CALCIUM 7.4 mg/dL (8.4-11.0); CREATININE 5.19 mg/dL (0.55-1.30); POTASSIUM 4.5 mmol/L (3.5-5.1)
[2020-08-19] MEDS: BALSAM PERU/CASTOR OIL 60 GM OINT...G. TP SCH (08:17)
[2020-08-19] MEDS: CHOLECALCIFEROL (VITAMIN D3) 5,000 UNIT TABLET NG SCH (08:17)
[2020-08-19] MEDS: INSULIN NPH/REGULAR 70-30, 100 UNITS/ML, 10 ML VIAL SUBCUT SCH ×2 (08:17→18:02)
[2020-08-19] MEDS: ASCORBIC ACID 500 MG TABLET NG SCH (08:17)
[2020-08-19 08:23] LABS: NEUTROPHILS % (AUTO) 92.3 % (40.0-70.0)
[2020-08-19] MEDS ORDERED: HEPARIN SODIUM,PORCINE 5,000 UNITS/ML VIAL ONE (12:49)
[2020-08-19] MEDS ORDERED: HEPARIN SODIUM, PORCINE 10,000 UNITS/ 10 ML VIAL MC ONE (13:00)
[2020-08-19] MEDS: PIPERACILLIN/TAZO 3.375/DEX-IS 50 ML IV SCH ×2 (18:00→23:51)
[2020-08-19] MEDS: MINERAL OIL/PETROLATUM,WHITE 3.5 GM EYE OINT. OP SCH (20:50)
[2020-08-20] VITALS (30 sets, daily range): BP systolic 92–147
[2020-08-20] MEDS: PANTOPRAZOLE SODIUM 40 MG in NS 50 ML IV SCH ×4 (04:42→18:35)
[2020-08-20] MEDS: PIPERACILLIN/TAZO 3.375/DEX-IS 50 ML IV SCH ×3 (05:51→17:33)
[2020-08-20] MEDS: HYDROCORTISONE SOD SUCC 100 MG/2 ML VIAL IVP SCH ×3 (05:51→17:33)
[2020-08-20 06:45] LABS: BASOPHILS # (AUTO) 0.1 K/uL (0.0-0.2); BASOPHILS % (AUTO) 0.1 % (0.0-2.0); EOSINOPHILS # (AUTO) 0.1 K/uL (0.0-0.4); EOSINOPHILS % (AUTO) 0.2 % (0.0-4.0); HEMATOCRIT 25.5 % (36-54); HEMOGLOBIN 8.3 g/dL (14.0-18.0); LYMPHOCYTES % (AUTO) 2.8 % (20.5-51.5); MEAN CORPUSCULAR HEMOGLOBIN 30 pg (27-31); MEAN CORPUSCULAR HGB CONC 33 % (32-36); MEAN CORPUSCULAR VOLUME 91 fL (79.0-98.0); MONOCYTES # (AUTO) 1.8 K/uL (0.0-1.0); NEUTROPHILS % (AUTO) 91.9 % (40.0-70.0); PLATELET COUNT (AUTO) 229 K/uL (130-430); RED BLOOD CELL COUNT(AUTO) 2.79 MIL/uL (4.2-6.2); RED CELL DISTRIBUTION WIDTH 15.5 % (9.0-15.0)
[2020-08-20 07:05] LABS: CALCIUM 7.4 mg/dL (8.4-11.0); CREATININE 4.34 mg/dL (0.55-1.30); POTASSIUM 4.1 mmol/L (3.5-5.1)
[2020-08-20 08:01] LABS: WHITE BLOOD COUNT (AUTO) 35.9 K/uL (4.8-10.8)
[2020-08-20] MEDS: INSULIN NPH/REGULAR 70-30, 100 UNITS/ML, 10 ML VIAL SUBCUT SCH ×2 (08:54→17:31)
[2020-08-20] MEDS: ASCORBIC ACID 500 MG TABLET NG SCH (09:04)
[2020-08-20] MEDS: CHOLECALCIFEROL (VITAMIN D3) 5,000 UNIT TABLET NG SCH (09:04)
[2020-08-20] MEDS: BALSAM PERU/CASTOR OIL 60 GM OINT...G. TP SCH (09:04)
[2020-08-20] MEDS: MORPHINE I.V. DRIP 100 ML IV PRN (09:19)
[2020-08-20 14:06] LABS: HEMATOCRIT 23.7 % (36-54); HEMOGLOBIN 7.8 g/dL (14.0-18.0); MEAN CORPUSCULAR HEMOGLOBIN 30 pg (27-31); MEAN CORPUSCULAR HGB CONC 33 % (32-36); MEAN CORPUSCULAR VOLUME 91 fL (79.0-98.0); PLATELET COUNT (AUTO) 183 K/uL (130-430); RED BLOOD CELL COUNT(AUTO) 2.61 MIL/uL (4.2-6.2); RED CELL DISTRIBUTION WIDTH 15.3 % (9.0-15.0)
[2020-08-20 14:22] LABS: WHITE BLOOD COUNT (AUTO) 33.8 K/uL (4.8-10.8)
[2020-08-20 14:44] LABS: CORRECTED WHITE BLOOD COUNT 32.2 K/uL (4.5-11.0)
[2020-08-20 14:45] LABS: BAND % (MANUAL) 5 % (0-6); BASOPHILS % (MANUAL) 0 % (0-2); EOSINOPHILS % (MANUAL) 0 % (0-7); LYMPHOCYTES % (MANUAL) 3 % (20-46); MONOCYTES % (MANUAL) 8 % (0-11)
[2020-08-20] MEDS: MIDAZOLAM IN NACL,ISO-OSMOT/PF 100 ML IV PRN (15:23)
[2020-08-20] MEDS: MIDODRINE HCL 5 MG TABLET (PROAMATINE) PO SCH (21:14)
[2020-08-20] MEDS: MINERAL OIL/PETROLATUM,WHITE 3.5 GM EYE OINT. OP SCH (21:14)
[2020-08-21] VITALS (28 sets, daily range): BP systolic 82–162
[2020-08-21] MEDS: PIPERACILLIN/TAZO 3.375/DEX-IS 50 ML IV SCH ×4 (00:57→17:45)
[2020-08-21] MEDS: PANTOPRAZOLE SODIUM 40 MG in NS 50 ML IV SCH ×5 (00:58→20:53)
[2020-08-21] MEDS: HYDROCORTISONE SOD SUCC 100 MG/2 ML VIAL IVP SCH ×4 (00:58→18:38)
[2020-08-21] MEDS: INSULIN NPH/REGULAR 70-30, 100 UNITS/ML, 10 ML VIAL SUBCUT SCH ×2 (06:34→18:52)
[2020-08-21 07:39] LABS: CALCIUM 7.3 mg/dL (8.4-11.0); CREATININE 4.8 mg/dL (0.55-1.30); POTASSIUM 4.3 mmol/L (3.5-5.1)
[2020-08-21 08:56] LABS: HEMOGLOBIN 7.4 g/dL (14.0-18.0); MEAN CORPUSCULAR HEMOGLOBIN 30 pg (27-31); MEAN CORPUSCULAR HGB CONC 32 % (32-36); MEAN CORPUSCULAR VOLUME 92 fL (79.0-98.0); PLATELET COUNT (AUTO) 150 K/uL (130-430); RED BLOOD CELL COUNT(AUTO) 2.49 MIL/uL (4.2-6.2); RED CELL DISTRIBUTION WIDTH 15.4 % (9.0-15.0)
[2020-08-21 09:03] LABS: WHITE BLOOD COUNT (AUTO) 31.7 K/uL (4.8-10.8)
[2020-08-21 09:12] LABS: ATYPICAL LYMPHOCYTES % 0 % (0-0); BAND % (MANUAL) 7 % (0-6); BASOPHILS % (MANUAL) 0 % (0-2); EOSINOPHILS % (MANUAL) 0 % (0-7); LYMPHOCYTES % (MANUAL) 5 % (20-46); MONOCYTES % (MANUAL) 3 % (0-11)
[2020-08-21] MEDS: ASCORBIC ACID 500 MG TABLET NG SCH (09:12)
[2020-08-21] MEDS: CHOLECALCIFEROL (VITAMIN D3) 5,000 UNIT TABLET NG SCH (09:12)
[2020-08-21] MEDS: BALSAM PERU/CASTOR OIL 60 GM OINT...G. TP SCH (09:13)
[2020-08-21] MEDS: MIDODRINE HCL 5 MG TABLET (PROAMATINE) PO SCH ×2 (09:13→20:53)
[2020-08-21] MEDS: MORPHINE I.V. DRIP 100 ML IV PRN ×2 (10:10→21:31)
[2020-08-21] MEDS ORDERED: HEPARIN SODIUM,PORCINE 5,000 UNITS/ML VIAL ONE (12:30)
[2020-08-21] MEDS: INSULIN REGULAR, HUMAN 100 UNITS/ML, 10 ML VIAL (humuLIN R) SUBCUT PRN ×2 (13:24→18:54)
[2020-08-21] MEDS: MIDAZOLAM IN NACL,ISO-OSMOT/PF 100 ML IV PRN (13:25)
[2020-08-21] MEDS: NOREPINEPHRINE BITARTRATE 16 MG in NS 234 ML IV PRN (15:56)
[2020-08-21] MEDS: MINERAL OIL/PETROLATUM,WHITE 3.5 GM EYE OINT. OP SCH (20:53)
[2020-08-22] VITALS (30 sets, daily range): BP systolic 65–132
[2020-08-22] MEDS: PIPERACILLIN/TAZO 3.375/DEX-IS 50 ML IV SCH ×5 (00:40→23:21)
[2020-08-22] MEDS: HYDROCORTISONE SOD SUCC 100 MG/2 ML VIAL IVP SCH ×5 (00:41→23:22)
[2020-08-22] MEDS: INSULIN REGULAR, HUMAN 100 UNITS/ML, 10 ML VIAL (humuLIN R) SUBCUT PRN ×3 (01:06→12:36)
[2020-08-22] MEDS: PANTOPRAZOLE SODIUM 40 MG in NS 50 ML IV SCH ×5 (02:00→23:30)
[2020-08-22] MEDS: INSULIN NPH/REGULAR 70-30, 100 UNITS/ML, 10 ML VIAL SUBCUT SCH ×2 (07:06→17:39)
[2020-08-22] MEDS: MIDAZOLAM IN NACL,ISO-OSMOT/PF 100 ML IV PRN (07:10)
[2020-08-22] MEDS: ASCORBIC ACID 500 MG TABLET NG SCH (09:46)
[2020-08-22] MEDS: CHOLECALCIFEROL (VITAMIN D3) 5,000 UNIT TABLET NG SCH (09:47)
[2020-08-22] MEDS: MIDODRINE HCL 5 MG TABLET (PROAMATINE) PO SCH ×2 (09:51→21:00)
[2020-08-22] MEDS: BALSAM PERU/CASTOR OIL 60 GM OINT...G. TP SCH (09:51)
[2020-08-22 11:30] LABS: HEMATOCRIT 27.1 % (36-54); HEMOGLOBIN 8.7 g/dL (14.0-18.0); MEAN CORPUSCULAR HEMOGLOBIN 30 pg (27-31); MEAN CORPUSCULAR HGB CONC 32 % (32-36); MEAN CORPUSCULAR VOLUME 93 fL (79.0-98.0); PLATELET COUNT (AUTO) 122 K/uL (130-430); RED BLOOD CELL COUNT(AUTO) 2.92 MIL/uL (4.2-6.2); RED CELL DISTRIBUTION WIDTH 16.1 % (9.0-15.0)
[2020-08-22 11:34] LABS: WHITE BLOOD COUNT (AUTO) 48.9 K/uL (4.8-10.8)
[2020-08-22 12:26] LABS: CALCIUM 7.7 mg/dL (8.4-11.0); CREATININE 4.39 mg/dL (0.55-1.30); POTASSIUM 4.3 mmol/L (3.5-5.1)
[2020-08-22 12:54] LABS: BAND % (MANUAL) 14 % (0-6)
[2020-08-22 12:55] LABS: ATYPICAL LYMPHOCYTES % 0 % (0-0); BASOPHILS % (MANUAL) 0 % (0-2); EOSINOPHILS % (MANUAL) 0 % (0-7); LYMPHOCYTES % (MANUAL) 3 % (20-46); MONOCYTES % (MANUAL) 3 % (0-11)
[2020-08-22] MEDS ORDERED: COMMUNICATION ORDER XX ONE (13:30)
[2020-08-22] MEDS: NOREPINEPHRINE BITARTRATE 16 MG in NS 234 ML IV PRN (16:40)
[2020-08-22] MEDS: METOCLOPRAMIDE HCL 10 MG/2 ML VIAL IVP SCH ×2 (17:46→23:21)
[2020-08-22] MEDS: MINERAL OIL/PETROLATUM,WHITE 3.5 GM EYE OINT. OP SCH (21:00)
[2020-08-22] MEDS: MORPHINE I.V. DRIP 100 ML IV PRN (23:17)
[2020-08-23] VITALS (19 sets, daily range): BP systolic 0–188
[2020-08-23] MEDS: MIDAZOLAM IN NACL,ISO-OSMOT/PF 100 ML IV PRN (00:35)
[2020-08-23] MEDS ORDERED: NOREPINEPHRINE 4 MG/4 ML VIAL IV ONE ×3 (01:26→06:26)
[2020-08-23] MEDS: NOREPINEPHRINE BITARTRATE 16 MG in NS 234 ML IV PRN ×2 (01:37→06:44)
[2020-08-23] MEDS ORDERED: MICAFUNGIN SODIUM 100 MG in NS 100 ML IV SCH ×2 (04:00→09:00)
[2020-08-23] MEDS: PANTOPRAZOLE SODIUM 40 MG in NS 50 ML IV SCH ×3 (05:00→12:30)
[2020-08-23] MEDS: PIPERACILLIN/TAZO 3.375/DEX-IS 50 ML IV SCH ×2 (06:40→12:00)
[2020-08-23] MEDS: METOCLOPRAMIDE HCL 10 MG/2 ML VIAL IVP SCH ×2 (06:46→12:00)
[2020-08-23] MEDS: HYDROCORTISONE SOD SUCC 100 MG/2 ML VIAL IVP SCH ×2 (06:47→12:00)
[2020-08-23] MEDS: INSULIN NPH/REGULAR 70-30, 100 UNITS/ML, 10 ML VIAL SUBCUT SCH (07:30)
[2020-08-23] MEDS ORDERED: NOREPINEPHRINE BITARTRATE 32 MG in D5W 218 ML IV PRN (08:00)
[2020-08-23 08:18] LABS: HEMATOCRIT 27.9 % (36-54); HEMOGLOBIN 8.6 g/dL (14.0-18.0); MEAN CORPUSCULAR HEMOGLOBIN 29 pg (27-31); MEAN CORPUSCULAR HGB CONC 31 % (32-36); MEAN CORPUSCULAR VOLUME 95 fL (79.0-98.0); PLATELET COUNT (AUTO) 151 K/uL (130-430); RED BLOOD CELL COUNT(AUTO) 2.93 MIL/uL (4.2-6.2); RED CELL DISTRIBUTION WIDTH 17.4 % (9.0-15.0)
[2020-08-23 08:40] LABS: ALBUMIN 1.5 g/dL (3.4-4.8); CALCIUM 7.8 mg/dL (8.4-11.0); CREATININE 4.8 mg/dL (0.55-1.30); POTASSIUM 5.3 mmol/L (3.5-5.1); TOTAL BILIRUBIN 0.7 mg/dL (0.0-1.0)
[2020-08-23] MEDS: BALSAM PERU/CASTOR OIL 60 GM OINT...G. TP SCH (09:00)
[2020-08-23] MEDS: CHOLECALCIFEROL (VITAMIN D3) 5,000 UNIT TABLET NG SCH (09:00)
[2020-08-23] MEDS: ASCORBIC ACID 500 MG TABLET NG SCH (09:00)
[2020-08-23] MEDS: MIDODRINE HCL 5 MG TABLET (PROAMATINE) PO SCH (09:00)
[2020-08-23] MEDS ORDERED: PHENYLEPHRINE HCL 100 MG in NS 240 ML IV PRN (09:00)
[2020-08-23] MEDS ORDERED: ROCURONIUM BROMIDE 10 MG/ML (ZEMURON) IV ONE (11:04)
[2020-08-23 11:45] LABS: WHITE BLOOD COUNT (AUTO) 52.9 K/uL (4.8-10.8)
[2020-08-23 12:37] LABS: BAND % (MANUAL) 13 % (0-6); LYMPHOCYTES % (MANUAL) 4 % (20-46)
[2020-08-23 12:38] LABS: ATYPICAL LYMPHOCYTES % 0 % (0-0); BASOPHILS % (MANUAL) 0 % (0-2); EOSINOPHILS % (MANUAL) 0 % (0-7); MONOCYTES % (MANUAL) 3 % (0-11)
== END 2020-08-23 23:02 | disposition expired | DRG 870 ==
LOC: SED 17:47 → STU 20:55 → SMU 07-05 17:19 → SIC 07-12 14:50
PROVIDERS: ADMIT Internal Medicine Cardiovascular Disease; ATTEND Family Medicine
PROC: XW033E5 Introduction of Remdesivir Anti-infective into Peripheral Vein, Percutaneous Approach, New Technology Group 5 (ICD-10-PCS; 2020-07-03)
PROC: 3E0336Z Introduction of Nutritional Substance into Peripheral Vein, Percutaneous Approach (ICD-10-PCS; 2020-07-04)
PROC: 5A09357 Assistance with Respiratory Ventilation, Less than 24 Consecutive Hours, Continuous Positive Airway Pressure (ICD-10-PCS; 2020-07-12)
PROC: 0BH17EZ Insertion of Endotracheal Airway into Trachea, Via Natural or Artificial Opening (ICD-10-PCS; principal; 2020-07-13)
PROC: 5A1955Z Respiratory Ventilation, Greater than 96 Consecutive Hours (ICD-10-PCS; 2020-07-13)
PROC: 06HY33Z Insertion of Infusion Device into Lower Vein, Percutaneous Approach (ICD-10-PCS; 2020-07-15)
PROC: 02HV33Z Insertion of Infusion Device into Superior Vena Cava, Percutaneous Approach (ICD-10-PCS; 2020-07-29)
PROC: B548ZZA Ultrasonography of Superior Vena Cava, Guidance (ICD-10-PCS; 2020-07-29)
PROC: 30233N1 Transfusion of Nonautologous Red Blood Cells into Peripheral Vein, Percutaneous Approach (ICD-10-PCS; 2020-08-07)
DX: A41.89 Other specified sepsis (principal); E11.10 Type 2 diabetes mellitus with ketoacidosis without coma; E43 Unspecified severe protein-calorie malnutrition; I63.9 Cerebral infarction, unspecified; J12.82 Pneumonia due to coronavirus disease 2019; J96.21 Acute and chronic respiratory failure with hypoxia; N17.0 Acute kidney failure with tubular necrosis; R65.21 Severe sepsis with septic shock; U07.1 COVID-19; K72.00 Acute and subacute hepatic failure without coma; D68.59 Other primary thrombophilia; E66.2 Morbid (severe) obesity with alveolar hypoventilation; E87.1 Hypo-osmolality and hyponatremia; E87.2 Acidosis; G93.40 Encephalopathy, unspecified; K56.7 Ileus, unspecified; K92.2 Gastrointestinal hemorrhage, unspecified; I47.2 Ventricular tachycardia; G93.1 Anoxic brain damage, not elsewhere classified; Z68.41 Body mass index [BMI] 40.0-44.9, adult; Z99.11 Dependence on respirator [ventilator] status; E83.51 Hypocalcemia; R57.8 Other shock; E11.22 Type 2 diabetes mellitus with diabetic chronic kidney disease; D69.6 Thrombocytopenia, unspecified; E11.65 Type 2 diabetes mellitus with hyperglycemia; E86.0 Dehydration; E87.5 Hyperkalemia; G47.30 Sleep apnea, unspecified; I12.9 Hypertensive chronic kidney disease with stage 1 through stage 4 chronic kidney disease, or unspecified chronic kidney disease; N18.9 Chronic kidney disease, unspecified; L89.156 Pressure-induced deep tissue damage of sacral region; E11.43 Type 2 diabetes mellitus with diabetic autonomic (poly)neuropathy
CPT/HCPCS: 36415; 36600; 71045; 74018; 80048; 80053; 80061; 80076; 81000-TC; 82150-TC; 82272; 82550-TC; 82803-TC; 82962; 83036; 83605; 83615-TC; 83690-TC; 83735-TC; 83880; 84100-TC; 84439; 84443-TC; 84478-TC; 84484; 85007; 85018-TC; 85025; 85027; 85379; 85384-TC; 85610-TC; 85651-TC; 85730-TC; 86140; 86710; 86886; 86900; 86901; 86920; 87040-TC; 87070-TC; 87081; 87205-TC; 87230-TC; 90935; 90937; 92950; 93005; 93971; 94002; 94003; 94640; 94660; 94760; 99285; A6209; C1751; C9113; G0378; J0330; J0610; J0696; J0885; J1644; J1650; J1720; J1815; J1956; J2060; J2185; J2248; J2270; J2370; J2405; J2543; J2704; J2765; J2916; J2930; J2997; J3475; J3480; J3490; J7030; J7040; J7050; J7060; J8540; P9021; Q0144; U0003